=== PATIENT | male | born 1965 | race Caucasian/White ===

== ENCOUNTER → 2016-09-17 | Outpatient (CLI) | payer OTHER ==
[~2016-09-17] MED LIST: /BACL20TA; /DULO30CA; /DULO30CA OR; /FEXO18TA OR; /LANS30GR; /LANS30GR OR; /OXYC15TA; /TAMS4CA OR; ABIL1TAB5 PO; ABIL5TAB OR; ABIL5TAB5 PO; ADDE10CA PO; ADDE10TA PO; ADDE1TAB22 PO; ADDE5TAB5 PO; ADVAIR; ADVAIR INH; ALBU17IN2 IN; ALBUPOW9 INH; ARTHROTEC; ARTHROTEC OR; ASPI81TA85 PO; ATARAX OR; BACL10TA2 PO; CETI10TA OR; CLAR5CHW; CLAR5CHW OR; COLA100C2; COLA100C2 OR; CYCL10TA PO; DEPA250T32 PO; DEPA500T OR; DIAZ10TA2 PO; DOXY100T; DOXY100T OR; EFFE150C OR; ERYTHROMYCI1; ETOD20CA PO; FLECTOR PATCH; FLEX10TA2 PO; FLEXERIL; FLEXERIL PO; HYDR25TA8; HYDR25TA8 OR; IBUP80TA PO; LATU40TA PO; LIDO5DIS; LIDO5DIS EX; LYRI150C; LYRI200C; LYRI200C OR; LYRI225C; LYRI300C; MAGN500T2; METH5TAB2 OR; METH750T PO; METO5TAB2 OR; MIRT15TA50 PO; MULTIVIT OR; MULTIVIT PO; OPAN10TA16; OXYC10TA12 OR; OXYCODONE IR PO; PERC7.5T12 PO; PHEN 25 OR; PRAV10TA4 OR; PROTOPIC; PROV200T5 OR; PROV90AE; PROVIGIL; Patanol OU; RITA10TA; ROBA500T OR; SERO50TA PO; SERO50TA3 PO; SING10TA31; SING10TA31 OR; SKEL800T5 OR; SUMAPOW3 PO; TEMA15CA2 OR; TEMA30CA; TEMA30CA OR; TESTPOW5 IM; THERGRAN; TIZA4CAP3 PO; TIZA4TAB OR; TOPI100T; TRAM50TA2; TRAM50TA2 OR; TRAZ100T; TRAZ100T OR; TYLE500T53 OR; ULTR200T; ULTR300T; VENL75TA2 OR; VITA100027; VITA100027 OR; VITA100037 PO; VITA100072 PO; VOLT1GEL; VOLT1GEL EX; VOLT1GEL TOP; WELL100T PO; ZANA4CAP PO; ZOMI5TAB; ZOMI5TAB OR; mirtazapine PO; testosterone INJ; wellbutrin PO
--- NOTE | 2016-09-21 00:04 | ECWPNPC ---
PATIENT NAME: ROGERIO MEDINA : 1965 GENDER: MALE VISIT DATE: 09/17/2016 DISCHARGE DATE: 09/17/16 1012 VISIT LOCKED DATE TIME: PHYSICIAN: JENNIFER CAMPBELL RESOURCE: JENNIFER CAMPBELL REASON FOR APPOINTMENT 1. W/C BACK HISTORY OF PRESENT ILLNESS HISTORY OF PRESENT ILLNESS: PAIN THE PATIENT DESCRIBES THE PAIN... 50 YEAR OLD PATIENT WITH HISTORY OF CHRONIC BACK PAIN. PATIENT DESCRIBES THE PAIN ACHING, BURNING, SHARP, STABBING, TENDER, SORE, AND HAVING IT ALL THE TIME WITH A PAIN SCORE OF 8/10. PATIENT WAS INJURED IN A WORK RELATED INJURY ON 04/09/89 WHEN HE FELL OFF A ROOF WORKING FOR [employer] AND INJURED HIS THORACIC AND LUMBAR AREA, PATIENT WHEN TO THE ER THAT DAY. PATIENT WAS INJURED IN A WORK RELATED INJURY ON 09/20/1989 WHEN HE SLIPPED ON [employer] AND FELL DOWN, PATIENT WHEN TO THE ER THAT DAY AND PATIENT REPORTS THIS WAS THE LAST DAY THAT HE WORKED. PATIENT STATES THAT HE IS BIPOLAR. PATIENT STATES THAT HIS PAIN LEVELS HAVE GONE UP SINCE HIS LAST FOLLOW UP VISIT. PATIENT REPORTS THAT THE NUMBNESS THAT STARTS IN HIS LOW BACK AREA AND RADIATES DOWN TO HIS WHOLE RIGHT LEG TO THE FOOT, HAS BECOME A BURNING PAIN. PATIENT REPORTS THAT GABAPENTIN AND METHADONE DOES HELP WITH KEEPING HIS PAIN LEVELS DOWN, THAT HE WOULD BE IN UNCONTROLLABLE PAIN WITHOUT THE MEDICATIONS. PATIENT INDICATES, THE GABAPENTIN KEEPS THE BURNING PAIN FROM RADIATING ALL THE WAY DOWN TO HIS RIGHT FOOT AND STOPS IN THE RIGHT KNEE AREA. PATIENT REPORTS THAT HE NOTICES THAT HE HAS MORE PAIN IN THE MORNING THAN IN THE AFTERNOON. PATIENT DENIES UNEXPLAINABLE WEIGHT LOSS, FEVER, CHILLS, NEW CHANGES ON HIS URINARY OR BOWEL CONTROL. FALL RISK SCREENING: SCREENING :NO FALLS IN THE PAST YEAR CURRENT MEDICATIONS TAKING PREVACID 30 MG CAPSULE DELAYED RELEASE 1 CAPSULE BEFORE A MEAL ORALLY DAILY (DR. THOMAS) TAKING LIDODERM 5 % PATCH 3 PATCH TO INTACT SKIN REMOVE AFTER 12 HOURS EXTERNALLY 2 THORAX1 BACK APPLY TO PAINFUL AREA OF BACK ON 12 HRS, OFF 12 HRS TAKING IBUPROFEN 800 MG TABLET 1 TABLET ORALLY THREE TIMES A DAY TAKING GABAPENTIN 300 MG CAPSULE 1 CAPSULE ORALLY WORKERS COMPENSATION THREE TIMES A DAY FOR PAIN TAKING CYANOCOBALAMIN 1000 MCG TABLET 1 TABLET ORALLY EVERY OTHER DAY FOR B12 DEFICIENCY TAKING EPIPEN 2-PIERCE 0.3 MG/0.3ML DEVICE DIRECTED INJECTION ONCE FOR ALLERGIC REACTION, NOTES: NONE RECENTLY TAKING METRONIDAZOLE 0.75 % CREAM 1 APPLICATION A THIN LAYER TO AFFECTED AREA EXTERNALLY TWICE A DAY FOR ROSACEA TAKING CLINDAMYCIN PHOSPHATE 1 % SOLUTION 1 DROP TO RASH ON CHEST, BACK AND LEGS EXTERNALLY BID PRN, NOTES: NONE RECENT TAKING CLOTRIMAZOLE-BETAMETHASONE 1-0.05 % CREAM 1 APPLICATION TO BACK/CHEST/LEGS EXTERNALLY TWICE A DAY PRN FOLLICULITIS, NOTES: NONE RECENT TAKING MULTIVITAMINS MVI TABLET 1 TAB(S) ORALLY DAILY FOR GENERAL HEALTH TAKING VITAMIN D 1000 UNIT CAPSULE 1 CAPSULE ORALLY ONCE A DAY TAKING ASPIR-81 81 MG TABLET DELAYED RELEASE 1 TABLET ORALLY ONCE A DAY TAKING ARTIFICIAL TEARS 0.4 % SOLUTION 1 DROP INTO EACH EYE OPHTHALMIC UP TO 6 TIMES DAILY PRN DRY EYES TAKING AZELASTINE HCL 0.05 % SOLUTION 1 DROP INTO AFFECTED EYE OPHTHALMIC TWICE A DAY PRN ALLERGIES, NOTES: 1 WK TAKING HYDROXYZINE HCL 25MG TABLET 1 TABLET BY MOUTH QID PRN TAKING EVZIO 0.4 MG/0.4ML SOLUTION AUTO-INJECTOR DIRECTED INJECTION FOR EMERGENCY USE ONLY, NOTES: NONE RECENT TAKING ABILIFY 20 MG TABLET 1 TABLET ORALLY ONCE A DAY TAKING COLACE 100 MG CAPSULE 2 CAPSULES ORALLY FOUR TIMES A DAY TAKING PRAZOSIN HCL 1 MG CAPSULE 2 CAPSULE ORALLY QHS MDD=2 TAKING VOLTAREN 1 % GEL ONE APPLICATION EXTERNALLY EVERY 6 HOURS NEEDED TO LOW BACK, NOTES: INTERMITTENTLY TAKING SUMATRIPTAN SUCCINATE 100 MG TABLET 1 TABLET NEEDED ONE TIME ORALLY ONCE A DAY, NOTES: 2 MOS AGO TAKING TESTOSTERONE CYPIONATE 200 MG/ML OIL 1.75 ML INTRAMUSCULAR INJECTED MONTHLY (MDD: 1.75 ML/MONTH), NOTES: 03-17-16 TAKING PRAVASTATIN SODIUM 10 MG TABLET 1 TABLET ORALLY ONCE A DAY TAKING METHADONE HCL 10 MG TABLET 1 TABLET ORALLY 1 EVERY 6 HRS NEEDED DAILY FOR PAIN MDD4 TAKING ZANAFLEX 4 MG TABLET 1 TABLET NEEDED ORALLY 2 AT BEDTIME TAKING ADDERALL 15 MG TABLET 1 TAB(S) ORALLY TWICE DAILY MDD=2 TAKING BUPROPION HCL (XL) 450 MG TABLET EXTENDED RELEASE 24 HOUR TAKE ONE TABLET BY MOUTH EVERY MORNING ORALLY ONCE A DAY TAKING ZYRTEC 10 MG TABLET 1 TABLET ORALLY ONCE A DAY TAKING MIRTAZAPINE 45 MG TABLET 1 TABLET BEFORE BEDTIME IN THE EVENING ORALLY ONCE A DAY TAKING DEPAKOTE ER 250 MG TABLET EXTENDED RELEASE 24 HOUR 1 TAB(S) ORALLY DAILY TAKING DIAZEPAM 10 MG TABLET 1 TABLET NEEDED ORALLY TWICE DAILY PRN MDD=2 NOT-TAKING ERYTHROMYCIN 2 % PAD 1 PAD TO FACE NEEDED EXTERNALLY TWICE A DAY FOR ROSACEA NOT-TAKING BUPROPION HCL (XL) 300 MG TABLET EXTENDED RELEASE 24 HOUR TAKE ONE TABLET BY MOUTH EVERY MORNING ORALLY ONCE A DAY NOT-TAKING ALBUTEROL SULFATE HFA 108 (90 BASE) MCG/ACT AEROSOL SOLUTION 2 PUFFS INHALATION ONCE DAILY NEEDED, NOTES: NONE RECENTLY MEDICATION LIST REVIEWED AND RECONCILED WITH THE PATIENT PAST MEDICAL HISTORY CHRONIC BACK PAIN H/O T8 FRACTURE AND T6-7 DISC HERNIATION ASTHMA ALLERGIC RHINITIS DEPRESSION/BIPOLAR DISORDER ERECTILE DYSFUNCTION ROSACEA/FOLLICULIITS H/O KIDNEY STONES GASTROPARESIS INSOMNIA LOW TESOSTERONE HERNIATED DISC L3-L5, ALLERGIES ENVIRONMENTAL: ITCHY EYES, WHEEZING, SNEEZING: ALLERGY SURGICAL HISTORY TESTICLE REMOVED 02/2016 FAMILY HISTORY NO FAMILY HISTORY DOCUMENTED. SOCIAL HISTORY GENERAL: TOBACCO USE ARE YOU A:NONSMOKER LEARNING BARRIERS / SPECIAL NEEDS ORIENTED TO PLAN OF CARE: PATIENT, PAIN MANAGEMENT PATIENT, ORIENTED TO PLAN OF CARE: PATIENT, PAIN MANAGEMENT PATIENT. NEW PATIENT PAIN DIARY TODAY'S VISITNOTES FROM 0-10, WHAT LEVEL IS YOUR PAIN TODAY?0 PAIN CLINIC PFS, CLERGY, PUBLIC HEALTH REFERRALS PFS REFERRAL NEEDED?NO CLERGY REFERRAL NEEDED?NO PUBLIC HEALTH REFERRAL NEEDED?NO WAS THE PROVIDER NOTIFIED OF ANY PERTINENT INFO?NO PFS REFERRAL NEEDED?NO CLERGY REFERRAL NEEDED?NO PUBLIC HEALTH REFERRAL NEEDED?NO WAS THE PROVIDER NOTIFIED OF ANY PERTINENT INFO?NO HOSPITALIZATION/MAJOR DIAGNOSTIC PROCEDURE ACCIDENTAL OVERDOSE (SLEEPING PILLS) WAVERLY 11/2010 BIPOLAR DISORDER ([facility]) 2011 REVIEW OF SYSTEMS CONSTITUTIONAL: ANY CHANGE IN YOUR MEDICAL CONDITION? NO . CHILLS NO . FEVER NO . INFECTION: DO YOU HAVE NEW INFECTIONS? NO . DO YOU HAVE HISTORY OF MRSA? NO . MUSCULOSKELETAL: ANY NEW PATTERNS OF PAIN OR NUMBNESS? NO . GASTROENTEROLOGY: ANY NEW CHANGE IN BOWEL CONTROL? NO . GENITOURINARY: ANY NEW CHANGE IN BLADDER CONTROL? NO . IS THERE A CHANCE YOU COULD BE ? NO . HEMATOLOGY/LYMPH: DO YOU TAKE ANY BLOOD THINNERS? (FOR EXAMPLE- COUMADIN, PLAVIX, AGGRENOX, PLATEL, PRADAXA, OR XARELTO) NO . WHEN WAS YOUR LAST DOSE? DATE: TIME: . NEUROLOGY: HAVE YOU FALLEN IN THE PAST 6 MONTHS? NO . ANY NEW EXTREMITY NUMBNESS OR WEAKNESS? NO . CARDIOLOGY: DO YOU HAVE A PACEMAKER OR DEFIBRILLATOR? NO . RESPIRATORY: HAVE YOU BEEN SICK IN THE PAST WEEK? NO . FEVER NO . FLU LIKE SYMPTOMS? NO . COUGH NO . INTEGUMENTARY: DO YOU HAVE ANY RASHES OR OPEN SORES? NO . ALLERGIC/IMMUNO: ARE YOU ALLERGIC TO SHELLFISH OR IV DYE? NO . ANY NEW ALLERGIES? NO . PSYCHIATRIC: DO YOU HAVE THOUGHTS OF HURTING YOURSELF OR SOMEONE ELSE? NO . ARE YOU ABUSED, NEGLECTED, OR IN AN UNSAFE ENVIRONMENT? NO . ENDOCRINOLOGY: ARE YOU DIABETIC? NO . OTHER: DO YOU NEED ANY PRESCRIPTIONS? YES NEE TIZANADINE . IF YES, PLEASE LIST: ____ . ANY NEW PROBLEMS WITH YOUR MEDICATIONS? NO . WHEN DID YOU LAST EAT? ____ . WHEN DID YOU LAST DRINK? ____ . WHAT DID YOU LAST DRINK? ____ . NAME OF PERSON DRIVING YOU HOME? ____ . DO YOU HAVE ANY OTHER QUESTIONS OR CONCERNS NO . REVIEWED BY: PROVIDER: JENNIFER CAMPBELL MD . VITAL SIGNS WT 175 LBS, HT 68 IN, BMI 26.61 INDEX, BP 133/75 MM HG, HR 94 /MIN, RR 16 /MIN, TEMP 97.6 F, OXYGEN SAT % 98, SAFE IN ENV? (Y/N) Y, NA INITIALS TL 0851, REVIEWED BY: KG. EXAMINATION : PATIENT IS ALERT O X 3 AND COOPERATIVE. PATIENT AMBULATES FLEXED OVER AT 5 DEGREES WITH AN ANTALGIC GAIT. PATIENT IS ABLE TO EXTEND BACK AT 5 DEGREES AND FLEX AT 80 DEGREES. LEFT LEG IS WEAKER ESPECIALLY AT FLEXION AND EXTENSION, AND BOTH LEGS ARE RELATIVELY WEAK. PAIN IN THE LUMBAR AND THORACIC AREA. MRI OF THE LUMBAR SPINE DONE ON 12/23/2015 SHOWS A DIFFUSE DISC BULGES AT L3-L4, L4-L5, AND L5-S1 LEVELS WITH MINIMAL THECAL SAC COMPRESSION AT L3-L4 AND L4-L5, THERE IS A GRADE 1 SPONDYLOLISTHESIS OF L5 ON S1, AND THERE IS A COMPRESSION OF THE L5 NERVES IN THE NEURAL FORAMINA. EKG DONE ON 02/25/2016 HAS A QT INTERVAL OF 346 NAYELY SECONDS. 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 RADICULOPATHY, LUMBOSACRAL REGION - M51.17 TREATMENT SACROILIITIS, NOT ELSEWHERE CLASSIFIED REFILL LIDODERM PATCH, 5 %, 3 PATCH TO INTACT SKIN REMOVE AFTER 12 HOURS, EXTERNALLY 2 THORAX1 BACK, APPLY TO PAINFUL AREA OF BACK ON 12 HRS, OFF 12 HRS, 30 DAYS, 90, REFILLS 2 REFILL IBUPROFEN TABLET, 800 MG, 1 TABLET, ORALLY WITH FOOD, THREE TIMES A DAY, 30 DAY(S), 90 TABLET, REFILLS 1 REFILL GABAPENTIN CAPSULE, 300 MG, 1 CAPSULE, ORALLY WORKERS COMPENSATION, FOUR TIMES DAILY MDD4, 30 DAY(S), 120, REFILLS 2 REFILL PREVACID CAPSULE DELAYED RELEASE, 30 MG, 1 CAPSULE BEFORE A MEAL, ORALLY, DAILY, 30 DAY(S), 30, REFILLS 2 REFILL METHADONE HCL TABLET, 10 MG, 1 TABLET, ORALLY, 1 EVERY 6 HRS NEEDED DAILY FOR PAIN MDD4, 30 DAY(S), 120, REFILLS 0 REFILL ZANAFLEX TABLET, 4 MG, 1 TABLET NEEDED, ORALLY, BEFORE BEDTIME MAY REPEAT IN 4 HRS MDD2, 30 DAY(S), 60, REFILLS 2 REFILL COLACE CAPSULE, 100 MG, 2 CAPSULES, ORALLY, FOUR TIMES A DAY MDD8, 30 DAY(S), 240, REFILLS 2 REFILL VOLTAREN GEL, 1 %, ONE APPLICATION, EXTERNALLY, EVERY 6 HOURS NEEDED TO LOW BACK, 30 DAY(S), 3 TUBE, REFILLS 2, NOTES: INTERMITTENTLY NOTES: WE DISCUSSED SEVERAL ISSUES WITH MR. MEDINA'S PAIN MANAGEMENT CASE. PATIENT IS TAKING GABAPENTIN FOR NEUROPATHIC PAIN AND IS WORKING WELL IN DECREASE SOME OF THE PAIN. PATIENT WILL START ON 4 TABLETS OF GABAPENTIN A DAY TO SEE IF THERE ANY FURTHER PAIN RELIEF FROM NEUROPATHIC PAIN. PATIENT WILL RECEIVE A SIJ UNDER MTG, SCHEDULED NEXT WEEK, I ADVISED PATIENT TO SEE HOW THE PAIN RELIEF GOES WITH THE COMBINATION OF MEDICATION AND INJECTION. PATIENT WILL RECEIVE A REFILL OF LIDODERM PATCH, IBUPROFEN, GABAPENTIN, PREVACID, METHADONE, ZANAFLEX, COLACE, AND VOLTAREN. THE CURRENT MEDICATIONS TAKEN INCREASES THE PATIENT'S MOBILITY AND FUNCTIONALITY. UTOX DONE ON 07/01/2016 SHOWS CONSISTENT RESULTS. OPIOID RISK TOOL COMPLETED TODAY. INSTRUCTIONS WERE GIVEN, QUESTIONS WERE ANSWERED, PATIENT REPORTS UNDERSTANDING AND AGREES WITH THE PLAN. I, QUYNH HOLGUIN, DOCUMENTED THE ABOVE INFORMATION ACTING A SCRIBE FOR DR. CAMPBELL. I HAVE REVIEWED THE ABOVE DOCUMENT, WRITTEN BY QUYNH HOLGUIN SCRIBYumiko AND I VERIFY THAT IT IS ACCURATE. PROCEDURES PN WORKMANS' COMP OPINION IN YOUR OPINION, WAS THE INCIDENT THAT THE PATIENT DESCRIBED THE COMPETENT MEDICAL CAUSE OF THIS INJURY/ILLNESS? YES ARE THE PATIENT'S COMPLAINTS CONSISTENT WITH HIS/HER HISTORY OF THE INJURY/ILLNESS? YES IS THE PATIENT'S HISTORY OF THE INJURY/ILLNESS CONSISTENT WITH YOUR OBJECTIVE FINDING? YES WHAT IS THE PERCENTAGE OF TEMPORARY IMPAIRMENT? MARKED = 75% IS THE PATIENT WORKING? NO DOCTOR ON SITE: JENNIFER BACON MD PROCEDURE CODES FA211 ESTABILISHED PATIENT [facility] CHARGE G8730 PAIN ASSESS POS TOOL F/U PLAN DOC G8427 DOC MEDS VERIFIED W/PT OR RE FOLLOW UP 6 WEEKS ELECTRONICALLY SIGNED BY JENNIFER CAMPBELL MD ON 09/20/2016 AT 10:50 PM EST DISCLAIMER : THIS IS A VISIT SUMMARY EXTRACTED FROM THE [employer] CHART. IT IS NOT A COPY OF THE [employer] PROGRESS NOTE. VIJI
== END ==
LOC: M PAIN 08:40
PROVIDERS: ATTEND Anesthesiology
DX: M46.1 Sacroiliitis, not elsewhere classified (principal); M51.16 Intervertebral disc disorders with radiculopathy, lumbar region; M51.17 Intervertebral disc disorders with radiculopathy, lumbosacral region; M54.5 Low back pain; M89.29 Other disorders of bone development and growth, multiple sites; Z79.891 Long term (current) use of opiate analgesic; Z79.899 Other long term (current) drug therapy; Z79.82 Long term (current) use of aspirin; Z91.09 Other allergy status, other than to drugs and biological substances

== ENCOUNTER → 2016-09-23 | Outpatient (CLI) | payer OTHER ==
[~2016-09-23] MED LIST changes: +BUPIVACAINE HCL 0.25% 30 ML VIAL As Ordered ONE; +ISOVUE-M 300 61% 15ML VIAL (Q9967) As Ordered ONE; +LIDOCAINE 1% SDV INJ 30 ML VIAL As Ordered ONE; +TRIAMCINOLONE ACETONIDE SUSP 40 MG/ML VIAL (J3301) As Ordered ONE
--- NOTE | 2016-09-23 18:25 | REP ---
SI joint series: Limited. Five views: History: Injection procedure for pain. 18 seconds of fluoroscopy time is reported. Findings: A sequence of five fluoroscopically obtained intraprocedural spot radiographs of the SI joints document various needle positions and contrast injections associated with bilateral SI joint injection procedure. Signed by Souleymane Gloria MD 09/23/2016 06:42 P
--- NOTE | 2016-10-05 00:06 | ECWPNPC ---
PATIENT NAME: ROGERIO MEDINA : 1965 GENDER: MALE VISIT DATE: 09/23/2016 DISCHARGE DATE: 09/23/16 1029 VISIT LOCKED DATE TIME: PHYSICIAN: JENNIFER CAMPBELL RESOURCE: JENNIFER CAMPBELL REASON FOR APPOINTMENT 1. W/C SIJ HISTORY OF PRESENT ILLNESS HISTORY OF PRESENT ILLNESS: PAIN THE PATIENT DESCRIBES THE PAIN... FALL RISK SCREENING: SCREENING :NO FALLS IN THE PAST YEAR CURRENT MEDICATIONS TAKING CYANOCOBALAMIN 1000 MCG TABLET 1 TABLET ORALLY EVERY OTHER DAY FOR B12 DEFICIENCY, NOTES: 09/22/16 TAKING EPIPEN 2-PIERCE 0.3 MG/0.3ML DEVICE DIRECTED INJECTION ONCE FOR ALLERGIC REACTION, NOTES: NONE RECENTLY TAKING METRONIDAZOLE 0.75 % CREAM 1 APPLICATION A THIN LAYER TO AFFECTED AREA EXTERNALLY TWICE A DAY FOR ROSACEA, NOTES: NONE LATELY TAKING CLINDAMYCIN PHOSPHATE 1 % SOLUTION 1 DROP TO RASH ON CHEST, BACK AND LEGS EXTERNALLY BID PRN, NOTES: NONE RECENT TAKING CLOTRIMAZOLE-BETAMETHASONE 1-0.05 % CREAM 1 APPLICATION TO BACK/CHEST/LEGS EXTERNALLY TWICE A DAY PRN FOLLICULITIS, NOTES: NONE RECENT TAKING MULTIVITAMINS MVI TABLET 1 TAB(S) ORALLY DAILY FOR GENERAL HEALTH, NOTES: 09/23/16 0600 TAKING VITAMIN D 1000 UNIT CAPSULE 1 CAPSULE ORALLY ONCE A DAY, NOTES: 09/22/16 TAKING ASPIR-81 81 MG TABLET DELAYED RELEASE 1 TABLET ORALLY ONCE A DAY, NOTES: 09/22/16 2200 TAKING ARTIFICIAL TEARS 0.4 % SOLUTION 1 DROP INTO EACH EYE OPHTHALMIC UP TO 6 TIMES DAILY PRN DRY EYES, NOTES: 09/22/16 TAKING AZELASTINE HCL 0.05 % SOLUTION 1 DROP INTO AFFECTED EYE OPHTHALMIC TWICE A DAY PRN ALLERGIES, NOTES: NONE LATELY TAKING HYDROXYZINE HCL 25MG TABLET 1 TABLET BY MOUTH QID PRN TAKING EVZIO 0.4 MG/0.4ML SOLUTION AUTO-INJECTOR DIRECTED INJECTION FOR EMERGENCY USE ONLY, NOTES: NONE RECENT TAKING ABILIFY 20 MG TABLET 1 TABLET ORALLY ONCE A DAY, NOTES: 09/23/16 0600 TAKING PRAZOSIN HCL 1 MG CAPSULE 2 CAPSULE ORALLY QHS MDD=2, NOTES: 09/22/16 220 TAKING SUMATRIPTAN SUCCINATE 100 MG TABLET 1 TABLET NEEDED ONE TIME ORALLY ONCE A DAY, NOTES: NONE LATELY TAKING TESTOSTERONE CYPIONATE 200 MG/ML OIL 1.75 ML INTRAMUSCULAR INJECTED MONTHLY (MDD: 1.75 ML/MONTH), NOTES: 08/18/16 TAKING PRAVASTATIN SODIUM 10 MG TABLET 1 TABLET ORALLY ONCE A DAY, NOTES: 09/22/162199 TAKING ADDERALL 15 MG TABLET 1 TAB(S) ORALLY TWICE DAILY MDD=2, NOTES: 09/23/16599 TAKING BUPROPION HCL (XL) 450 MG TABLET EXTENDED RELEASE 24 HOUR TAKE ONE TABLET BY MOUTH EVERY MORNING ORALLY ONCE A DAY, NOTES: 09/23/16599 TAKING ZYRTEC 10 MG TABLET 1 TABLET ORALLY ONCE A DAY, NOTES: 09/23/16599 TAKING MIRTAZAPINE 45 MG TABLET 1 TABLET BEFORE BEDTIME IN THE EVENING ORALLY ONCE A DAY, NOTES: 09/22 TAKING DEPAKOTE ER 250 MG TABLET EXTENDED RELEASE 24 HOUR 1 TAB(S) ORALLY DAILY, NOTES: 09/22/162199 TAKING DIAZEPAM 10 MG TABLET 1 TABLET NEEDED ORALLY TWICE DAILY PRN MDD=2, NOTES: 09/23/16729 TAKING LIDODERM 5 % PATCH 3 PATCH TO INTACT SKIN REMOVE AFTER 12 HOURS EXTERNALLY 2 THORAX1 BACK APPLY TO PAINFUL AREA OF BACK ON 12 HRS, OFF 12 HRS, NOTES: 09/22/16 TAKING IBUPROFEN 800 MG TABLET 1 TABLET ORALLY WITH FOOD THREE TIMES A DAY, NOTES: 09/23/16599 TAKING GABAPENTIN 300 MG CAPSULE 1 CAPSULE ORALLY WORKERS COMPENSATION FOUR TIMES DAILY MDD4, NOTES: 09/23/16599 TAKING PREVACID 30 MG CAPSULE DELAYED RELEASE 1 CAPSULE BEFORE A MEAL ORALLY DAILY, NOTES: 09/23/16599 TAKING METHADONE HCL 10 MG TABLET 1 TABLET ORALLY 1 EVERY 6 HRS NEEDED DAILY FOR PAIN MDD4, NOTES: 09/23/16599 TAKING COLACE 100 MG CAPSULE 2 CAPSULES ORALLY FOUR TIMES A DAY MDD8, NOTES: 09/23/16599 TAKING VOLTAREN 1 % GEL ONE APPLICATION EXTERNALLY EVERY 6 HOURS NEEDED TO LOW BACK, NOTES: INTE09/21/16 TAKING ZANAFLEX 4 MG TABLET 1 TABLET NEEDED ORALLY BEFORE BEDTIME MAY REPEAT IN 4 HRS MDD2, NOTES: 09/22/162199 NOT-TAKING ERYTHROMYCIN 2 % PAD 1 PAD TO FACE NEEDED EXTERNALLY TWICE A DAY FOR ROSACEA NOT-TAKING ALBUTEROL SULFATE HFA 108 (90 BASE) MCG/ACT AEROSOL SOLUTION 2 PUFFS INHALATION ONCE DAILY NEEDED, NOTES: NONE RECENTLY DISCONTINUED BUPROPION HCL (XL) 300 MG TABLET EXTENDED RELEASE 24 HOUR TAKE ONE TABLET BY MOUTH EVERY MORNING ORALLY ONCE A DAY MEDICATION LIST REVIEWED AND RECONCILED WITH THE PATIENT PAST MEDICAL HISTORY CHRONIC BACK PAIN H/O T8 FRACTURE AND T6-7 DISC HERNIATION ASTHMA ALLERGIC RHINITIS DEPRESSION/BIPOLAR DISORDER ERECTILE DYSFUNCTION ROSACEA/FOLLICULIITS H/O KIDNEY STONES GASTROPARESIS INSOMNIA LOW TESOSTERONE HERNIATED DISC L3-L5, ALLERGIES ENVIRONMENTAL: ITCHY EYES, WHEEZING, SNEEZING: ALLERGY SOCIAL HISTORY GENERAL: TOBACCO USE ARE YOU A:NONSMOKER LEARNING BARRIERS / SPECIAL NEEDS ORIENTED TO PLAN OF CARE: PATIENT, PAIN MANAGEMENT PATIENT, ORIENTED TO PLAN OF CARE: PATIENT, PAIN MANAGEMENT PATIENT. NEW PATIENT PAIN DIARY TODAY'S VISITNOTES FROM 0-10, WHAT LEVEL IS YOUR PAIN TODAY?0 PAIN CLINIC PFS, CLERGY, PUBLIC HEALTH REFERRALS PFS REFERRAL NEEDED?NO CLERGY REFERRAL NEEDED?NO PUBLIC HEALTH REFERRAL NEEDED?NO WAS THE PROVIDER NOTIFIED OF ANY PERTINENT INFO?NO PFS REFERRAL NEEDED?NO CLERGY REFERRAL NEEDED?NO PUBLIC HEALTH REFERRAL NEEDED?NO WAS THE PROVIDER NOTIFIED OF ANY PERTINENT INFO?NO REVIEW OF SYSTEMS CONSTITUTIONAL: ANY CHANGE IN YOUR MEDICAL CONDITION? NO . CHILLS NO . FEVER NO . INFECTION: DO YOU HAVE NEW INFECTIONS? NO . DO YOU HAVE HISTORY OF MRSA? NO . MUSCULOSKELETAL: ANY NEW PATTERNS OF PAIN OR NUMBNESS? NO . GASTROENTEROLOGY: ANY NEW CHANGE IN BOWEL CONTROL? NO . GENITOURINARY: ANY NEW CHANGE IN BLADDER CONTROL? NO . IS THERE A CHANCE YOU COULD BE ? NO . HEMATOLOGY/LYMPH: DO YOU TAKE ANY BLOOD THINNERS? (FOR EXAMPLE- COUMADIN, PLAVIX, AGGRENOX, PLATEL, PRADAXA, OR XARELTO) NO . WHEN WAS YOUR LAST DOSE? DATE: TIME: . NEUROLOGY: HAVE YOU FALLEN IN THE PAST 6 MONTHS? NO . ANY NEW EXTREMITY NUMBNESS OR WEAKNESS? NO . CARDIOLOGY: DO YOU HAVE A PACEMAKER OR DEFIBRILLATOR? NO . RESPIRATORY: HAVE YOU BEEN SICK IN THE PAST WEEK? NO . FEVER NO . FLU LIKE SYMPTOMS? NO . COUGH NO . INTEGUMENTARY: DO YOU HAVE ANY RASHES OR OPEN SORES? NO . ALLERGIC/IMMUNO: ARE YOU ALLERGIC TO SHELLFISH OR IV DYE? NO . ANY NEW ALLERGIES? NO . PSYCHIATRIC: DO YOU HAVE THOUGHTS OF HURTING YOURSELF OR SOMEONE ELSE? NO . ARE YOU ABUSED, NEGLECTED, OR IN AN UNSAFE ENVIRONMENT? NO . ENDOCRINOLOGY: ARE YOU DIABETIC? NO . OTHER: DO YOU NEED ANY PRESCRIPTIONS? NO . IF YES, PLEASE LIST: ____ . ANY NEW PROBLEMS WITH YOUR MEDICATIONS? NO . WHEN DID YOU LAST EAT? ____09/22/16 2359 . WHEN DID YOU LAST DRINK? ____09/23/16 0600 . WHAT DID YOU LAST DRINK? ____BLACK COFFEE . NAME OF PERSON DRIVING YOU HOME? ____TERRI . DO YOU HAVE ANY OTHER QUESTIONS OR CONCERNS NO . REVIEWED BY: PROVIDER: . VITAL SIGNS WT 175 LBS, HT 68 IN, BMI 26.61 INDEX, BP 112/67 MM HG, HR 76 /MIN, RR 16 /MIN, TEMP 96.9 F, OXYGEN SAT % 96, NA INITIALS TL 0847, REVIEWED BY: MLF. ASSESSMENTS SACROILIITIS, NOT ELSEWHERE CLASSIFIED - M46.1 (PRIMARY) PROCEDURES PN SI PRE PROCEDURE DIAGNOSIS SACROILIITIS, SACROILIAC JOINT DYSFUNCTION POST PROCEDURE DIAGNOSIS SACROILIITIS, SACROILIAC JOINT DYSFUNCTION PROCEDURE BILATERAL SACROILIAC JOINT BLOCK SURGEON DR. JENNIFER CAMPBELL MEDICAL SECRETARY RECEPTIONIST NONE ANESTHESIA LOCAL PRE PROCEDURE NOTE PATIENT WITH HISTORY OF CHRONIC LOW BACK PAIN. I EVALUATED THE PATIENT AND REVIEWED THE CHART. I WENT OVER THE RISKS, ALTERNATIVES, AND BENEFITS ASSOCIATED WITH THIS PROCEDURE. THE PATIENT WOULD LIKE TO PROCEED AND GAVE CONSENT TO PERFORM THE PROCEDURE. THE PATIENT DENIES UNEXPLAINABLE WEIGHT LOSS, FEVER, CHILLS, OR NEW CHANGES IN URINARY OR BOWEL CONTROL DESCRIPTION OF PROCEDURE THE PATIENT WAS BROUGHT TO THE PROCEDURE ROOM AND PLACED IN THE PRONE POSITION. THE LUMBOSACRAL AREA WAS CLEANED WITH CHLORAPREP SOLUTION AND DRAPED ASEPTICALLY. THE PROCEDURE WAS DONE UNDER STERILE CONDITIONS. I CHECKED LATERALITY AND THE LEVEL WHERE THE PROCEDURE WAS GOING TO BE PERFORMED WITH THE PATIENT AND THE SUPPORTING STAFF AT THE MOMENT OF THE TIME OUT IN THE PROCEDURE ROOM. UNDER FLUOROSCOPIC GUIDANCE, TARGET POINT WAS SELECTED AT THE LOWER BORDER OF THE RIGHT AND LEFT SACROILIAC JOINT. TARGET POINT WAS SELECTED AFTER MEDIAL ROTATION AND TILT OF THE MAGNIFIER OF THE C-ARM. LIDOCAINE WAS USED TO NUMB THE SKIN AND SUBCUTANEOUS TISSUE BELOW IT. A SPINAL NEEDLE, 22-GAUGE, WAS ADVANCED UNDER FLUOROSCOPIC GUIDANCE AND FOLLOWING PATIENT FEEDBACK UNTIL THE TARGET AREA WAS TOUCHED. THE POSITION OF THE NEEDLE WAS VERIFIED WITH AP AND LATERAL VIEWS. AFTER PROPER POSITION OF THE NEEDLE WAS ACHIEVED, ISOVUE M DYE 30%, 0.25 ML, WAS INJECTED SHOWING SPREAD OF THE DYE. THEN, A SOLUTION OF 20 MG OF KENALOG WAS INJECTED IN RIGHT JOINT WITH 3 ML OF BUPIVACAINE 0.125%. THERE WAS NO EVIDENCE OF BLOOD, PARESTHESIA OR CEREBROSPINAL FLUID DURING THE PROCEDURE. THE PATIENT WAS SENT TO THE RECOVERY ROOM. THE PATIENT WAS MOVING THE EXTREMITIES AND DOING WELL. THERE WAS NO COMPLICATION DURING THE PROCEDURE. FLUOROSCOPY TIME WAS 18 SECONDS POST PROCEDURE NOTE THE PATIENT WILL BE SEEN IN A FOLLOW UP IN THE NEXT FEW WEEKS. INSTRUCTIONS WERE GIVEN, QUESTIONS WERE ANSWERED, AND THE PATIENT EXPRESSED UNDERSTANDING AND AGREED WITH THE PLAN. I, TIARA SPEAR, DOCUMENTED THE ABOVE INFORMATION ACTING A SCRIBE FOR DR. CAMPBELL. I, DR. CAMPBELL, HAVE REVIEWED THE ABOVE DOCUMENT, SCRIBED BY TIARA SPEAR, AND I VERIFY THAT IT IS ACCURATE DIAGNOSTIC IMAGING [facility] FLUORO GUIDANCE (PAIN)[id number] PROCEDURE CODES 54293 INJECT SACROILIAC JOINT 6045F RADXPS IN END [id number] PXD FOLLOW UP 3 WEEKS ELECTRONICALLY SIGNED BY JENNIFER CAMPBELL MD ON 10/04/2016 AT 08:08 PM EST DISCLAIMER : THIS IS A VISIT SUMMARY EXTRACTED FROM THE [employer] CHART. IT IS NOT A COPY OF THE [employer] PROGRESS NOTE. MTDD
== END ==
LOC: M PAIN 09:00
PROVIDERS: ATTEND Anesthesiology
DX: G89.29 Other chronic pain (principal); M46.1 Sacroiliitis, not elsewhere classified; J45.909 Unspecified asthma, uncomplicated; F31.9 Bipolar disorder, unspecified; L71.9 Rosacea, unspecified; F41.9 Anxiety disorder, unspecified; K31.84 Gastroparesis; G47.00 Insomnia, unspecified; F17.200 Nicotine dependence, unspecified, uncomplicated; Z79.82 Long term (current) use of aspirin; Z79.1 Long term (current) use of non-steroidal anti-inflammatories (NSAID); Z79.899 Other long term (current) drug therapy; Z87.81 Personal history of (healed) traumatic fracture; Z98.890 Other specified postprocedural states
CPT/HCPCS: G0260; J3301; Q9967

== ENCOUNTER → 2016-11-30 | Outpatient (CLI) | payer OTHER ==
[~2016-11-30] MED LIST changes: -BUPIVACAINE HCL 0.25% 30 ML VIAL As Ordered ONE; -ISOVUE-M 300 61% 15ML VIAL (Q9967) As Ordered ONE; -LIDOCAINE 1% SDV INJ 30 ML VIAL As Ordered ONE; -TRIAMCINOLONE ACETONIDE SUSP 40 MG/ML VIAL (J3301) As Ordered ONE
--- NOTE | 2016-12-13 23:40 | ECWPNPC ---
PATIENT NAME: ROGERIO MEDINA : 1965 GENDER: MALE VISIT DATE: 11/30/2016 DISCHARGE DATE: 11/30/16 1445 VISIT LOCKED DATE TIME: PHYSICIAN: JENNIFER CAMPBELL RESOURCE: JENNIFER CAMPBELL REASON FOR APPOINTMENT 1. POST SIJ, W/C BACK/THORACIC HISTORY OF PRESENT ILLNESS HISTORY OF PRESENT ILLNESS: PAIN THE PATIENT DESCRIBES THE PAIN... 51 YEAR OLD PATIENT WITH HISTORY OF CHRONIC BACK PAIN. PATIENT DESCRIBES THE PAIN ACHING, BURNING, SHARP, STABBING, TENDER, SORE, SHOOTING, IT COMES AND GOES, AND HAVING IT ALL THE TIME WITH A PAIN SCORE OF 4/10 IN THE LOW BACK AND 8/10 IN THE MID BACK ON TODAY'S VISIT. 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 PATIENT WAS INJURED IN A WORK RELATED INJURY ON 09/20/1989 WHEN HE SLIPPED ON [employer]AIRS AND FELL DOWN, PATIENT WHEN TO THE ER THAT DAY AND PATIENT REPORTS THIS WAS THE LAST DAY THAT HE WORKED. PATIENT STATES THAT HE IS BIPOLAR. PATIENT RECEIVED A SACROILIAC JOINT INJECTION ON 09/23/2016 AND REPORTS OF GETTING GOOD PAIN RELIEF FOR ABOUT 2 MONTHS IN HIS LOWER BACK AND AT THIS TIME STILL PROVIDING PAIN RELIEF. PATIENT REPORTS THAT HIS PAIN IS MAINLY IN HIS THORACIC AREA NOW. PATIENT DENIES UNEXPLAINABLE WEIGHT LOSS, FEVER, CHILLS, NEW CHANGES ON HIS URINARY OR BOWEL CONTROL. FALL RISK SCREENING: SCREENING :NO FALLS IN THE PAST YEAR CURRENT MEDICATIONS TAKING CYANOCOBALAMIN 1000 MCG TABLET 1 TABLET ORALLY EVERY OTHER DAY FOR B12 DEFICIENCY TAKING EPIPEN 2-PIERCE 0.3 MG/0.3ML DEVICE DIRECTED INJECTION ONCE FOR ALLERGIC REACTION TAKING METRONIDAZOLE 0.75 % CREAM 1 APPLICATION A THIN LAYER TO AFFECTED AREA EXTERNALLY TWICE A DAY FOR ROSACEA TAKING CLINDAMYCIN PHOSPHATE 1 % SOLUTION 1 DROP TO RASH ON CHEST, BACK AND LEGS EXTERNALLY BID PRN TAKING CLOTRIMAZOLE-BETAMETHASONE 1-0.05 % CREAM 1 APPLICATION TO BACK/CHEST/LEGS EXTERNALLY TWICE A DAY PRN FOLLICULITIS TAKING MULTIVITAMINS MVI TABLET 1 TAB(S) ORALLY DAILY FOR GENERAL HEALTH TAKING VITAMIN D 1000 UNIT CAPSULE 1 CAPSULE ORALLY ONCE A DAY TAKING ASPIR-81 81 MG TABLET DELAYED RELEASE 1 TABLET ORALLY ONCE A DAY TAKING ARTIFICIAL TEARS 0.4 % SOLUTION 1 DROP INTO EACH EYE OPHTHALMIC UP TO 6 TIMES DAILY PRN DRY EYES TAKING AZELASTINE HCL 0.05 % SOLUTION 1 DROP INTO AFFECTED EYE OPHTHALMIC TWICE A DAY PRN ALLERGIES TAKING HYDROXYZINE HCL 25MG TABLET 1 TABLET BY MOUTH QID PRN TAKING EVZIO 0.4 MG/0.4ML SOLUTION AUTO-INJECTOR DIRECTED INJECTION FOR EMERGENCY USE ONLY TAKING TESTOSTERONE CYPIONATE 200 MG/ML OIL 1.75 ML INTRAMUSCULAR INJECTED MONTHLY (MDD: 1.75 ML/MONTH) TAKING PRAVASTATIN SODIUM 10 MG TABLET 1 TABLET ORALLY ONCE A DAY TAKING BUPROPION HCL ER (XL) 450 MG TABLET EXTENDED RELEASE 24 HOUR TAKE ONE TABLET BY MOUTH EVERY MORNING ORALLY ONCE A DAY TAKING ZYRTEC 10 MG TABLET 1 TABLET ORALLY ONCE A DAY TAKING MIRTAZAPINE 45 MG TABLET 1 TABLET BEFORE BEDTIME IN THE EVENING ORALLY ONCE A DAY TAKING DEPAKOTE ER 250 MG TABLET EXTENDED RELEASE 24 HOUR 1 TAB(S) ORALLY DAILY TAKING LIDODERM 5 % PATCH 3 PATCH TO INTACT SKIN REMOVE AFTER 12 HOURS EXTERNALLY 2 THORAX1 BACK APPLY TO PAINFUL AREA OF BACK ON 12 HRS, OFF 12 HRS TAKING IBUPROFEN 800 MG TABLET 1 TABLET ORALLY WITH FOOD THREE TIMES A DAY TAKING GABAPENTIN 300 MG CAPSULE 1 CAPSULE ORALLY WORKERS COMPENSATION FOUR TIMES DAILY MDD4 TAKING COLACE 100 MG CAPSULE 2 CAPSULES ORALLY FOUR TIMES A DAY MDD8 TAKING VOLTAREN 1 % GEL ONE APPLICATION EXTERNALLY EVERY 6 HOURS NEEDED TO LOW BACK TAKING ZANAFLEX 4 MG TABLET 1 TABLET NEEDED ORALLY BEFORE BEDTIME MAY REPEAT IN 4 HRS MDD2 TAKING PRAZOSIN HCL 1 MG CAPSULE 2 CAPSULE ORALLY QHS MDD=2 TAKING ABILIFY 20 MG TABLET 1 TABLET ORALLY ONCE A DAY TAKING SUMATRIPTAN SUCCINATE 100 MG TABLET 1 TABLET NEEDED, REPEAT ONCE AFTER 2 HOURS PRN ORALLY ONCE A DAY MDD=2 MAX 4 MIGRAINES/MONTH TAKING METHADONE HCL 10 MG TABLET 1 TABLET ORALLY 1 EVERY 6 HRS NEEDED DAILY FOR PAIN MDD4 TAKING PREVACID 30 MG CAPSULE DELAYED RELEASE 1 CAPSULE BEFORE A MEAL ORALLY DAILY TAKING ADDERALL 15 MG TABLET 1 TAB(S) ORALLY TWICE DAILY MDD=2 TAKING DIAZEPAM 10 MG TABLET 1 TABLET NEEDED ORALLY TWICE DAILY PRN MDD=2 NOT-TAKING ERYTHROMYCIN 2 % PAD 1 PAD TO FACE NEEDED EXTERNALLY TWICE A DAY FOR ROSACEA NOT-TAKING ALBUTEROL SULFATE HFA 108 (90 BASE) MCG/ACT AEROSOL SOLUTION 2 PUFFS INHALATION ONCE DAILY NEEDED, NOTES: NONE RECENTLY MEDICATION LIST REVIEWED AND RECONCILED WITH THE PATIENT PAST MEDICAL HISTORY CHRONIC BACK PAIN H/O T8 FRACTURE AND T6-7 DISC HERNIATION ASTHMA ALLERGIC RHINITIS DEPRESSION/BIPOLAR DISORDER ERECTILE DYSFUNCTION ROSACEA/FOLLICULIITS H/O KIDNEY STONES GASTROPARESIS INSOMNIA LOW TESOSTERONE HERNIATED DISC L3-L5, ALLERGIES ENVIRONMENTAL: ITCHY EYES, WHEEZING, SNEEZING: ALLERGY SURGICAL HISTORY TESTICLE REMOVED 02/2016 FAMILY HISTORY NO FAMILY HISTORY DOCUMENTED. SOCIAL HISTORY GENERAL: PAIN CLINIC PFS, CLERGY, PUBLIC HEALTH REFERRALS CLERGY REFERRAL NEEDED?NO WAS THE PROVIDER NOTIFIED OF ANY PERTINENT INFO?NO PFS REFERRAL NEEDED?NO PUBLIC HEALTH REFERRAL NEEDED?NO PATIENT: ____. HOSPITALIZATION/MAJOR DIAGNOSTIC PROCEDURE ACCIDENT[facility]DOSE ([facility] P[facility] 2011 REVIEW OF SYSTEMS CONSTITUTIONAL: ANY CHANGE IN YOUR MEDICAL CONDITION? NO . CHILLS NO . FEVER NO . INFECTION: DO YOU HAVE NEW INFECTIONS? NO . DO YOU HAVE HISTORY OF MRSA? NO . MUSCULOSKELETAL: ANY NEW PATTERNS OF PAIN OR NUMBNESS? NO . GASTROENTEROLOGY: ANY NEW CHANGE IN BOWEL CONTROL? NO . GENITOURINARY: ANY NEW CHANGE IN BLADDER CONTROL? NO . IS THERE A CHANCE YOU COULD BE ? NO . HEMATOLOGY/LYMPH: DO YOU TAKE ANY BLOOD THINNERS? (FOR EXAMPLE- COUMADIN, PLAVIX, AGGRENOX, PLATEL, PRADAXA, OR XARELTO) NO . WHEN WAS YOUR LAST DOSE? DATE: TIME: . NEUROLOGY: HAVE YOU FALLEN IN THE PAST 6 MONTHS? NO . ANY NEW EXTREMITY NUMBNESS OR WEAKNESS? NO . CARDIOLOGY: DO YOU HAVE A PACEMAKER OR DEFIBRILLATOR? NO . RESPIRATORY: HAVE YOU BEEN SICK IN THE PAST WEEK? NO . FEVER NO . FLU LIKE SYMPTOMS? NO . COUGH NO . INTEGUMENTARY: DO YOU HAVE ANY RASHES OR OPEN SORES? NO . ALLERGIC/IMMUNO: ARE YOU ALLERGIC TO SHELLFISH OR IV DYE? NO . ANY NEW ALLERGIES? NO . PSYCHIATRIC: DO YOU HAVE THOUGHTS OF HURTING YOURSELF OR SOMEONE ELSE? NO . ARE YOU ABUSED, NEGLECTED, OR IN AN UNSAFE ENVIRONMENT? NO . ENDOCRINOLOGY: ARE YOU DIABETIC? NO . OTHER: DO YOU NEED ANY PRESCRIPTIONS? YES, TIZANIDINE, GABAPENTIN, METHADONE, IBUPROFEN . IF YES, PLEASE LIST: ____ . ANY NEW PROBLEMS WITH YOUR MEDICATIONS? NO . WHEN DID YOU LAST EAT? ____ . WHEN DID YOU LAST DRINK? ____ . WHAT DID YOU LAST DRINK? ____ . NAME OF PERSON DRIVING YOU HOME? ____ . DO YOU HAVE ANY OTHER QUESTIONS OR CONCERNS NO . REVIEWED BY: PROVIDER: JENNIFER CAMPBELL MD . VITAL SIGNS WT 178 LBS, HT 68 IN, BMI 27.06 INDEX, BP 134/76 MM HG, HR 83 /MIN, RR 16 /MIN, TEMP 98.9 F, OXYGEN SAT % 96%, SAFE IN ENV? (Y/N) Y, NA INITIALS [id number], REVIEWED BY: TORO. EXAMINATION : PATIENT IS ALERT O X 3 AND COOPERATIVE. PATIENT AMBULATES WITH AN ANTALGIC GAIT AND A LIMP ON THE RIGHT LEG. PATIENT HAS TENDERNESS IN THE THORACIC FACET JOINTS. MRI OF THE THORACIC SPINE DONE ON 10/11/2006 SHOWS A STABLE COMPRESSION DEFORMITY OF T8 AND DISC BULGE AT T6-T7. MRI OF THE LUMBAR SPINE DONE ON 12/23/2015 SHOWS A DIFFUSE DISC BULGES AT L3-L4, L4-L5, AND L5-S1 LEVELS WITH MINIMAL THECAL SAC COMPRESSION AT L3-L4 AND L4-L5, THERE IS A GRADE 1 SPONDYLOLISTHESIS OF L5 ON S1, AND THERE IS A COMPRESSION OF THE L5 NERVES IN THE NEURAL FORAMINA. EKG DONE ON 02/25/2016 HAS A QT INTERVAL OF 346 NAYELY SECONDS. 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 RADICULOPATHY, LUMBOSACRAL REGION - M51.17 SPONDYLOSIS WITHOUT MYELOPATHY OR RADICULOPATHY, THORACIC REGION - M47.814 TREATMENT SACROILIITIS, NOT ELSEWHERE CLASSIFIED REFILL IBUPROFEN TABLET, 800 MG, 1 TABLET, ORALLY WITH FOOD, THREE TIMES A DAY, 30 DAY(S), 90 TABLET, REFILLS 1 REFILL GABAPENTIN CAPSULE, 300 MG, 1 CAPSULE, ORALLY WORKERS COMPENSATION, FOUR TIMES DAILY MDD4, 30 DAY(S), 120, REFILLS 2 REFILL ZANAFLEX TABLET, 4 MG, 1 TABLET NEEDED, ORALLY, BEFORE BEDTIME MAY REPEAT IN 4 HRS MDD2, 30 DAY(S), 60, REFILLS 2 REFILL METHADONE HCL TABLET, 10 MG, 1 TABLET, ORALLY, 1 EVERY 6 HRS NEEDED DAILY FOR PAIN MDD4, 30 DAY(S), 120, REFILLS 0 NOTES: FACET JOINT INJECTION MATERIAL WAS PRINTED,FACET JOINT INJECTION: YOUR EXPERIENCE MATERIAL WAS PRINTED. CLINICAL NOTES: WE DISCUSSED SEVERAL ISSUES WITH MR. MEDINA'S PAIN MANAGEMENT CASE. AT THIS TIME THE PATIENT WILL CONTINUE ON THE SAME MEDICATION REGIMEN BEFORE. PATIENT WILL RECEIVE A REFILL OF IBUPROFEN, GABAPENTIN, ZANAFLEX, AND METHADONE. AFTER REVIEWING THE MRI AND EXAMINING THE PATIENT HE IS A GOOD CANDIDATE FOR A BILATERAL T6-T7 AND T7-T8 FACET BLOCK. WE DISCUSSED THE RISK, BENEFITS, AND ALTERNATIVES AND THE PATIENT WOULD LIKE TO PROCEED. PATIENT WILL BE BOOKED PENDING APPROVAL. I DISCUSSED WITH THE PATIENT ABOUT METHADONE, IN THAT I WILL REFILL METHADONE OVER THE PHONE. UTOX DONE ON 07/07/2016 SHOWS CONSISTENT RESULTS WITH WHAT WAS PRESCRIBE. INSTRUCTIONS WERE GIVEN, QUESTIONS WERE ANSWERED, PATIENT REPORTS UNDERSTANDING AND AGREES WITH THE PLAN. I, QUYNH HOLGUIN, DOCUMENTED THE ABOVE INFORMATION ACTING A SCRIBE FOR DR. CAMPBELL. I HAVE REVIEWED THE ABOVE DOCUMENT, WRITTEN BY QUYNH HOLGUIN SCRIBYumiko AND I VERIFY THAT IT IS ACCURATE. PROCEDURES PN WORKMANS' COMP OPINION IN YOUR OPINION, WAS THE INCIDENT THAT THE PATIENT DESCRIBED THE COMPETENT MEDICAL CAUSE OF THIS INJURY/ILLNESS? YES ARE THE PATIENT'S COMPLAINTS CONSISTENT WITH HIS/HER HISTORY OF THE INJURY/ILLNESS? YES IS THE PATIENT'S HISTORY OF THE INJURY/ILLNESS CONSISTENT WITH YOUR OBJECTIVE FINDING? YES WHAT IS THE PERCENTAGE OF TEMPORARY IMPAIRMENT? MARKED = 75% IS THE PATIENT WORKING? NO DOCTOR ON SITE: JENNIFER BACON MD PRE[facility]IC[facility] PAIN CLINIC TEACHING: PROCEDURE TEACHING PRINTED INFORMATION ON FACET BLOCK GIVEN TO AND EXPLAINED TO PATIENT. HE STATES HE HAS HAD THEM BEFORE AND DOESN'T HAVE ANY QUESTIONS ON IT. PRE-PROCEDURE INSTRUCTIONS GIVEN TO AND REVIEWED WITH PATIENT AND HE VERBALIZED UNDERSTANDING.. PROCEDURE CODES FA211 ESTABILISHED PATIENT [facility] FACILITY CHARGE G8730 PAIN ASSESS POS TOOL F/U PLAN DOC G8427 DOC MEDS VERIFIED W/PT OR RE DISPOSITION & COMMUNICATION FOLLOW UP TFBT PENDING APPROVAL ELECTRONICALLY SIGNED BY JENNIFER CAMPBELL MD ON 12/13/2016 AT 05:19 PM EDT DISCLAIMER : THIS IS A VISIT SUMMARY EXTRACTED FROM THE [employer] CHART. IT IS NOT A COPY OF THE [employer] PROGRESS NOTE. VIJI
== END ==
LOC: M PAIN 13:20
PROVIDERS: ATTEND Anesthesiology
DX: Z09 Encounter for follow-up examination after completed treatment for conditions other than malignant neoplasm (principal); G89.29 Other chronic pain; M46.1 Sacroiliitis, not elsewhere classified; M51.16 Intervertebral disc disorders with radiculopathy, lumbar region; M51.17 Intervertebral disc disorders with radiculopathy, lumbosacral region; M47.814 Spondylosis without myelopathy or radiculopathy, thoracic region; J30.89 Other allergic rhinitis; F31.9 Bipolar disorder, unspecified; G47.00 Insomnia, unspecified; E78.2 Mixed hyperlipidemia; F43.10 Post-traumatic stress disorder, unspecified; F41.1 Generalized anxiety disorder; G43.709 Chronic migraine without aura, not intractable, without status migrainosus; E55.9 Vitamin D deficiency, unspecified; D51.9 Vitamin B12 deficiency anemia, unspecified; Z79.82 Long term (current) use of aspirin; Z79.1 Long term (current) use of non-steroidal anti-inflammatories (NSAID); F11.20 Opioid dependence, uncomplicated; Z79.899 Other long term (current) drug therapy

== ENCOUNTER → 2017-01-11 | Outpatient (CLI) | payer OTHER ==
--- NOTE | 2017-01-21 01:28 | ECWPNPC ---
PATIENT NAME: ROGERIO MEDINA : 1965 GENDER: MALE VISIT DATE: 01/11/2017 DISCHARGE DATE: 01/11/17 1401 VISIT LOCKED DATE TIME: PHYSICIAN: JENNIFER CAMPBELL RESOURCE: JENNIFER CAMPBELL REASON FOR APPOINTMENT 1. W/C BACK AND THORACIC PAIN HISTORY OF PRESENT ILLNESS HISTORY OF PRESENT ILLNESS: PAIN THE PATIENT DESCRIBES THE PAIN... 51 YEAR OLD PATIENT WITH HISTORY OF CHRONIC BACK PAIN. PATIENT DESCRIBES THE PAIN ACHING, BURNING, SHARP, STABBING, TENDER, SORE, SHOOTING, IT COMES AND GOES, AND HAVING IT ALL THE TIME WITH A PAIN SCORE OF 4/10 IN THE LOW BACK AND 8/10 IN THE MID BACK ON TODAY'S VISIT. 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 PATIENT WAS INJURED IN A WORK RELATED INJURY ON 09/20/1989 WHEN HE SLIPPED ON [employer] AND FELL DOWN, PATIENT WHEN TO THE ER THAT DAY. MR. MEDINA REPORTS HAVING A THORACIC FACET BLOCK BOOKED FOR 01/21/17. CURRENTLY THE PATIENT IS USING METHADONE, GABAPENTIN, IBUPROFEN, ZANAFLEX, LIDODERM, AND VOLTAREN GEL AND STATES THAT HE NEEDS THESE MEDICATIONS TO STAY MOBILE AND FUNCTIONAL. , PATIENT DENIES UNEXPLAINABLE WEIGHT LOSS, FEVER, CHILLS, NEW CHANGES ON HIS URINARY OR BOWEL CONTROL. FALL RISK SCREENING: SCREENING :NO FALLS IN THE PAST YEAR CURRENT MEDICATIONS TAKING IBUPROFEN 800 MG TABLET 1 TABLET ORALLY WITH FOOD THREE TIMES A DAY TAKING GABAPENTIN 300 MG CAPSULE 1 CAPSULE ORALLY WORKERS COMPENSATION FOUR TIMES DAILY MDD4 TAKING ZANAFLEX 4 MG TABLET 1 TABLET NEEDED ORALLY BEFORE BEDTIME MAY REPEAT IN 4 HRS MDD2 TAKING CYANOCOBALAMIN 1000 MCG TABLET 1 TABLET ORALLY EVERY OTHER DAY FOR B12 DEFICIENCY TAKING EPIPEN 2-PIERCE 0.3 MG/0.3ML DEVICE DIRECTED INJECTION ONCE FOR ALLERGIC REACTION TAKING METRONIDAZOLE 0.75 % CREAM 1 APPLICATION A THIN LAYER TO AFFECTED AREA EXTERNALLY TWICE A DAY FOR ROSACEA TAKING CLINDAMYCIN PHOSPHATE 1 % SOLUTION 1 DROP TO RASH ON CHEST, BACK AND LEGS EXTERNALLY BID PRN TAKING CLOTRIMAZOLE-BETAMETHASONE 1-0.05 % CREAM 1 APPLICATION TO BACK/CHEST/LEGS EXTERNALLY TWICE A DAY PRN FOLLICULITIS TAKING MULTIVITAMINS MVI TABLET 1 TAB(S) ORALLY DAILY FOR GENERAL HEALTH TAKING VITAMIN D 1000 UNIT CAPSULE 1 CAPSULE ORALLY ONCE A DAY TAKING ASPIR-81 81 MG TABLET DELAYED RELEASE 1 TABLET ORALLY ONCE A DAY TAKING ARTIFICIAL TEARS 0.4 % SOLUTION 1 DROP INTO EACH EYE OPHTHALMIC UP TO 6 TIMES DAILY PRN DRY EYES TAKING AZELASTINE HCL 0.05 % SOLUTION 1 DROP INTO AFFECTED EYE OPHTHALMIC TWICE A DAY PRN ALLERGIES TAKING HYDROXYZINE HCL 25MG TABLET 1 TABLET BY MOUTH QID PRN TAKING EVZIO 0.4 MG/0.4ML SOLUTION AUTO-INJECTOR DIRECTED INJECTION FOR EMERGENCY USE ONLY TAKING TESTOSTERONE CYPIONATE 200 MG/ML OIL 1.75 ML INTRAMUSCULAR INJECTED MONTHLY (MDD: 1.75 ML/MONTH) TAKING PRAVASTATIN SODIUM 10 MG TABLET 1 TABLET ORALLY ONCE A DAY TAKING BUPROPION HCL ER (XL) 450 MG TABLET EXTENDED RELEASE 24 HOUR TAKE ONE TABLET BY MOUTH EVERY MORNING ORALLY ONCE A DAY TAKING ZYRTEC 10 MG TABLET 1 TABLET ORALLY ONCE A DAY TAKING LIDODERM 5 % PATCH 3 PATCH TO INTACT SKIN REMOVE AFTER 12 HOURS EXTERNALLY 2 THORAX1 BACK APPLY TO PAINFUL AREA OF BACK ON 12 HRS, OFF 12 HRS TAKING COLACE 100 MG CAPSULE 2 CAPSULES ORALLY FOUR TIMES A DAY MDD8 TAKING VOLTAREN 1 % GEL ONE APPLICATION EXTERNALLY EVERY 6 HOURS NEEDED TO LOW BACK TAKING PRAZOSIN HCL 1 MG CAPSULE 2 CAPSULE ORALLY QHS MDD=2 TAKING ABILIFY 20 MG TABLET 1 TABLET ORALLY ONCE A DAY TAKING SUMATRIPTAN SUCCINATE 100 MG TABLET 1 TABLET NEEDED, REPEAT ONCE AFTER 2 HOURS PRN ORALLY ONCE A DAY MDD=2 MAX 4 MIGRAINES/MONTH TAKING PREVACID 30 MG CAPSULE DELAYED RELEASE 1 CAPSULE BEFORE A MEAL ORALLY DAILY TAKING ADDERALL 15 MG TABLET 1 TAB(S) ORALLY TWICE DAILY MDD=2 TAKING DIAZEPAM 10 MG TABLET 1 TABLET NEEDED ORALLY TWICE DAILY PRN MDD=2 TAKING METHADONE HCL 10 MG TABLET 1 TABLET ORALLY 1 EVERY 6 HRS NEEDED DAILY FOR PAIN MDD4 TAKING SUSTAIN 1 DROP 2-3 TIMES A DAY NEEDED FOR DRY EYES NOT-TAKING MIRTAZAPINE 45 MG TABLET 1 TABLET BEFORE BEDTIME IN THE EVENING ORALLY ONCE A DAY NOT-TAKING DEPAKOTE ER 250 MG TABLET EXTENDED RELEASE 24 HOUR 1 TAB(S) ORALLY DAILY NOT-TAKING ERYTHROMYCIN 2 % PAD 1 PAD TO FACE NEEDED EXTERNALLY TWICE A DAY FOR ROSACEA NOT-TAKING ALBUTEROL SULFATE HFA 108 (90 BASE) MCG/ACT AEROSOL SOLUTION 2 PUFFS INHALATION ONCE DAILY NEEDED, NOTES: NONE RECENTLY MEDICATION LIST REVIEWED AND RECONCILED WITH THE PATIENT PAST MEDICAL HISTORY CHRONIC BACK PAIN H/O T8 FRACTURE AND T6-7 DISC HERNIATION ASTHMA ALLERGIC RHINITIS DEPRESSION/BIPOLAR DISORDER ERECTILE DYSFUNCTION ROSACEA/FOLLICULIITS H/O KIDNEY STONES GASTROPARESIS INSOMNIA LOW TESOSTERONE HERNIATED DISC L3-L5, ALLERGIES ENVIRONMENTAL: ITCHY EYES, WHEEZING, SNEEZING: ALLERGY SURGICAL HISTORY TESTICLE REMOVED 02/2016 FAMILY HISTORY NO FAMILY HISTORY DOCUMENTED. SOCIAL HISTORY GENERAL: PAIN CLINIC PFS, CLERGY, PUBLIC HEALTH REFERRALS CLERGY REFERRAL NEEDED?NO WAS THE PROVIDER NOTIFIED OF ANY PERTINENT INFO?NO PFS REFERRAL NEEDED?NO PUBLIC HEALTH REFERRAL NEEDED?NO PATIENT: ____. HOSPITALIZATION/MAJOR DIAGNOSTIC PROCEDURE ACCIDENTAL OVERDOSE ([facility]LEEPING PILLS) [facility] 2011 REVIEW OF SYSTEMS CONSTITUTIONAL: ANY CHANGE IN YOUR MEDICAL CONDITION? NO . CHILLS NO . FEVER NO . INFECTION: DO YOU HAVE NEW INFECTIONS? NO . DO YOU HAVE HISTORY OF MRSA? NO . MUSCULOSKELETAL: ANY NEW PATTERNS OF PAIN OR NUMBNESS? NO . GASTROENTEROLOGY: ANY NEW CHANGE IN BOWEL CONTROL? NO . GENITOURINARY: ANY NEW CHANGE IN BLADDER CONTROL? NO . IS THERE A CHANCE YOU COULD BE ? NO . HEMATOLOGY/LYMPH: DO YOU TAKE ANY BLOOD THINNERS? (FOR EXAMPLE- COUMADIN, PLAVIX, AGGRENOX, PLATEL, PRADAXA, OR XARELTO) NO . WHEN WAS YOUR LAST DOSE? DATE: TIME: . NEUROLOGY: HAVE YOU FALLEN IN THE PAST 6 MONTHS? NO . ANY NEW EXTREMITY NUMBNESS OR WEAKNESS? NO . CARDIOLOGY: DO YOU HAVE A PACEMAKER OR DEFIBRILLATOR? NO . RESPIRATORY: HAVE YOU BEEN SICK IN THE PAST WEEK? NO . FEVER NO . FLU LIKE SYMPTOMS? NO . COUGH NO . INTEGUMENTARY: DO YOU HAVE ANY RASHES OR OPEN SORES? NO . ALLERGIC/IMMUNO: ARE YOU ALLERGIC TO SHELLFISH OR IV DYE? NO . ANY NEW ALLERGIES? NO . PSYCHIATRIC: DO YOU HAVE THOUGHTS OF HURTING YOURSELF OR SOMEONE ELSE? NO . ARE YOU ABUSED, NEGLECTED, OR IN AN UNSAFE ENVIRONMENT? NO . ENDOCRINOLOGY: ARE YOU DIABETIC? NO . OTHER: DO YOU NEED ANY PRESCRIPTIONS? YES, DOC-Q-LACE, METHADONE, LANSOPRAZOLE . IF YES, PLEASE LIST: ____ . ANY NEW PROBLEMS WITH YOUR MEDICATIONS? NO . WHEN DID YOU LAST EAT? ____ . WHEN DID YOU LAST DRINK? ____ . WHAT DID YOU LAST DRINK? ____ . NAME OF PERSON DRIVING YOU HOME? ____ . DO YOU HAVE ANY OTHER QUESTIONS OR CONCERNS NO . REVIEWED BY: PROVIDER: JENNIFER CAMPBELL MD . VITAL SIGNS WT 180.0 LBS, HT 68 IN, BMI 27.37 INDEX, BP 124/71 MM HG, HR 80 /MIN, RR 16 /MIN, TEMP 98.5 F, OXYGEN SAT % 98%, NA INITIALS TL 1331, REVIEWED BY: CS. EXAMINATION : PATIENT IS ALERT O X 3 AND COOPERATIVE. PATIENT AMBULATES WITH AN ANTALGIC GAIT AND A LIMP ON THE RIGHT LEG. PATIENT HAS TENDERNESS IN THE THORACIC FACET JOINTS. MRI OF THE THORACIC SPINE DONE ON 10/11/2006 SHOWS A STABLE COMPRESSION DEFORMITY OF T8 AND DISC BULGE AT T6-T7. MRI OF THE LUMBAR SPINE DONE ON 12/23/2015 SHOWS A DIFFUSE DISC BULGES AT L3-L4, L4-L5, AND L5-S1 LEVELS WITH MINIMAL THECAL SAC COMPRESSION AT L3-L4 AND L4-L5, THERE IS A GRADE 1 SPONDYLOLISTHESIS OF L5 ON S1, AND THERE IS A COMPRESSION OF THE L5 NERVES IN THE NEURAL FORAMINA. ASSESSMENTS SPONDYLOSIS WITHOUT MYELOPATHY OR RADICULOPATHY, THORACIC REGION - M47.814 (PRIMARY) SACROILIITIS, NOT ELSEWHERE CLASSIFIED - M46.1 MIXED HYPERLIPIDEMIA - E78.2 SPONDYLOSIS WITHOUT MYELOPATHY OR RADICULOPATHY, THORACOLUMBAR REGION - M47.815 TREATMENT SPONDYLOSIS WITHOUT MYELOPATHY OR RADICULOPATHY, THORACIC REGION NOTES: WE DICUSSED SEVERAL ISSUES WITH MR. MEDINA' PAIN MANAGEMENT CASE. PATIENT WILL CONTINUE WITH THE SAME MEDICATION REGIME BEFORE. PATIENT IS USING THE METHADONE FOR THE SOMATIC PAIN, GABAPENTIN FOR THE NEUROPATHIC PAIN, ZANAFLEX FOR THE MUSCLE SPASMS, LIDODERM AND VOLTAREN GEL FOR THE SOMATIC PAIN, AND COLACE FOR THE CHRONIC CONSTIPATION. PATIENT DENIES ABUSE OF ANY MEDICATION, DENIES USE OF ILLEGAL SUBSTANCES, AND STATS THAT HE IS ONLY USING THE MEDICATION FOR PAIN MANAGEMENT. URINE TOXICOLOGY REPORT DONE ON 07/01/16 SHOWS CONSISTENT RESULTS WITH THE PATIENT'S MEDICATION LIST. PATIENT IS BOOKED FOR A THORACIC FACET BLOCK AND WILL RETURN THE CLINIC 3 WEEKS AFTER THE INJECTION. INSTRUCTIONS WERE GIVEN, QUESTIONS WERE ANSWERED, PATIENT REPORTS UNDERSTANDING AND AGREES WITH THE PLAN. I, TIARA SPEAR, DOCUMENTED THE ABOVE INFORMATION ACTING A SCRIBE FOR DR. CAMPBELL. I HAVE REVIEWED THE ABOVE DOCUMENT, WRITTEN BY TIARA RODRIGUEZ AND I VERIFY THAT IT IS ACCURATE. SACROILIITIS, NOT ELSEWHERE CLASSIFIED REFILL IBUPROFEN TABLET, 800 MG, 1 TABLET, ORALLY WITH FOOD, THREE TIMES A DAY, 30 DAY(S), 90 TABLET, REFILLS 1 REFILL COLACE CAPSULE, 100 MG, 2 CAPSULES, ORALLY, FOUR TIMES A DAY MDD8, 30 DAY(S), 240, REFILLS 2 REFILL METHADONE HCL TABLET, 10 MG, 1 TABLET, ORALLY, 1 EVERY 6 HRS NEEDED DAILY FOR PAIN MDD4, 30 DAY(S), 120, REFILLS 0 REFILL PREVACID CAPSULE DELAYED RELEASE, 30 MG, 1 CAPSULE BEFORE A MEAL, ORALLY, DAILY, 30 DAY(S), 30, REFILLS 2 PROCEDURES PN WORKMANS' COMP OPINION IN YOUR OPINION, WAS THE INCIDENT THAT THE PATIENT DESCRIBED THE COMPETENT MEDICAL CAUSE OF THIS INJURY/ILLNESS? YES ARE THE PATIENT'S COMPLAINTS CONSISTENT WITH HIS/HER HISTORY OF THE INJURY/ILLNESS? YES IS THE PATIENT'S HISTORY OF THE INJURY/ILLNESS CONSISTENT WITH YOUR OBJECTIVE FINDING? YES WHAT IS THE PERCENTAGE OF TEMPORARY IMPAIRMENT? MARKED = 75% IS THE PATIENT WORKING? NO DOCTOR ON SITE: JENNIFER BACON MD PROCEDURE CODES FA211 ESTABILISHED PATIENT [facility] FACILITY CHARGE G8427 DOC MEDS VERIFIED W/PT OR RE G8730 PAIN ASSESS POS TOOL F/U PLAN DOC DISPOSITION & COMMUNICATION FOLLOW UP TFBT AFTER APPROVAL ELECTRONICALLY SIGNED BY JENNIFER CAMPBELL MD ON 01/18/2017 AT 07:07 PM EDT DISCLAIMER : THIS IS A VISIT SUMMARY EXTRACTED FROM THE [employer] CHART. IT IS NOT A COPY OF THE [employer] PROGRESS NOTE. VIJI
== END ==
LOC: M PAIN 13:20
PROVIDERS: ATTEND Anesthesiology
DX: G89.29 Other chronic pain (principal); M47.814 Spondylosis without myelopathy or radiculopathy, thoracic region; M46.1 Sacroiliitis, not elsewhere classified; E78.2 Mixed hyperlipidemia; M47.815 Spondylosis without myelopathy or radiculopathy, thoracolumbar region; J45.909 Unspecified asthma, uncomplicated; F31.9 Bipolar disorder, unspecified; G47.00 Insomnia, unspecified; Z79.1 Long term (current) use of non-steroidal anti-inflammatories (NSAID); Z79.82 Long term (current) use of aspirin; F11.20 Opioid dependence, uncomplicated; Z79.899 Other long term (current) drug therapy

== ENCOUNTER → 2017-01-19 | Outpatient (CLI) | payer OTHER ==
[~2017-01-19] MED LIST changes: +BUPIVACAINE HCL 0.25% 30 ML VIAL As Ordered ONE; +ISOVUE-M 300 61% 15ML VIAL (Q9967) As Ordered ONE; +LIDOCAINE 1% SDV INJ 30 ML VIAL As Ordered ONE; +TRIAMCINOLONE ACETONIDE SUSP 40 MG/ML VIAL (J3301) As Ordered ONE
--- NOTE | 2017-01-19 11:46 | REP ---
PARTIAL THORACIC SPINE SERIES: Single view. HISTORY: Thoracic facet block for pain. 18 seconds of fluoroscopy time is reported. FINDINGS: A single fluoroscopically obtained last image hold intraprocedural spot radiograph of the mid thoracic spine documents needle position and contrast injection associated with thoracic spine facet block procedure. Signed by Souleymane Gloria MD 01/19/2017 05:07 P
--- NOTE | 2017-01-31 23:48 | ECWPNPC ---
PATIENT NAME: ROGERIO MEDINA : 1965 GENDER: MALE VISIT DATE: 01/19/2017 DISCHARGE DATE: 01/19/17 1051 VISIT LOCKED DATE TIME: PHYSICIAN: JENNIFER CAMPBELL RESOURCE: JENNIFER CAMPBELL REASON FOR APPOINTMENT 1. W/C TFBT LINDSAY T6-T8 APPORVED HISTORY OF PRESENT ILLNESS HISTORY OF PRESENT ILLNESS: PAIN THE PATIENT DESCRIBES THE PAIN... FALL RISK SCREENING: SCREENING :NO FALLS IN THE PAST YEAR CURRENT MEDICATIONS TAKING IBUPROFEN 800 MG TABLET 1 TABLET ORALLY WITH FOOD THREE TIMES A DAY, NOTES: 01-19-17599 TAKING COLACE 100 MG CAPSULE 2 CAPSULES ORALLY FOUR TIMES A DAY MDD8, NOTES: 01-19-17599 TAKING METHADONE HCL 10 MG TABLET 1 TABLET ORALLY 1 EVERY 6 HRS NEEDED DAILY FOR PAIN MDD4, NOTES: 01-19-17599 TAKING PREVACID 30 MG CAPSULE DELAYED RELEASE 1 CAPSULE BEFORE A MEAL ORALLY DAILY, NOTES: 01-19-17599 TAKING HYDROXYZINE HCL 25MG TABLET 1 TABLET BY MOUTH QID PRN, NOTES: 01-11-17 09 TAKING AZELASTINE HCL 0.05 % SOLUTION 1 DROP INTO AFFECTED EYE OPHTHALMIC TWICE A DAY PRN ALLERGIES, NOTES: 01-18-17 1500 TAKING GABAPENTIN 300 MG CAPSULE 1 CAPSULE ORALLY WORKERS COMPENSATION FOUR TIMES DAILY MDD4, NOTES: 01-19-17599 TAKING ZANAFLEX 4 MG TABLET 1 TABLET NEEDED ORALLY BEFORE BEDTIME MAY REPEAT IN 4 HRS MDD2, NOTES: 01-18-17 2200 TAKING CYANOCOBALAMIN 1000 MCG TABLET 1 TABLET ORALLY EVERY OTHER DAY FOR B12 DEFICIENCY, NOTES: 01-18-17 08 TAKING EPIPEN 2-PIERCE 0.3 MG/0.3ML DEVICE DIRECTED INJECTION ONCE FOR ALLERGIC REACTION TAKING METRONIDAZOLE 0.75 % CREAM 1 APPLICATION A THIN LAYER TO AFFECTED AREA EXTERNALLY TWICE A DAY FOR ROSACEA, NOTES: 01-06-17 TAKING CLINDAMYCIN PHOSPHATE 1 % SOLUTION 1 DROP TO RASH ON CHEST, BACK AND LEGS EXTERNALLY BID PRN, NOTES: 01-06-17 TAKING CLOTRIMAZOLE-BETAMETHASONE 1-0.05 % CREAM 1 APPLICATION TO BACK/CHEST/LEGS EXTERNALLY TWICE A DAY PRN FOLLICULITIS, NOTES: 01-06-17 TAKING MULTIVITAMINS MVI TABLET 1 TAB(S) ORALLY DAILY FOR GENERAL HEALTH, NOTES: 01-19-17599 TAKING VITAMIN D 1000 UNIT CAPSULE 1 CAPSULE ORALLY ONCE A DAY, NOTES: 01-19-17599 TAKING ASPIR-81 81 MG TABLET DELAYED RELEASE 1 TABLET ORALLY ONCE A DAY, NOTES: 01-18-172199 TAKING ARTIFICIAL TEARS 0.4 % SOLUTION 1 DROP INTO EACH EYE OPHTHALMIC UP TO 6 TIMES DAILY PRN DRY EYES, NOTES: 01-18-171499 TAKING EVZIO 0.4 MG/0.4ML SOLUTION AUTO-INJECTOR DIRECTED INJECTION FOR EMERGENCY USE ONLY, NOTES: NEVER TAKING TESTOSTERONE CYPIONATE 200 MG/ML OIL 1.75 ML INTRAMUSCULAR INJECTED MONTHLY (MDD: 1.75 ML/MONTH), NOTES: TAKING PRAVASTATIN SODIUM 10 MG TABLET 1 TABLET ORALLY ONCE A DAY, NOTES: 01-18-172199 TAKING BUPROPION HCL ER (XL) 450 MG TABLET EXTENDED RELEASE 24 HOUR TAKE ONE TABLET BY MOUTH EVERY MORNING ORALLY ONCE A DAY, NOTES: 01-19-17599 TAKING ZYRTEC 10 MG TABLET 1 TABLET ORALLY ONCE A DAY, NOTES: 01-19-17599 TAKING LIDODERM 5 % PATCH 3 PATCH TO INTACT SKIN REMOVE AFTER 12 HOURS EXTERNALLY 2 THORAX1 BACK APPLY TO PAINFUL AREA OF BACK ON 12 HRS, OFF 12 HRS, NOTES: 01-18-17599 TAKING VOLTAREN 1 % GEL ONE APPLICATION EXTERNALLY EVERY 6 HOURS NEEDED TO LOW BACK, NOTES: 01-19-17599 TAKING PRAZOSIN HCL 1 MG CAPSULE 2 CAPSULE ORALLY QHS MDD=2, NOTES: 01-18-172199 TAKING ABILIFY 20 MG TABLET 1 TABLET ORALLY ONCE A DAY, NOTES: 01-18-172199 TAKING SUMATRIPTAN SUCCINATE 100 MG TABLET 1 TABLET NEEDED, REPEAT ONCE AFTER 2 HOURS PRN ORALLY ONCE A DAY MDD=2 MAX 4 MIGRAINES/MONTH, NOTES: 01-06-172199 TAKING ADDERALL 15 MG TABLET 1 TAB(S) ORALLY TWICE DAILY MDD=2, NOTES: 01-19-17599 TAKING DIAZEPAM 10 MG TABLET 1 TABLET NEEDED ORALLY TWICE DAILY PRN MDD=2, NOTES: 01-19-17599 TAKING SUSTAIN 1 DROP 2-3 TIMES A DAY NEEDED FOR DRY EYES, NOTES: 01-18-172199 NOT-TAKING MIRTAZAPINE 45 MG TABLET 1 TABLET BEFORE BEDTIME IN THE EVENING ORALLY ONCE A DAY NOT-TAKING DEPAKOTE ER 250 MG TABLET EXTENDED RELEASE 24 HOUR 1 TAB(S) ORALLY DAILY NOT-TAKING ERYTHROMYCIN 2 % PAD 1 PAD TO FACE NEEDED EXTERNALLY TWICE A DAY FOR ROSACEA NOT-TAKING ALBUTEROL SULFATE HFA 108 (90 BASE) MCG/ACT AEROSOL SOLUTION 2 PUFFS INHALATION ONCE DAILY NEEDED, NOTES: NONE RECENTLY MEDICATION LIST REVIEWED AND RECONCILED WITH THE PATIENT PAST MEDICAL HISTORY CHRONIC BACK PAIN H/O T8 FRACTURE AND T6-7 DISC HERNIATION ASTHMA ALLERGIC RHINITIS DEPRESSION/BIPOLAR DISORDER ERECTILE DYSFUNCTION ROSACEA/FOLLICULIITS H/O KIDNEY STONES GASTROPARESIS INSOMNIA LOW TESOSTERONE HERNIATED DISC L3-L5, ALLERGIES ENVIRONMENTAL: ITCHY EYES, WHEEZING, SNEEZING: ALLERGY SURGICAL HISTORY TESTICLE REMOVED 02/2016 HOSPITALIZATION/MAJOR DIAGNOSTIC PROCEDURE ACCIDENTAL OVERDOSE (SLEEPING PILLS) [place] 11/2010 BIPOLAR DISORDER ([facility]) 2011 REVIEW OF SYSTEMS CONSTITUTIONAL: ANY CHANGE IN YOUR MEDICAL CONDITION? NO . CHILLS NO . FEVER NO . INFECTION: DO YOU HAVE NEW INFECTIONS? NO . DO YOU HAVE HISTORY OF MRSA? NO . MUSCULOSKELETAL: ANY NEW PATTERNS OF PAIN OR NUMBNESS? NO . GASTROENTEROLOGY: ANY NEW CHANGE IN BOWEL CONTROL? NO . GENITOURINARY: ANY NEW CHANGE IN BLADDER CONTROL? NO . IS THERE A CHANCE YOU COULD BE ? NO . HEMATOLOGY/LYMPH: DO YOU TAKE ANY BLOOD THINNERS? (FOR EXAMPLE- COUMADIN, PLAVIX, AGGRENOX, PLATEL, PRADAXA, OR XARELTO) NO . WHEN WAS YOUR LAST DOSE? DATE: TIME: . NEUROLOGY: HAVE YOU FALLEN IN THE PAST 6 MONTHS? NO . ANY NEW EXTREMITY NUMBNESS OR WEAKNESS? NO . CARDIOLOGY: DO YOU HAVE A PACEMAKER OR DEFIBRILLATOR? NO . RESPIRATORY: HAVE YOU BEEN SICK IN THE PAST WEEK? NO . FEVER NO . FLU LIKE SYMPTOMS? NO . COUGH NO . INTEGUMENTARY: DO YOU HAVE ANY RASHES OR OPEN SORES? NO . ALLERGIC/IMMUNO: ARE YOU ALLERGIC TO SHELLFISH OR IV DYE? NO . ANY NEW ALLERGIES? NO . PSYCHIATRIC: DO YOU HAVE THOUGHTS OF HURTING YOURSELF OR SOMEONE ELSE? NO . ARE YOU ABUSED, NEGLECTED, OR IN AN UNSAFE ENVIRONMENT? NO . ENDOCRINOLOGY: ARE YOU DIABETIC? NO . OTHER: DO YOU NEED ANY PRESCRIPTIONS? NO . IF YES, PLEASE LIST: ____ . ANY NEW PROBLEMS WITH YOUR MEDICATIONS? NO . WHEN DID YOU LAST EAT? ____2300 LAST NIGHT . WHEN DID YOU LAST DRINK? ____0600 . WHAT DID YOU LAST DRINK? ____COFFEE BLACK . NAME OF PERSON DRIVING YOU HOME? ____TERRI MEDINA . DO YOU HAVE ANY OTHER QUESTIONS OR CONCERNS NO . REVIEWED BY: PROVIDER: . VITAL SIGNS WT 180 LBS, HT 68 IN, BMI 27.37 INDEX, BP 110/58 MM HG, HR 75 /MIN, RR 16 /MIN, TEMP 98.9 F, OXYGEN SAT % 95%, SAFE IN ENV? (Y/N) YES, NA INITIALS SC 08:53, REVIEWED BY: KG. 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 JENNIFER CAMPBELL JEWEL CORNER BRUSHING MACHINE OPERATOR NONE ANESTHESIA LOCAL PRE PROCEDURE NOTE THE PATIENT WITH HISTORY OF CHRONIC THORACIC PAIN. I EVALUATED THE PATIENT AND REVIEWED THE CHART. I WENT OVER THE RISKS, ALTERNATIVES, AND BENEFITS ASSOCIATED WITH THIS PROCEDURE. THE PATIENT WOULD LIKE TO PROCEED AND GAVE CONSENT TO PERFORM THE PROCEDURE. THE PATIENT DENIES UNEXPLAINABLE WEIGHT LOSS, FEVER, CHILLS, OR NEW CHANGES IN URINARY OR BOWEL CONTROL DESCRIPTION OF PROCEDURE THE PATIENT WAS BROUGHT TO THE PROCEDURE ROOM AND PLACED IN THE PRONE POSITION. THE THORACIC AREA WAS CLEANED WITH CHLORAPREP SOLUTION AND DRAPED ASEPTICALLY. THE PROCEDURE WAS DONE UNDER STERILE CONDITIONS. I CHECKED LATERALITY AND THE LEVEL WHERE THE PROCEDURE WAS GOING TO BE PERFORMED WITH THE PATIENT AND THE SUPPORTING STAFF AT THE MOMENT OF THE TIME OUT IN THE PROCEDURE ROOM. UNDER FLUOROSCOPIC GUIDANCE, THE TARGET POINT WAS SELECTED AT THE RIGHT AND LEFT T7-T8 AND RIGHT AND LEFT T8-T9 THORACIC FACET. TARGET POINT WAS SELECTED AFTER LATERAL ROTATION AND TILT OF THE MAGNIFIER OF THE C-ARM. LIDOCAINE 0.5% WAS USED TO NUMB THE SKIN AND THE SUBCUTANEOUS TISSUE BELOW IT. SPINAL NEEDLES, 22-GAUGE, WERE ADVANCED UNDER FLUOROSCOPIC GUIDANCE AND FOLLOWING PATIENT FEEDBACK UNTIL THE TARGETS WERE TOUCHED. THE POSITION OF THE NEEDLES WAS VERIFIED WITH MULTIPLE X-RAY VIEWS. AFTER PROPER POSITION OF THE NEEDLES WAS ACHIEVED, ISOVUE-M DYE 30% 0.1 ML WAS INJECTED SHOWING ADEQUATE SPREAD OF THE DYE. THEN A SOLUTION OF 0.9 ML OF BUPIVACAINE 0.125% OF KENALOG 10 MG WAS INJECTED AT EACH SITE. THERE WAS NO EVIDENCE OF BLOOD, PARESTHESIA OR CEREBROSPINAL FLUID DURING THE PROCEDURE. THE PATIENT WAS SENT TO THE RECOVERY ROOM. THE PATIENT WAS MOVING THE EXTREMITIES AND DOING WELL. THERE WAS NO COMPLICATION DURING THE PROCEDURE. FLUOROSCOPY TIME WAS 18 SECONDS POST PROCEDURE NOTE THE PATIENT WILL BE SEEN IN A FOLLOW UP IN THE NEXT FEW WEEKS. INSTRUCTIONS WERE GIVEN, QUESTIONS WERE ANSWERED, AND THE PATIENT EXPRESSED UNDERSTANDING AND AGREED WITH THE PLAN. I, TIARA SPEAR, DOCUMENTED THE ABOVE INFORMATION ACTING A SCRIBE FOR DR. CAMPBELL. I HAVE REVIEWED THE ABOVE DOCUMENT, WRITTEN BY TIARA LOERAIBYumiko AND I VERIFY THAT IT IS ACCURATE PN WORKMANS' COMP OPINION IN YOUR OPINION, WAS THE INCIDENT THAT THE PATIENT DESCRIBED THE COMPETENT MEDICAL CAUSE OF THIS INJURY/ILLNESS? YES ARE THE PATIENT'S COMPLAINTS CONSISTENT WITH HIS/HER HISTORY OF THE INJURY/ILLNESS? YES IS THE PATIENT'S HISTORY OF THE INJURY/ILLNESS CONSISTENT WITH YOUR OBJECTIVE FINDING? YES WHAT IS THE PERCENTAGE OF TEMPORARY IMPAIRMENT? MARKED = 75% IS THE PATIENT WORKING? NO DOCTOR ON SITE: JENNIFER BACON MD DIAGNOSTIC IMAGING [facility] FACET BLOCK (PAIN)[id number] PROCEDURE CODES 07900 INJ PARAVERT F JNT C/T 1 LEV 52831 INJ PARAVERT F JNT C/T 2 LEV 6045F RADXPS IN END [id number] PXD DISPOSITION & COMMUNICATION FOLLOW UP 3 WEEKS ELECTRONICALLY SIGNED BY JENNIFER CAMPBELL MD ON 01/31/2017 AT 05:43 PM EDT DISCLAIMER : THIS IS A VISIT SUMMARY EXTRACTED FROM THE [employer] CHART. IT IS NOT A COPY OF THE [employer] PROGRESS NOTE. MTDD
== END ==
LOC: M PAIN 08:40
PROVIDERS: ATTEND Anesthesiology
DX: M47.814 Spondylosis without myelopathy or radiculopathy, thoracic region (principal); G89.29 Other chronic pain; J45.909 Unspecified asthma, uncomplicated; F31.9 Bipolar disorder, unspecified; G47.00 Insomnia, unspecified; E78.2 Mixed hyperlipidemia; F43.10 Post-traumatic stress disorder, unspecified; F60.9 Personality disorder, unspecified; F41.1 Generalized anxiety disorder; G43.709 Chronic migraine without aura, not intractable, without status migrainosus; E55.9 Vitamin D deficiency, unspecified; E53.8 Deficiency of other specified B group vitamins; Z79.1 Long term (current) use of non-steroidal anti-inflammatories (NSAID); F11.20 Opioid dependence, uncomplicated; Z79.82 Long term (current) use of aspirin; Z79.899 Other long term (current) drug therapy
CPT/HCPCS: 64490; 64491; J3301; Q9967

== ENCOUNTER → 2017-02-10 | Outpatient (REF) | payer OTHER ==
[~2017-02-10] MED LIST changes: +ABIL10TA9 PO; +ABIL1TAB11 PO; -ABIL1TAB5 PO; -ABIL5TAB5 PO; -ADDE10CA PO; +ADDE10CA3 PO; +ADDE1TAB14 PO; -ADDE5TAB5 PO; -BUPIVACAINE HCL 0.25% 30 ML VIAL As Ordered ONE; -ISOVUE-M 300 61% 15ML VIAL (Q9967) As Ordered ONE; -LIDOCAINE 1% SDV INJ 30 ML VIAL As Ordered ONE; -TRIAMCINOLONE ACETONIDE SUSP 40 MG/ML VIAL (J3301) As Ordered ONE; -VITA100037 PO; +VITA100067 PO
[2017-02-10 18:41] LABS: VITAMIN B12 LEVEL 1096 PG/ML (247-911)
[2017-02-10 18:43] LABS: ALBUMIN 3.8 GM/DL (3.2-5.2); ALBUMIN/GLOBULIN RATIO 1.36 (1.00-1.93); ALKALINE PHOSPHATASE 42 U/L (45-117); ALT/SGPT 30 U/L (12-78); ANION GAP 4 MEQ/L (8-16); AST/SGOT 22 U/L (15-37); BILIRUBIN,TOTAL 0.2 MG/DL (0.2-1.0); BLOOD UREA NITROGEN 27 MG/DL (7-18); CALCIUM LEVEL 8.7 MG/DL (8.5-10.1); CARBON DIOXIDE LEVEL 32 MEQ/L (21-32); CHLORIDE LEVEL 107 MEQ/L (98-107); CHOLESTEROL LEVEL 154 MG/DL (<200); CREATININE FOR GFR 1.16 MG/DL (0.70-1.30); GLOMERULAR FILTRATION RATE > 60.0 (>60); GLUCOSE, FASTING 80 MG/DL (70-105); POTASSIUM SERUM 4.4 MEQ/L (3.5-5.1); SODIUM LEVEL 143 MEQ/L (136-145); TOTAL PROTEIN 6.6 GM/DL (6.4-8.2); TRIGLYCERIDES LEVEL 64 MG/DL (<150)
[2017-02-10 19:46] LABS: MEAN CORPUSCULAR HEMOGLOBIN 32.2 pg (27.0-33.0); MEAN CORPUSCULAR HGB CONC 33.5 g/dl (32.0-36.5); RED CELL DISTRIBUTION WIDTH 12.2 % (11.5-14.5); WHITE BLOOD COUNT 5.3 K/mm3 (4.0-10.0)
== END ==
LOC: M SFHCLERA 10:28
PROVIDERS: ATTEND Physician Assistant
DX: F31.9 Bipolar disorder, unspecified (principal); E29.1 Testicular hypofunction; E55.9 Vitamin D deficiency, unspecified; E53.8 Deficiency of other specified B group vitamins

== ENCOUNTER → 2017-02-10 | Outpatient (CLI) | payer OTHER ==
[~2017-02-10] MED LIST changes: -ABIL10TA9 PO; -ABIL1TAB11 PO; +ABIL1TAB5 PO; +ABIL5TAB5 PO; +ADDE10CA PO; -ADDE10CA3 PO; -ADDE1TAB14 PO; +ADDE5TAB5 PO; +VITA100037 PO; -VITA100067 PO
--- NOTE | 2017-02-11 02:48 | REP ---
Clinical: Pain. Osteoarthritis. Comparison: 12/19/2009 Technique: AP, lateral, bilateral oblique and sunrise views. Findings: The osseous structures and joint spaces are intact and age appropriate. No overt, significant osteoarthritic degenerative changes are appreciated. There is no evidence for acute fracture or dislocation. No joint effusion is appreciated. Surrounding soft tissues are unremarkable. No subcutaneous emphysema or radiodense foreign body. Impression: Age appropriate bilateral knee radiograph series. Signed by Oswald Pérez MD 02/11/2017 02:40 A
--- NOTE | 2017-02-11 02:50 | REP ---
Clinical: Osteoarthritis. Pain. Technique: AP weightbearing view of the right and left knee. Comparison: 02/10/2017. Findings: Minimal bilateral medial joint space narrowing is suggested when compared to supine AP views of the knees. Impression: Minimal medial joint space narrowing noted bilaterally. Signed by Oswald Pérez MD 02/11/2017 02:42 A
== END ==
LOC: M LRY 10:32
PROVIDERS: ATTEND Physician Assistant
DX: M17.0 Bilateral primary osteoarthritis of knee (principal)

== ENCOUNTER → 2017-03-11 | Outpatient (CLI) | payer OTHER ==
[~2017-03-11] MED LIST changes: +ABIL10TA9 PO; +ABIL1TAB11 PO; -ABIL1TAB5 PO; -ABIL5TAB5 PO; -ADDE10CA PO; +ADDE10CA3 PO; +ADDE1TAB14 PO; -ADDE5TAB5 PO; -VITA100037 PO; +VITA100067 PO
--- NOTE | 2017-03-24 00:25 | ECWPNPC ---
PATIENT NAME: ROGERIO MEDINA : 1965 GENDER: MALE VISIT DATE: 03/11/2017 DISCHARGE DATE: 03/11/17 1558 VISIT LOCKED DATE TIME: PHYSICIAN: JENNIFER CAMPBELL RESOURCE: JENNIFER CAMPBELL REASON FOR APPOINTMENT 1. W/C LOW BACK/THORACIC PAIN HISTORY OF PRESENT ILLNESS HISTORY OF PRESENT ILLNESS: PAIN THE PATIENT DESCRIBES THE PAIN... 51 YEAR OLD PATIENT WITH HISTORY OF CHRONIC BACK PAIN. PATIENT DESCRIBES THE PAIN ACHING, BURNING, SHARP, STABBING, TENDER, SORE, SHOOTING, IT COMES AND GOES, AND HAVING IT ALL THE TIME WITH A PAIN SCORE OF 8/10 IN THE LOW BACK AND 1/10 IN THE MID BACK ON TODAY'S VISIT. 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 PATIENT WAS INJURED IN A WORK RELATED INJURY ON 09/20/1989 WHEN HE SLIPPED ON [employer] AND FELL DOWN, PATIENT WHEN TO THE ER THAT DAY. PATIENT RECEIVED A THORACIC FACET BLOCK ON 01/19/17 AND STATES THAT HE IS DOING VERY WELL FROM THE INJECTION. PATIENT STATES HE HAS HAD OVER 50% RELIEF FROM THE PAIN AND INCREASED MOBILITY AND INJECTION FOR OVER 4 WEEKS. CURRENTLY THE PATIENT IS USING METHADONE, GABAPENTIN, IBUPROFEN, ZANAFLEX, LIDODERM, AND VOLTAREN GEL AND STATES THAT HE NEEDS THESE MEDICATIONS TO STAY MOBILE AND FUNCTIONAL. , PATIENT DENIES UNEXPLAINABLE WEIGHT LOSS, FEVER, CHILLS, NEW CHANGES ON HIS URINARY OR BOWEL CONTROL. FALL RISK SCREENING: SCREENING :NO FALLS IN THE PAST YEAR CURRENT MEDICATIONS TAKING IBUPROFEN 800 MG TABLET 1 TABLET ORALLY WITH FOOD THREE TIMES A DAY TAKING COLACE 100 MG CAPSULE 2 CAPSULES ORALLY FOUR TIMES A DAY MDD8 TAKING PREVACID 30 MG CAPSULE DELAYED RELEASE 1 CAPSULE BEFORE A MEAL ORALLY DAILY TAKING HYDROXYZINE HCL 25MG TABLET 1 TABLET BY MOUTH QID PRN TAKING AZELASTINE HCL 0.05 % SOLUTION 1 DROP INTO AFFECTED EYE OPHTHALMIC TWICE A DAY PRN ALLERGIES TAKING ZANAFLEX 4 MG TABLET 1 TABLET NEEDED ORALLY BEFORE BEDTIME MAY REPEAT IN 4 HRS MDD2 TAKING CYANOCOBALAMIN 1000 MCG TABLET 1 TABLET ORALLY EVERY OTHER DAY FOR B12 DEFICIENCY TAKING METRONIDAZOLE 0.75 % CREAM 1 APPLICATION A THIN LAYER TO AFFECTED AREA EXTERNALLY TWICE A DAY FOR ROSACEA TAKING CLINDAMYCIN PHOSPHATE 1 % SOLUTION 1 DROP TO RASH ON CHEST, BACK AND LEGS EXTERNALLY BID PRN TAKING CLOTRIMAZOLE-BETAMETHASONE 1-0.05 % CREAM 1 APPLICATION TO BACK/CHEST/LEGS EXTERNALLY TWICE A DAY PRN FOLLICULITIS TAKING MULTIVITAMINS MVI TABLET 1 TAB(S) ORALLY DAILY FOR GENERAL HEALTH TAKING VITAMIN D 1000 UNIT CAPSULE 1 CAPSULE ORALLY ONCE A DAY TAKING ASPIR-81 81 MG TABLET DELAYED RELEASE 1 TABLET ORALLY ONCE A DAY TAKING EVZIO 0.4 MG/0.4ML SOLUTION AUTO-INJECTOR DIRECTED INJECTION FOR EMERGENCY USE ONLY TAKING PRAVASTATIN SODIUM 10 MG TABLET 1 TABLET ORALLY ONCE A DAY TAKING BUPROPION HCL ER (XL) 450 MG TABLET EXTENDED RELEASE 24 HOUR TAKE ONE TABLET BY MOUTH EVERY MORNING ORALLY ONCE A DAY TAKING ZYRTEC 10 MG TABLET 1 TABLET ORALLY ONCE A DAY TAKING LIDODERM 5 % PATCH 3 PATCH TO INTACT SKIN REMOVE AFTER 12 HOURS EXTERNALLY 2 THORAX1 BACK APPLY TO PAINFUL AREA OF BACK ON 12 HRS, OFF 12 HRS TAKING VOLTAREN 1 % GEL ONE APPLICATION EXTERNALLY EVERY 6 HOURS NEEDED TO LOW BACK TAKING PRAZOSIN HCL 1 MG CAPSULE 2 CAPSULE ORALLY QHS MDD=2 TAKING ABILIFY 20 MG TABLET 1 TABLET ORALLY ONCE A DAY TAKING SUMATRIPTAN SUCCINATE 100 MG TABLET 1 TABLET NEEDED, REPEAT ONCE AFTER 2 HOURS PRN ORALLY ONCE A DAY MDD=2 MAX 4 MIGRAINES/MONTH TAKING ADDERALL 15 MG TABLET 1 TAB(S) ORALLY TWICE DAILY MDD=2 TAKING DIAZEPAM 10 MG TABLET 1 TABLET NEEDED ORALLY TWICE DAILY PRN MDD=2 TAKING ADDERALL XR 15 MG CAPSULE EXTENDED RELEASE 24 HOUR (SCHEDULE II DRUG) TAKE ONE CAPSULE BY MOUTH EVERY MORNING FOR ADHD MAXIMUM DAILY DOSE 1 CAPSULE ORAL TAKING SYSTANE ULTRA 0.4-0.3 % SOLUTION INSTILL 1 DROP IN EACH EYE FOUR TIMES A DAY OR NEEDED OPHTHALMIC TAKING EPIPEN 2-PIERCE 0.3 MG/0.3ML DEVICE DIRECTED INJECTION ONCE FOR ALLERGIC REACTION TAKING TESTOSTERONE CYPIONATE 200 MG/ML SOLUTION 1.75 ML INTRAMUSCULAR INJECTED MONTHLY (MDD: 1.75 ML/MONTH) TAKING METHADONE HCL 10 MG TABLET 1 TABLET ORALLY 1 EVERY 6 HRS NEEDED DAILY FOR PAIN MDD4 TAKING GABAPENTIN 300 MG CAPSULE 1 CAPSULE ORALLY WORKERS COMPENSATION FOUR TIMES DAILY MDD4 TAKING ADDERALL 15 MG TABLET 1 TABLET AT LUNCHTIME ORALLY ONCE A DAY NOT-TAKING ARTIFICIAL TEARS 0.4 % SOLUTION 1 DROP INTO EACH EYE OPHTHALMIC UP TO 6 TIMES DAILY PRN DRY EYES, NOTES: 01-18-171499 NOT-TAKING MIRTAZAPINE 45 MG TABLET 1 TABLET BEFORE BEDTIME IN THE EVENING ORALLY ONCE A DAY NOT-TAKING DEPAKOTE ER 250 MG TABLET EXTENDED RELEASE 24 HOUR 1 TAB(S) ORALLY DAILY NOT-TAKING ERYTHROMYCIN 2 % PAD 1 PAD TO FACE NEEDED EXTERNALLY TWICE A DAY FOR ROSACEA NOT-TAKING ALBUTEROL SULFATE HFA 108 (90 BASE) MCG/ACT AEROSOL SOLUTION 2 PUFFS INHALATION ONCE DAILY NEEDED, NOTES: NONE RECENTLY MEDICATION LIST REVIEWED AND RECONCILED WITH THE PATIENT PAST MEDICAL HISTORY CHRONIC BACK PAIN H/O T8 FRACTURE AND T6-7 DISC HERNIATION ASTHMA ALLERGIC RHINITIS DEPRESSION/BIPOLAR DISORDER ERECTILE DYSFUNCTION ROSACEA/FOLLICULIITS H/O KIDNEY STONES GASTROPARESIS INSOMNIA LOW TESOSTERONE HERNIATED DISC L3-L5, ALLERGIES ENVIRONMENTAL: ITCHY EYES, WHEEZING, SNEEZING: ALLERGY SURGICAL HISTORY TESTICLE REMOVED 02/2016 SOCIAL HISTORY GENERAL: TOBACCO USE ARE YOU A:NONSMOKER LUNG CANCER SCREENING SMOKING STATUS:NON SMOKER BMI CARE GOAL FOLLOW-UP ABOVE NORMAL BMI FOLLOW-UPDIETARY MANAGEMENT EDUCATION, GUIDANCE, AND COUNSELING, DIETARY NEEDS EDUCATION MU-ISM [id number] NONE LEARNING BARRIERS / SPECIAL NEEDS BARRIERS TO LEARNING?NO HEARING IMPAIRED?NO VISION IMPAIRED?YES :CORRECTIVE LENSES COGNITIVELY IMPAIRED?NO READINESS TO LEARN?YES LEARNING PREFERENCES?NO LEARNING CAPABILITIES PRESENT?YES EMOTIONAL BARRIERS?NO SPECIAL DEVICES?NO ELECTRICIAN CONTROL EQUIPMENT NEEDED?NO PAIN CLINIC PFS, CLERGY, PUBLIC HEALTH REFERRALS PFS REFERRAL NEEDED?NO CLERGY REFERRAL NEEDED?NO PUBLIC HEALTH REFERRAL NEEDED?NO WAS THE PROVIDER NOTIFIED OF ANY PERTINENT INFO?NO HAS THE PATIENT BEEN EDUCATED REGARDING HIS/HER PLAN OF CARE?YES PLEASE DOCUMENT ANY ADDTIONAL DETAILS.PLEASE FREE TEXT IN THE NOTES SECTION. HAS THE PATIENT BEEN EDUCATED REGARDING PAIN, THE RISK FOR PAIN, THE IMPORTANCE OF EFFECTIVE PAIN MANAGEMENT, AND THE PAIN ASSESSMENT PROCESS?YES PATIENT: ____. ADVANCE DIRECTIVES HEALTH CARE PROXY?YES NAME OF HCP NICK MEDINA CONTACT # FOR HCP [phone] DO YOU HAVE A COPY WITH YOU?NO DO YOU HAVE A DNR?NO WOULD YOU LIKE MORE INFORMATION?NO LIVING WILL?NO WOULD YOU LIKE MORE INFORMATION?NO POWER OF COAL EQUIPMENT OPERATOR?NO HOSPITALIZATION/MAJOR DIAGNOSTIC PROCEDURE ACCIDENTAL OVERDOSE (SLEEPING PILLS) HASEEB 11/2010 BIPOLAR DISORDER ([facility]) 2012 REVIEW OF SYSTEMS REVIEWED BY: PROVIDER: JENNIFER CAMPBELL MD . CONSTITUTIONAL: ANY CHANGE IN YOUR MEDICAL CONDITION? NO . CHILLS NO . FEVER NO . INFECTION: DO YOU HAVE NEW INFECTIONS? NO . DO YOU HAVE HISTORY OF MRSA? NO . MUSCULOSKELETAL: ANY NEW PATTERNS OF PAIN OR NUMBNESS? YES, INTERMITTENT SHARP PAIN IN LOW BACK ESPECIALLY WHEN BENDING FORWARD FOR PAST MONTH. STATES LEGS &QUOT;GIVE OUT&QUOT; AND HAS ALMOST FALLEN. . GASTROENTEROLOGY: ANY NEW CHANGE IN BOWEL CONTROL? NO . GENITOURINARY: ANY NEW CHANGE IN BLADDER CONTROL? NO . IS THERE A CHANCE YOU COULD BE ? NO . HEMATOLOGY/LYMPH: DO YOU TAKE ANY BLOOD THINNERS? (FOR EXAMPLE- COUMADIN, PLAVIX, AGGRENOX, PLATEL, PRADAXA, OR XARELTO) NO . WHEN WAS YOUR LAST DOSE? DATE: TIME: . NEUROLOGY: HAVE YOU FALLEN IN THE PAST 6 MONTHS? NO . ANY NEW EXTREMITY NUMBNESS OR WEAKNESS? NO . CARDIOLOGY: DO YOU HAVE A PACEMAKER OR DEFIBRILLATOR? NO . RESPIRATORY: HAVE YOU BEEN SICK IN THE PAST WEEK? NO . FEVER NO . FLU LIKE SYMPTOMS? NO . COUGH NO . INTEGUMENTARY: DO YOU HAVE ANY RASHES OR OPEN SORES? NO . ALLERGIC/IMMUNO: ARE YOU ALLERGIC TO SHELLFISH OR IV DYE? NO . ANY NEW ALLERGIES? NO . PSYCHIATRIC: DO YOU HAVE THOUGHTS OF HURTING YOURSELF OR SOMEONE ELSE? NO . ARE YOU ABUSED, NEGLECTED, OR IN AN UNSAFE ENVIRONMENT? NO . ENDOCRINOLOGY: ARE YOU DIABETIC? NO . OTHER: DO YOU NEED ANY PRESCRIPTIONS? YES . IF YES, PLEASE LIST: METHADONE . ANY NEW PROBLEMS WITH YOUR MEDICATIONS? NO . WHEN DID YOU LAST EAT? ____ . WHEN DID YOU LAST DRINK? ____ . WHAT DID YOU LAST DRINK? ____ . NAME OF PERSON DRIVING YOU HOME? ____ . DO YOU HAVE ANY OTHER QUESTIONS OR CONCERNS NO . VITAL SIGNS WT 170 LBS, HT 68 IN, BMI 25.85 INDEX, BP 125/68 MM HG, HR 81 /MIN, RR 16 /MIN, TEMP 98.6 F, OXYGEN SAT % 96%, NA INITIALS SC 14:47, REVIEWED BY: LS. EXAMINATION : PATIENT IS ALERT O X 3 AND COOPERATIVE. PATIENT AMBULATES WITH AN ANTALGIC GAIT AND A LIMP ON THE RIGHT LEG. PATIENT HAS TENDERNESS IN THE THORACIC FACET JOINTS. MRI OF THE THORACIC SPINE DONE ON 10/11/2006 SHOWS A STABLE COMPRESSION DEFORMITY OF T8 AND DISC BULGE AT T6-T7. MRI OF THE LUMBAR SPINE DONE ON 12/23/2015 SHOWS A DIFFUSE DISC BULGES AT L3-L4, L4-L5, AND L5-S1 LEVELS WITH MINIMAL THECAL SAC COMPRESSION AT L3-L4 AND L4-L5, THERE IS A GRADE 1 SPONDYLOLISTHESIS OF L5 ON S1, AND THERE IS A COMPRESSION OF THE L5 NERVES IN THE NEURAL FORAMINA. PATIENT POSITIVE FOR PAIN WITH STRAIGHT LEG RAISES AT 40 DEGREES FOR THE RIGHT LEG AND 45 DEGREES FOR THE LEFT. 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, LUMBAR REGION - M51.16 INTERVERTEBRAL DISC DISORDERS WITH RADICULOPATHY, LUMBOSACRAL REGION - M51.17 TREATMENT SACROILIITIS, NOT ELSEWHERE CLASSIFIED REFILL IBUPROFEN TABLET, 800 MG, 1 TABLET, ORALLY WITH FOOD, THREE TIMES A DAY, 30 DAY(S), 90 TABLET, REFILLS 1 REFILL COLACE CAPSULE, 100 MG, 2 CAPSULES, ORALLY, FOUR TIMES A DAY MDD8, 30 DAY(S), 240, REFILLS 2 REFILL ZANAFLEX TABLET, 4 MG, 1 TABLET NEEDED, ORALLY, BEFORE BEDTIME MAY REPEAT IN 4 HRS MDD2, 30 DAY(S), 60, REFILLS 2 REFILL LIDODERM PATCH, 5 %, 3 PATCH TO INTACT SKIN REMOVE AFTER 12 HOURS, EXTERNALLY 2 THORAX1 BACK, APPLY TO PAINFUL AREA OF BACK ON 12 HRS, OFF 12 HRS, 30 DAYS, 90, REFILLS 2 REFILL VOLTAREN GEL, 1 %, ONE APPLICATION, EXTERNALLY, EVERY 6 HOURS NEEDED TO LOW BACK, 30 DAY(S), 3 TUBE, REFILLS 2 REFILL METHADONE HCL TABLET, 10 MG, 1 TABLET, ORALLY, 1 EVERY 6 HRS NEEDED DAILY FOR PAIN MDD4, 30 DAY(S), 120, REFILLS 0 REFILL GABAPENTIN CAPSULE, 300 MG, 1 CAPSULE, ORALLY WORKERS COMPENSATION, FOUR TIMES DAILY MDD4, 30 DAY(S), 120, REFILLS 2 REFILL PREVACID CAPSULE DELAYED RELEASE, 30 MG, 1 CAPSULE BEFORE A MEAL, ORALLY, DAILY, 30 DAY(S), 30, REFILLS 2 NOTES: WE DICUSSED SEVERAL ISSUES WITH MR. MEDINA' PAIN MANAGEMENT CASE. PATIENT WILL CONTINUE WITH THE SAME MEDICATION REGIME BEFORE. PATIENT IS USING THE METHADONE FOR THE SOMATIC PAIN, GABAPENTIN FOR THE NEUROPATHIC PAIN, ZANAFLEX FOR THE MUSCLE SPASMS, LIDODERM AND VOLTAREN GEL FOR THE SOMATIC PAIN, AND COLACE FOR THE CHRONIC CONSTIPATION. PATIENT DENIES ABUSE OF ANY MEDICATION, DENIES USE OF ILLEGAL SUBSTANCES, AND STATS THAT HE IS ONLY USING THE MEDICATION FOR PAIN MANAGEMENT. URINE TOXICOLOGY REPORT DONE ON 07/01/16 SHOWS CONSISTENT RESULTS WITH THE PATIENT'S MEDICATION LIST. AT THIS TIME THE PATIENT IS DOING VERY WELL FROM THE THORACIC FACET BLOCK AND DOES NOT NEED ANY INTERVENTIONS FOR THAT AREA. PATIENT IS HAVING SEVERE PAIN IN THE LOWER BACK AND RADICULAR PAIN I WOULD LIKE TO MOVE FORWARD WITH A LUMBAR EPIDURAL. WE DISCUSSED THE RISKS, BENENFITS, AND ALTNERATIVES OF THE INJECTION AND THE PATIENT WOULD LIKE TO PROCEED AT THIS TIME. INSTRUCTIONS WERE GIVEN, QUESTIONS WERE ANSWERED, PATIENT REPORTS UNDERSTANDING AND AGREES WITH THE PLAN. I, TIARA SPEAR, DOCUMENTED THE ABOVE INFORMATION ACTING A SCRIBE FOR DR. CAMPBELL. I HAVE REVIEWED THE ABOVE DOCUMENT, WRITTEN BY TIARA RODRIGUEZ AND I VERIFY THAT IT IS ACCURATE. PROCEDURES PN WORKMANS' COMP OPINION IN YOUR OPINION, WAS THE INCIDENT THAT THE PATIENT DESCRIBED THE COMPETENT MEDICAL CAUSE OF THIS INJURY/ILLNESS? YES ARE THE PATIENT'S COMPLAINTS CONSISTENT WITH HIS/HER HISTORY OF THE INJURY/ILLNESS? YES IS THE PATIENT'S HISTORY OF THE INJURY/ILLNESS CONSISTENT WITH YOUR OBJECTIVE FINDING? YES WHAT IS THE PERCENTAGE OF TEMPORARY IMPAIRMENT? MARKED = 75% IS THE PATIENT WORKING? NO DOCTOR ON SITE: JENNIFER BACON MD PROCEDURE CODES FA211 ESTABILISHED PATIENT [facility] FACILITY CHARGE G8427 DOC MEDS VERIFIED W/PT OR RE G8730 PAIN ASSESS POS TOOL F/U PLAN DOC DISPOSITION & COMMUNICATION FOLLOW UP 3 WEEKS ELECTRONICALLY SIGNED BY JENNIFER CAMPBELL MD ON 03/23/2017 AT 08:53 PM EDT DISCLAIMER : THIS IS A VISIT SUMMARY EXTRACTED FROM THE [employer] CHART. IT IS NOT A COPY OF THE [employer] PROGRESS NOTE. VIJI
== END ==
LOC: M PAIN 14:20
PROVIDERS: ATTEND Anesthesiology
DX: G89.29 Other chronic pain (principal); M46.1 Sacroiliitis, not elsewhere classified; M47.814 Spondylosis without myelopathy or radiculopathy, thoracic region; M47.816 Spondylosis without myelopathy or radiculopathy, lumbar region; M47.817 Spondylosis without myelopathy or radiculopathy, lumbosacral region; M51.16 Intervertebral disc disorders with radiculopathy, lumbar region; M51.17 Intervertebral disc disorders with radiculopathy, lumbosacral region; J45.909 Unspecified asthma, uncomplicated; F31.9 Bipolar disorder, unspecified; G47.00 Insomnia, unspecified; Z79.1 Long term (current) use of non-steroidal anti-inflammatories (NSAID); Z79.82 Long term (current) use of aspirin; F11.20 Opioid dependence, uncomplicated; Z79.899 Other long term (current) drug therapy

== ENCOUNTER → 2017-04-15 | Outpatient (CLI) | payer OTHER ==
--- NOTE | 2017-04-30 00:34 | ECWPNPC ---
PATIENT NAME: ROGERIO MEDINA : 1965 GENDER: MALE VISIT DATE: 04/15/2017 DISCHARGE DATE: 04/15/17 1108 VISIT LOCKED DATE TIME: PHYSICIAN: SEBLE THOMAS RESOURCE: SEBLE THOMAS REASON FOR APPOINTMENT 1. NEW BODY PARRT, KNEES, BILAT HISTORY OF PRESENT ILLNESS NEW PATIENT CONSULT: WHEN DID YOUR PAIN FIRST START? . BRIEFLY DESCRIBE HOW YOUR PAIN STARTED? . HOW DOES YOUR PAIN CHANGE WITH TIME? . DOES YOUR PAIN AWAKEN YOU FROM SLEEP? . HOW MANY HOURS OF SLEEP DO YOU NORMALLY GET? . ANY DIAGNOSTIC TESTING? . FACILITY WHERE TESTS WERE DONE? ____. PAIN TREATMENT TREATMENT YES CANCER HAVE YOU EVER HAD ANY TYPE OF CANCER?NO NO. PAIN SCREENING: PATIENT HAS A COMPLAINT OF ACUTE OR CHRONIC PAIN :YES FALL RISK SCREENING: SCREENING :NO FALLS IN THE PAST YEAR GARCIA INVENTORY: QUESTIONNAIRE ASSESSEDTBD SCORE VALUE CALCULATED TBD TODAY'S VISIT: NOTES: HC EVAL FOR BOTH KNEES. REFERRED BY Scott Mccoy ONSET X MANY YEARS. WAS SEEN BY DR ALCARAZ AND HAD INJECTION IN THE PAST AND THIS WAS HELPFUL. WAS ALSO ON AN &QUOT;ARTHRITIS MED&QUOT; WHICH WAS ALSO HELPFUL. HAD IMAGING DONE ON 02/13. XRAYS WERE DONE. PAIN IS ALONG MEDIAL ASPECT AND AROUND KNEE CAP. NO SWELLING. HAS PAIN WITH STANDING, CLIMBING STAIRS, OR PUTTING PRESSURE. PAIN IS WORST AT THEN END OF THE DAY. HAS BEEN ON IBUPROFEN FOR OVER 1 1/2 YEARS WITH MIN TO MODERATE IMPROVEMENT. PAIN IS SHARP, ACHING AND SHOOTS DOWN INSIDE OF [place] ALONG BONE.. CURRENT MEDICATIONS TAKING HYDROXYZINE HCL 25MG TABLET 1 TABLET BY MOUTH QID PRN TAKING CYANOCOBALAMIN 1000 MCG TABLET 1 TABLET ORALLY EVERY OTHER DAY FOR B12 DEFICIENCY TAKING METRONIDAZOLE 0.75 % CREAM 1 APPLICATION A THIN LAYER TO AFFECTED AREA EXTERNALLY TWICE A DAY FOR ROSACEA TAKING CLINDAMYCIN PHOSPHATE 1 % SOLUTION 1 DROP TO RASH ON CHEST, BACK AND LEGS EXTERNALLY BID PRN TAKING CLOTRIMAZOLE-BETAMETHASONE 1-0.05 % CREAM 1 APPLICATION TO BACK/CHEST/LEGS EXTERNALLY TWICE A DAY PRN FOLLICULITIS TAKING VITAMIN D 400 UNIT TABLET 1 CAPSULE ORALLY ONCE A DAY TAKING ASPIR-81 81 MG TABLET DELAYED RELEASE 1 TABLET ORALLY ONCE A DAY TAKING EVZIO 0.4 MG/0.4ML SOLUTION AUTO-INJECTOR DIRECTED INJECTION FOR EMERGENCY USE ONLY TAKING PRAVASTATIN SODIUM 10 MG TABLET 1 TABLET ORALLY ONCE A DAY TAKING BUPROPION HCL ER (XL) 450 MG TABLET EXTENDED RELEASE 24 HOUR TAKE ONE TABLET BY MOUTH EVERY MORNING ORALLY ONCE A DAY TAKING PRAZOSIN HCL 1 MG CAPSULE 2 CAPSULE ORALLY QHS MDD=2 TAKING ABILIFY 20 MG TABLET 1 TABLET ORALLY ONCE A DAY TAKING SUMATRIPTAN SUCCINATE 100 MG TABLET 1 TABLET NEEDED, REPEAT ONCE AFTER 2 HOURS PRN ORALLY ONCE A DAY MDD=2 MAX 4 MIGRAINES/MONTH TAKING ADDERALL 20 MG TABLET 1 TAB(S) ORALLY DAILY TAKING DIAZEPAM 10 MG TABLET 1 TABLET NEEDED ORALLY TWICE DAILY PRN MDD=2 TAKING ADDERALL XR 15 MG CAPSULE EXTENDED RELEASE 24 HOUR (SCHEDULE II DRUG) TAKE ONE CAPSULE BY MOUTH EVERY MORNING FOR ADHD MAXIMUM DAILY DOSE 1 CAPSULE ORAL TAKING SYSTANE ULTRA 0.4-0.3 % SOLUTION INSTILL 1 DROP IN EACH EYE FOUR TIMES A DAY OR NEEDED OPHTHALMIC TAKING EPIPEN 2-PIERCE 0.3 MG/0.3ML DEVICE DIRECTED INJECTION ONCE FOR ALLERGIC REACTION TAKING IBUPROFEN 800 MG TABLET 1 TABLET ORALLY WITH FOOD THREE TIMES A DAY TAKING COLACE 100 MG CAPSULE 2 CAPSULES ORALLY FOUR TIMES A DAY MDD8 TAKING ZANAFLEX 4 MG TABLET 1 TABLET NEEDED ORALLY BEFORE BEDTIME MAY REPEAT IN 4 HRS MDD2 TAKING LIDODERM 5 % PATCH 3 PATCH TO INTACT SKIN REMOVE AFTER 12 HOURS EXTERNALLY 2 THORAX1 BACK APPLY TO PAINFUL AREA OF BACK ON 12 HRS, OFF 12 HRS TAKING VOLTAREN 1 % GEL ONE APPLICATION EXTERNALLY EVERY 6 HOURS NEEDED TO LOW BACK TAKING METHADONE HCL 10 MG TABLET 1 TABLET ORALLY 1 EVERY 6 HRS NEEDED DAILY FOR PAIN MDD4 TAKING GABAPENTIN 300 MG CAPSULE 1 CAPSULE ORALLY WORKERS COMPENSATION FOUR TIMES DAILY MDD4 TAKING PREVACID 30 MG CAPSULE DELAYED RELEASE 1 CAPSULE BEFORE A MEAL ORALLY DAILY TAKING ZYRTEC 10 MG TABLET 1 TABLET ORALLY ONCE A DAY TAKING TESTOSTERONE CYPIONATE 200 MG/ML SOLUTION 1.75 ML INTRAMUSCULAR INJECTED MONTHLY (MDD: 1.75 ML/MONTH) TAKING SODIUM FLUORIDE 1.1 MG TABLET 1 TABLET AT BEDTIME ORALLY ONCE A DAY NOT-TAKING AZELASTINE HCL 0.05 % SOLUTION 1 DROP INTO AFFECTED EYE OPHTHALMIC TWICE A DAY PRN ALLERGIES NOT-TAKING MULTIVITAMINS MVI TABLET 1 TAB(S) ORALLY DAILY FOR GENERAL HEALTH NOT-TAKING ADDERALL 15 MG TABLET 1 TABLET AT LUNCHTIME ORALLY ONCE A DAY NOT-TAKING ARTIFICIAL TEARS 0.4 % SOLUTION 1 DROP INTO EACH EYE OPHTHALMIC UP TO 6 TIMES DAILY PRN DRY EYES, NOTES: [id number] NOT-TAKING MIRTAZAPINE 45 MG TABLET 1 TABLET BEFORE BEDTIME IN THE EVENING ORALLY ONCE A DAY NOT-TAKING DEPAKOTE ER 250 MG TABLET EXTENDED RELEASE 24 HOUR 1 TAB(S) ORALLY DAILY NOT-TAKING ERYTHROMYCIN 2 % PAD 1 PAD TO FACE NEEDED EXTERNALLY TWICE A DAY FOR ROSACEA NOT-TAKING ALBUTEROL SULFATE HFA 108 (90 BASE) MCG/ACT AEROSOL SOLUTION 2 PUFFS INHALATION ONCE DAILY NEEDED, NOTES: NONE RECENTLY MEDICATION LIST REVIEWED AND RECONCILED WITH THE PATIENT PAST MEDICAL HISTORY CHRONIC BACK PAIN H/O T8 FRACTURE AND T6-7 DISC HERNIATION ASTHMA ALLERGIC RHINITIS DEPRESSION/BIPOLAR DISORDER ROSACEA/FOLLICULIITS H/O KIDNEY STONES GASTROPARESIS INSOMNIA LOW TESOSTERONE HERNIATED DISC L3-L5, HIGH CHOLESTEROL REFLUX ALLERGIES ENVIRONMENTAL: ITCHY EYES, WHEEZING, SNEEZING: ALLERGY SURGICAL HISTORY TESTICLE REMOVED 02/2016 LEFT AND RIGHT BUNION REMOVAL UNSURE DATE FAMILY HISTORY FATHER: , DIAGNOSED WITH DIABETES, HEART DISEASE MOTHER: ALIVE, DIAGNOSED WITH PSYCHIATRIC CONDITIONS 1 BROTHER(S) . SOCIAL HISTORY GENERAL: TOBACCO USE ARE YOU A:FORMER SMOKER HOW LONG HAS IT BEEN SINCE YOU LAST SMOKED?> 10 YEARS RECREATIONAL DRUG USE DRUG USE?NO YAZIDI [id number] NONE LANGUAGE LANGUAGES SPOKEN:FIJIAN LEARNING BARRIERS / SPECIAL NEEDS BARRIERS TO LEARNING?NO HEARING IMPAIRED?NO VISION IMPAIRED?YES :CORRECTIVE LENSES COGNITIVELY IMPAIRED?NO READINESS TO LEARN?YES LEARNING PREFERENCES?NO LEARNING CAPABILITIES PRESENT?YES EMOTIONAL BARRIERS?NO SPECIAL DEVICES?NO OTOLARYNGOLOGIST NEEDED?NO PAIN CLINIC PFS, CLERGY, PUBLIC HEALTH REFERRALS PFS REFERRAL NEEDED?NO CLERGY REFERRAL NEEDED?NO PUBLIC HEALTH REFERRAL NEEDED?NO WAS THE PROVIDER NOTIFIED OF ANY PERTINENT INFO?NO HAS THE PATIENT BEEN EDUCATED REGARDING HIS/HER PLAN OF CARE?YES HAS THE PATIENT BEEN EDUCATED REGARDING PAIN, THE RISK FOR PAIN, THE IMPORTANCE OF EFFECTIVE PAIN MANAGEMENT, AND THE PAIN ASSESSMENT PROCESS?YES PATIENT: ____. HOSPITALIZATION/MAJOR DIAGNOSTIC PROCEDURE ACCIDENTAL OVERDOSE (SLEEPING PILLS) HASEEB 11/2010 BIPOLAR DISORDER ([facility]) 2011 REVIEW OF SYSTEMS REVIEWED BY: PROVIDER: SEBLE BUCKNER . CONSTITUTIONAL: ANY CHANGE IN YOUR MEDICAL CONDITION? NO . CHILLS NO . FEVER NO . INFECTION: DO YOU HAVE NEW INFECTIONS? NO . DO YOU HAVE HISTORY OF MRSA? NO . MUSCULOSKELETAL: ANY NEW PATTERNS OF PAIN OR NUMBNESS? NO . SYTEMIC LUPUS NO . BACK PAIN COVERED UNDER WC - WAITING ON INJECTION TREATMET FOR LOW BACK . GASTROENTEROLOGY: ANY NEW CHANGE IN BOWEL CONTROL? NO . BARRETTS ESOPHAGUS NO . CIRRHOSIS NO . HEPATITIS NO . LIVER FAILURE NO . ACID REFLUX YES . UNEXPLAINED WEIGHT LOSS NO . GENITOURINARY: ANY NEW CHANGE IN BLADDER CONTROL? NO . IS THERE A CHANCE YOU COULD BE ? NO . HEMATOLOGY/LYMPH: DO YOU TAKE ANY BLOOD THINNERS? (FOR EXAMPLE- COUMADIN, PLAVIX, AGGRENOX, PLATEL, PRADAXA, OR XARELTO) NO . WHEN WAS YOUR LAST DOSE? DATE: TIME: . LOW PLATELET COUNT NO . SICKLE CELL DISEASE NO . VON WILLIEBRANDS NO . FACTOR V LEIDEN NO . THALLASEMIA NO . ANEMIA NO . EASY BRUISING NO . NEUROLOGY: HAVE YOU FALLEN IN THE PAST 6 MONTHS? NO . ANY NEW EXTREMITY NUMBNESS OR WEAKNESS? NO . HEAD INJURY NO . DEMENTIA NO . CEREBRAL PALSY NO . MULTIPLE SCLEROSIS NO . DIZZINESS NO . HEADACHE NO . STROKES NO . VERTIGO NO . CARDIOLOGY: DO YOU HAVE A PACEMAKER OR DEFIBRILLATOR? NO . ANGINA NO . HEART ATTACK NO . HEART SURGERY NO . CONGESTIVE HEART FAILURE/FLUID OVERLOAD NO . CHEST PAIN NO . HIGH BLOOD PRESSURE NO . IRREGULAR HEART BEAT NO . RESPIRATORY: HAVE YOU BEEN SICK IN THE PAST WEEK? NO . FEVER NO . FLU LIKE SYMPTOMS? NO . CPAP NO . BYPAP NO . ASTHMA YES . EMPHYSEMA NO . CHRONIC LUNG DISEASES NO . SHORTNESS OF BREATH ON EXERTION NO . DO YOU USE ANY TYPE OF TOBACCO (SMOKE, SMOKELESS, CHEW)? NO . COUGH NO . SNORING YES . INTEGUMENTARY: DO YOU HAVE ANY RASHES OR OPEN SORES? NO . ALLERGIC/IMMUNO: ARE YOU ALLERGIC TO SHELLFISH OR IV DYE? NO . ANY NEW ALLERGIES? NO . PSYCHIATRIC: DO YOU HAVE THOUGHTS OF HURTING YOURSELF OR SOMEONE ELSE? NO . ARE YOU ABUSED, NEGLECTED, OR IN AN UNSAFE ENVIRONMENT? NO . ENDOCRINOLOGY: ARE YOU DIABETIC? NO . THYROID DISORDER NO . OTHER: DO YOU NEED ANY PRESCRIPTIONS? NO . IF YES, PLEASE LIST: ____ . ANY NEW PROBLEMS WITH YOUR MEDICATIONS? NO . WHEN DID YOU LAST EAT? ____ . WHEN DID YOU LAST DRINK? ____ . WHAT DID YOU LAST DRINK? ____ . NAME OF PERSON DRIVING YOU HOME? ____ . DO YOU HAVE ANY OTHER QUESTIONS OR CONCERNS NO . PSYCHOLOGY: DEPRESSION FOLLOWS AT [facility] . SLEEP DISTURBANCES SLEEP IS "NOT BAD" BUT ON COUCH A LOT . VITAL SIGNS WT 174 LBS, HT 68 IN, BMI 26.45 INDEX, BP 134/71 MM HG, HR 79 /MIN, RR 16 /MIN, TEMP 99.1 F, OXYGEN SAT % 98%, NA INITIALS SC 09:48, REVIEWED BY: ABRAHAM. EXAMINATION GENERAL EXAMINATION: PSYCHALERT , ORIENTED X 3 , APPROPRIATE MOOD AND AFFECT , QUIET. LUNGS:CLEAR TO AUSCULTATION BILATERALLY. SOME DECREASE IN THOACIC EXCURSION. . HEART:HEART RATE REGULAR. MUSCULOSKELETAL:TENDER OVER BILATERAL QUADRICEPS TENDON, LEFT > RIGHT. TENDER ALONG LATER AND MEDIAL ASPECT OF THE KNEE. SOME EDEMA NOTED OVER LEFT LATERAL KNEE. NO POPLITEAL NODULES NOTED. POST ANTERIOR DRAWER SIGN L>R. SLOW TO RISE TO STANDING POSITION LEFT LEG LIMP NTED.. NEUROLOGIC EXAM:CN'S II-XII GROSSLY INTACT, ALERT AND ORIENTED X 3, NO SENSORY DEFICEIT OVER KNEES.. ASSESSMENTS PAIN IN LEFT KNEE - M25.562 (PRIMARY) PAIN IN RIGHT KNEE - M25.561 TREATMENT PAIN IN LEFT KNEE [facility] MRI KNEE WITHOUT [id number],SUSAN M 04/15/2017 10:48:19 AM > INCREASING PAIN, SWELLING, DIFFICULTY WALKING NOTES: START PHYSICAL THERAPY FOR KNEES. CLINICAL NOTES: RADHA HAS BEEN ON A PROLONGED COURSE OF NSAIDS WHICH HAVE NOT IMPROVED HIS KNEE PAIN OR THE SWELLING. HE HAS NOT YET STARTED PHYSICAL THERAPY AND I AM ORDERING THIS TODAY. HE HAS BEEN ONLY MANY OTHER MEDS SUCH OPIATES, MUSCLE RELAXERS AND THESE HAVE BROUGHT NO RELIEF TO THE KNEE PAIN. FOR THIS REASON I AM RESPECTFULLY REQUESTING MRI OF THE KNEES IN ADVANCE OF INTERVENTIONAL TREATMENT - INJECTIONS. PROCEDURE CODES FA211 ESTABILISHED PATIENT [facility] CHARGE DISPOSITION & COMMUNICATION FOLLOW UP 1 MONTH(05/14/17 - MAKE 2 APPTS) (REASON: CHECK AUTH FOR MRI OF KNEES) ELECTRONICALLY SIGNED BY MARIE [place] ON 04/29/2017 AT 01:00 PM EDT DISCLAIMER : THIS IS A VISIT SUMMARY EXTRACTED FROM THE [employer] CHART. IT IS NOT A COPY OF THE [employer] PROGRESS NOTE. VIJI
== END ==
LOC: M PAIN 09:30
PROVIDERS: ATTEND Nurse Practitioner Family
DX: G89.29 Other chronic pain (principal); M25.562 Pain in left knee; M25.561 Pain in right knee; E78.2 Mixed hyperlipidemia; F43.10 Post-traumatic stress disorder, unspecified; F31.9 Bipolar disorder, unspecified; F41.1 Generalized anxiety disorder; G43.709 Chronic migraine without aura, not intractable, without status migrainosus; E55.9 Vitamin D deficiency, unspecified; E53.8 Deficiency of other specified B group vitamins; J30.89 Other allergic rhinitis; Z79.82 Long term (current) use of aspirin; Z79.1 Long term (current) use of non-steroidal anti-inflammatories (NSAID); F11.20 Opioid dependence, uncomplicated; Z79.899 Other long term (current) drug therapy; Z87.891 Personal history of nicotine dependence

== ENCOUNTER → 2017-05-14 | Outpatient (CLI) | payer OTHER ==
--- NOTE | 2017-06-12 01:21 | ECWPNPC ---
PATIENT NAME: ROGERIO MEDINA : 1965 GENDER: MALE VISIT DATE: 05/14/2017 DISCHARGE DATE: 05/14/17 1032 VISIT LOCKED DATE TIME: PHYSICIAN: SEBLE THOMAS RESOURCE: SEBLE THOMAS REASON FOR APPOINTMENT 1. KNEES/[facility] HISTORY OF PRESENT ILLNESS FALL RISK SCREENING: SCREENING :NO FALLS IN THE PAST YEAR PAIN SCREENING: PATIENT HAS A COMPLAINT OF ACUTE OR CHRONIC PAIN :YES TODAY'S VISIT: NOTES: FOLLOW UP [facility] - KNEES - RATES PAIN LEVEL I KNEES 12/07. DESCRIBES PAIN CONSTANT, ACHING THROBBING AND SORE. NO CHANGES SINCE LAST VISIT. HAS NOT BEEN ABLE TO START PHYSICAL THERAPY. HAS INCREASED WALKING BUT KNOTES THE KNEES "CATCH" AND HE FEELS LIKE THEY WILL GIVE OUT.. CURRENT MEDICATIONS TAKING HYDROXYZINE HCL 25MG TABLET 1 TABLET BY MOUTH QID PRN TAKING CYANOCOBALAMIN 1000 MCG TABLET 1 TABLET ORALLY EVERY OTHER DAY FOR B12 DEFICIENCY TAKING METRONIDAZOLE 0.75 % CREAM 1 APPLICATION A THIN LAYER TO AFFECTED AREA EXTERNALLY TWICE A DAY FOR ROSACEA TAKING CLINDAMYCIN PHOSPHATE 1 % SOLUTION 1 DROP TO RASH ON CHEST, BACK AND LEGS EXTERNALLY BID PRN TAKING CLOTRIMAZOLE-BETAMETHASONE 1-0.05 % CREAM 1 APPLICATION TO BACK/CHEST/LEGS EXTERNALLY TWICE A DAY PRN FOLLICULITIS TAKING VITAMIN D 400 UNIT TABLET 1 CAPSULE ORALLY ONCE A DAY TAKING ASPIR-81 81 MG TABLET DELAYED RELEASE 1 TABLET ORALLY ONCE A DAY TAKING EVZIO 0.4 MG/0.4ML SOLUTION AUTO-INJECTOR DIRECTED INJECTION FOR EMERGENCY USE ONLY TAKING PRAVASTATIN SODIUM 10 MG TABLET 1 TABLET ORALLY ONCE A DAY TAKING BUPROPION HCL ER (XL) 450 MG TABLET EXTENDED RELEASE 24 HOUR TAKE ONE TABLET BY MOUTH EVERY MORNING ORALLY ONCE A DAY TAKING PRAZOSIN HCL 1 MG CAPSULE 2 CAPSULE ORALLY QHS MDD=2 TAKING ABILIFY 20 MG TABLET 1 TABLET ORALLY ONCE A DAY TAKING SUMATRIPTAN SUCCINATE 100 MG TABLET 1 TABLET NEEDED, REPEAT ONCE AFTER 2 HOURS PRN ORALLY ONCE A DAY MDD=2 MAX 4 MIGRAINES/MONTH TAKING ADDERALL 20 MG TABLET 1 TAB(S) ORALLY DAILY TAKING DIAZEPAM 10 MG TABLET 1 TABLET NEEDED ORALLY TWICE DAILY PRN MDD=2 TAKING ADDERALL XR 15 MG CAPSULE EXTENDED RELEASE 24 HOUR (SCHEDULE II DRUG) TAKE ONE CAPSULE BY MOUTH EVERY MORNING FOR ADHD MAXIMUM DAILY DOSE 1 CAPSULE ORAL TAKING SYSTANE ULTRA 0.4-0.3 % SOLUTION INSTILL 1 DROP IN EACH EYE FOUR TIMES A DAY OR NEEDED OPHTHALMIC TAKING EPIPEN 2-PIERCE 0.3 MG/0.3ML DEVICE DIRECTED INJECTION ONCE FOR ALLERGIC REACTION TAKING COLACE 100 MG CAPSULE 2 CAPSULES ORALLY FOUR TIMES A DAY MDD8 TAKING LIDODERM 5 % PATCH 3 PATCH TO INTACT SKIN REMOVE AFTER 12 HOURS EXTERNALLY 2 THORAX1 BACK APPLY TO PAINFUL AREA OF BACK ON 12 HRS, OFF 12 HRS TAKING VOLTAREN 1 % GEL ONE APPLICATION EXTERNALLY EVERY 6 HOURS NEEDED TO LOW BACK TAKING ZYRTEC 10 MG TABLET 1 TABLET ORALLY ONCE A DAY TAKING SODIUM FLUORIDE 1.1 MG TABLET 1 TABLET AT BEDTIME ORALLY ONCE A DAY TAKING IBUPROFEN 800 MG TABLET 1 TABLET ORALLY WITH FOOD THREE TIMES A DAY TAKING METHADONE HCL 10 MG TABLET 1 TABLET ORALLY 1 EVERY 6 HRS NEEDED DAILY FOR PAIN MDD4 TAKING PREVACID 30 MG CAPSULE DELAYED RELEASE 1 CAPSULE BEFORE A MEAL ORALLY DAILY TAKING TESTOSTERONE CYPIONATE 200 MG/ML SOLUTION 1.75 ML INTRAMUSCULAR INJECTED MONTHLY (MDD: 1.75 ML/MONTH) TAKING GABAPENTIN 300 MG CAPSULE 1 CAPSULE ORALLY WORKERS COMPENSATION FOUR TIMES DAILY MDD4 TAKING ZANAFLEX 4 MG TABLET 1 TABLET NEEDED ORALLY BEFORE BEDTIME MAY REPEAT IN 4 HRS MDD2 NOT-TAKING AZELASTINE HCL 0.05 % SOLUTION 1 DROP INTO AFFECTED EYE OPHTHALMIC TWICE A DAY PRN ALLERGIES NOT-TAKING MULTIVITAMINS MVI TABLET 1 TAB(S) ORALLY DAILY FOR GENERAL HEALTH NOT-TAKING ADDERALL 15 MG TABLET 1 TABLET AT LUNCHTIME ORALLY ONCE A DAY NOT-TAKING ARTIFICIAL TEARS 0.4 % SOLUTION 1 DROP INTO EACH EYE OPHTHALMIC UP TO 6 TIMES DAILY PRN DRY EYES, NOTES: [id number] NOT-TAKING MIRTAZAPINE 45 MG TABLET 1 TABLET BEFORE BEDTIME IN THE EVENING ORALLY ONCE A DAY NOT-TAKING DEPAKOTE ER 250 MG TABLET EXTENDED RELEASE 24 HOUR 1 TAB(S) ORALLY DAILY NOT-TAKING ERYTHROMYCIN 2 % PAD 1 PAD TO FACE NEEDED EXTERNALLY TWICE A DAY FOR ROSACEA NOT-TAKING ALBUTEROL SULFATE HFA 108 (90 BASE) MCG/ACT AEROSOL SOLUTION 2 PUFFS INHALATION ONCE DAILY NEEDED, NOTES: NONE RECENTLY MEDICATION LIST REVIEWED AND RECONCILED WITH THE PATIENT PAST MEDICAL HISTORY CHRONIC BACK PAIN H/O T8 FRACTURE AND T6-7 DISC HERNIATION ASTHMA ALLERGIC RHINITIS DEPRESSION/BIPOLAR DISORDER ROSACEA/FOLLICULIITS H/O KIDNEY STONES GASTROPARESIS INSOMNIA LOW TESOSTERONE HERNIATED DISC L3-L5, HIGH CHOLESTEROL REFLUX ALLERGIES ENVIRONMENTAL: ITCHY EYES, WHEEZING, SNEEZING: ALLERGY SOCIAL HISTORY GENERAL: TOBACCO USE ARE YOU A:FORMER SMOKER HOW LONG HAS IT BEEN SINCE YOU LAST SMOKED?> 10 YEARS RECREATIONAL DRUG USE DRUG USE?NO CAFFEINE CAFFEINE USE?YES HOW OFTEN AND HOW MUCH? 2 CUPS PER DAY JEWISH [id number] NONE LANGUAGE LANGUAGES SPOKEN:[place] LEARNING BARRIERS / SPECIAL NEEDS BARRIERS TO LEARNING?NO HEARING IMPAIRED?NO VISION IMPAIRED?YES :CORRECTIVE LENSES COGNITIVELY IMPAIRED?NO READINESS TO LEARN?YES LEARNING PREFERENCES?NO LEARNING CAPABILITIES PRESENT?YES EMOTIONAL BARRIERS?NO SPECIAL DEVICES?NO WELFARE PROJECT MANAGER NEEDED?NO PAIN CLINIC PFS, CLERGY, PUBLIC HEALTH REFERRALS PFS REFERRAL NEEDED?NO CLERGY REFERRAL NEEDED?NO PUBLIC HEALTH REFERRAL NEEDED?NO WAS THE PROVIDER NOTIFIED OF ANY PERTINENT INFO?YES HAS THE PATIENT BEEN EDUCATED REGARDING HIS/HER PLAN OF CARE?YES HAS THE PATIENT BEEN EDUCATED REGARDING PAIN, THE RISK FOR PAIN, THE IMPORTANCE OF EFFECTIVE PAIN MANAGEMENT, AND THE PAIN ASSESSMENT PROCESS?YES REVIEWED BY: TORO. PATIENT: ____. REVIEW OF SYSTEMS REVIEWED BY: PROVIDER: SEBLE BUCKNER . CONSTITUTIONAL: ANY CHANGE IN YOUR MEDICAL CONDITION? NO . CHILLS NO . FEVER NO . INFECTION: DO YOU HAVE NEW INFECTIONS? NO . DO YOU HAVE HISTORY OF MRSA? NO . MUSCULOSKELETAL: ANY NEW PATTERNS OF PAIN OR NUMBNESS? NO . SYTEMIC LUPUS NO . GASTROENTEROLOGY: ANY NEW CHANGE IN BOWEL CONTROL? NO . BARRETTS ESOPHAGUS NO . CIRRHOSIS NO . HEPATITIS NO . LIVER FAILURE NO . ACID REFLUX UNDER GOOD CONTROL WITH CURRENT MEDS . UNEXPLAINED WEIGHT LOSS NO . GENITOURINARY: ANY NEW CHANGE IN BLADDER CONTROL? NO . IS THERE A CHANCE YOU COULD BE ? NO . HEMATOLOGY/LYMPH: DO YOU TAKE ANY BLOOD THINNERS? (FOR EXAMPLE- COUMADIN, PLAVIX, AGGRENOX, PLATEL, PRADAXA, OR XARELTO) NO . WHEN WAS YOUR LAST DOSE? DATE: TIME: . LOW PLATELET COUNT NO . SICKLE CELL DISEASE NO . VON WILLIEBRANDS NO . FACTOR V LEIDEN NO . THALLASEMIA NO . ANEMIA NO . EASY BRUISING NO . NEUROLOGY: HAVE YOU FALLEN IN THE PAST 6 MONTHS? NO . ANY NEW EXTREMITY NUMBNESS OR WEAKNESS? NO . HEAD INJURY NO . DEMENTIA NO . CEREBRAL PALSY NO . MULTIPLE SCLEROSIS NO . DIZZINESS NO . HEADACHE NO . STROKES NO . VERTIGO NO . CARDIOLOGY: DO YOU HAVE A PACEMAKER OR DEFIBRILLATOR? NO . ANGINA NO . HEART ATTACK NO . HEART SURGERY NO . CONGESTIVE HEART FAILURE/FLUID OVERLOAD NO . CHEST PAIN NO . HIGH BLOOD PRESSURE NO . IRREGULAR HEART BEAT NO . RESPIRATORY: HAVE YOU BEEN SICK IN THE PAST WEEK? NO . FEVER NO . FLU LIKE SYMPTOMS? NO . CPAP NO . BYPAP NO . ASTHMA NO . EMPHYSEMA NO . CHRONIC LUNG DISEASES NO . SHORTNESS OF BREATH ON EXERTION NO . COUGH NO . SNORING NO . INTEGUMENTARY: DO YOU HAVE ANY RASHES OR OPEN SORES? NO . ALLERGIC/IMMUNO: ARE YOU ALLERGIC TO SHELLFISH OR IV DYE? NO . ANY NEW ALLERGIES? NO . PSYCHIATRIC: DO YOU HAVE THOUGHTS OF HURTING YOURSELF OR SOMEONE ELSE? NO . ARE YOU ABUSED, NEGLECTED, OR IN AN UNSAFE ENVIRONMENT? NO . ENDOCRINOLOGY: ARE YOU DIABETIC? NO . THYROID DISORDER NO . OTHER: DO YOU NEED ANY PRESCRIPTIONS? NO . IF YES, PLEASE LIST: ____ . ANY NEW PROBLEMS WITH YOUR MEDICATIONS? NO . WHEN DID YOU LAST EAT? ____ . WHEN DID YOU LAST DRINK? ____ . WHAT DID YOU LAST DRINK? ____ . NAME OF PERSON DRIVING YOU HOME? ____ . DO YOU HAVE ANY OTHER QUESTIONS OR CONCERNS NO . VITAL SIGNS WT 168 LBS, HT 68 IN, BMI 25.54 INDEX, BP 112/67 MM HG, HR 75 /MIN, RR 16 /MIN, TEMP 99.1 F, OXYGEN SAT % 99, SAFE IN ENV? (Y/N) Y, REVIEWED BY: TORO. EXAMINATION GENERAL EXAMINATION: PSYCHALERT , ORIENTED X 3 , APPROPRIATE MOOD AND AFFECT , QUIET. LUNGS:CLEAR TO AUSCULTATION BILATERALLY. . HEART:HEART RATE REGULAR. MUSCULOSKELETAL:TENDER OVER BILATERAL QUADRICEPS TENDON, LEFT > RIGHT. TENDER ALONG LATERAL AND MEDIAL ASPECT OF THE KNEE, LEFT > RIGHT . POSTITIVE ANTERIOR DRAWER SIGN L>R. SLOW TO RISE TO STANDING POSITION . GAIT WITH LEFT LEG LIMP NOTED.. ASSESSMENTS PAIN IN LEFT KNEE - M25.562 (PRIMARY) PAIN IN RIGHT KNEE - M25.561 PRIMARY OSTEOARTHRITIS OF BOTH KNEES - M17.0 TREATMENT PAIN IN LEFT KNEE START INDOMETHACIN CAPSULE, 50 MG, 1 CAPSULE WITH FOOD OR MILK, ORALLY, TWICE A DAY, 30 DAY(S), 60, REFILLS 1 NOTES: DO INTERNET SEARCH FOR KNEE PHYSICAL THERAPY. STOP IBU PROFMEME. WILL DISCUSS OPTIONS FOR INJECTION TO KNEES, HOWEVER DISCUSSED WITH PT THAT MRI WILL BE ESSENTIAL FOR SAFE CONTINUED INTERVENTIONAL THERAPY TO THIS AREA. WE CAN NOT DO THIS WITHOUT A TRIAL OF PHYSICAL THERAPY. OTHERS REFILL GABAPENTIN CAPSULE, 300 MG, 1 CAPSULE, ORALLY WORKERS COMPENSATION, FOUR TIMES DAILY MDD4, 30 DAY(S), 120, REFILLS 2 REFILL ZANAFLEX TABLET, 4 MG, 1 TABLET NEEDED, ORALLY, BEFORE BEDTIME MAY REPEAT IN 4 HRS MDD2, 30 DAY(S), 60, REFILLS 2 PROCEDURE CODES FA211 ESTABILISHED PATIENT [facility] CHARGE DISPOSITION & COMMUNICATION FOLLOW UP 6 WEEKS (REASON: [facility]- KNEES) ELECTRONICALLY SIGNED BY MARIE [place] ON 06/11/2017 AT 05:58 PM EDT DISCLAIMER : THIS IS A VISIT SUMMARY EXTRACTED FROM THE [employer] CHART. IT IS NOT A COPY OF THE [employer] PROGRESS NOTE. VIJI
== END ==
LOC: M PAIN 10:15
PROVIDERS: ATTEND Nurse Practitioner Family
DX: G89.29 Other chronic pain (principal); M17.0 Bilateral primary osteoarthritis of knee; E78.2 Mixed hyperlipidemia; F43.10 Post-traumatic stress disorder, unspecified; F31.9 Bipolar disorder, unspecified; F41.1 Generalized anxiety disorder; G43.709 Chronic migraine without aura, not intractable, without status migrainosus; E55.9 Vitamin D deficiency, unspecified; E53.8 Deficiency of other specified B group vitamins; F11.20 Opioid dependence, uncomplicated; J30.89 Other allergic rhinitis; Z79.82 Long term (current) use of aspirin; Z79.1 Long term (current) use of non-steroidal anti-inflammatories (NSAID); Z79.899 Other long term (current) drug therapy; Z87.891 Personal history of nicotine dependence

== ENCOUNTER → 2017-05-14 | Outpatient (CLI) | payer OTHER ==
--- NOTE | 2017-05-14 13:05 | ECGEPIP ---
Stationary ECG Study [facility] Test Date: 2017-05-14 Pat Name: ROGERIO MEDINA Department: Room: - Gender: M [employer]: [facility] : 1965 Requested By: Peg MORENOP-C Order Number: [id number] Reading MD: Alonzo Han Measurements Intervals [place] Rate: 65 P: 61 ND: 210 QRS: 33 QRSD: 95 T: 38 QT: 365 QTc: 382 Interpretive Statements SINUS RHYTHM WITH FIRST DEGREE AV BLOCK POSSIBLE RIGHT VENTRICULAR CONDUCTION DELAY Electronically Signed On 05-14-2017 13:05:15 EDT by Alonzo Han
== END ==
LOC: M EKG 10:52
PROVIDERS: ATTEND Nurse Practitioner Family
DX: M51.16 Intervertebral disc disorders with radiculopathy, lumbar region (principal); M47.814 Spondylosis without myelopathy or radiculopathy, thoracic region; M47.816 Spondylosis without myelopathy or radiculopathy, lumbar region; Z79.891 Long term (current) use of opiate analgesic

== ENCOUNTER → 2017-05-14 | Outpatient (CLI) | payer OTHER ==
--- NOTE | 2017-06-10 01:22 | ECWPNPC ---
PATIENT NAME: ROGERIO MEDINA : 1965 GENDER: MALE VISIT DATE: 05/14/2017 DISCHARGE DATE: 05/14/17 1032 VISIT LOCKED DATE TIME: PHYSICIAN: SEBLE THOMAS RESOURCE: SEBLE THOMAS REASON FOR APPOINTMENT 1. BACK W/C HISTORY OF PRESENT ILLNESS HISTORY OF PRESENT ILLNESS: PAIN THE PATIENT DESCRIBES THE PAIN... FALL RISK SCREENING: SCREENING :NO FALLS IN THE PAST YEAR TODAY'S VISIT: NOTES: WC FOLLOWUP FOR THOACIC AND LOW BACK. RATES PAIN TODAY 9/10. DESCRIBES PAIN CONSTANT, ACHING, SHARP AND STABBING AND SHOOTING. NOTES AREA IS TENDER AND THROBBING. IS NOTING THE WORST PAIN PAIN IS IN LOW PAIN WITH RADIATION TO BOTH BUTTUCK AND HIP REGIONS WITH RADIATING PAIN INTO RIGHT LEG TO FOOT. THIS IS SHARP SHOOTING AND IS PRODUCING NUMBNESS. RIGHT LEG IS WEAKER. STATES LEGS HAVE BEEN GIVING OUT IN CONJUNCTION WITH MARKED INCREASE IN PAIN. HAS BEEN WAITING FOR AUTH FOR LESB. HAS NUMBNESS IN RIGHT FOOT GREAT TO AND OVER DORSUM OF FOOT TO INSTEP.. CURRENT MEDICATIONS TAKING HYDROXYZINE HCL 25MG TABLET 1 TABLET BY MOUTH QID PRN TAKING CYANOCOBALAMIN 1000 MCG TABLET 1 TABLET ORALLY EVERY OTHER DAY FOR B12 DEFICIENCY TAKING METRONIDAZOLE 0.75 % CREAM 1 APPLICATION A THIN LAYER TO AFFECTED AREA EXTERNALLY TWICE A DAY FOR ROSACEA TAKING CLINDAMYCIN PHOSPHATE 1 % SOLUTION 1 DROP TO RASH ON CHEST, BACK AND LEGS EXTERNALLY BID PRN TAKING CLOTRIMAZOLE-BETAMETHASONE 1-0.05 % CREAM 1 APPLICATION TO BACK/CHEST/LEGS EXTERNALLY TWICE A DAY PRN FOLLICULITIS TAKING VITAMIN D 400 UNIT TABLET 1 CAPSULE ORALLY ONCE A DAY TAKING ASPIR-81 81 MG TABLET DELAYED RELEASE 1 TABLET ORALLY ONCE A DAY TAKING EVZIO 0.4 MG/0.4ML SOLUTION AUTO-INJECTOR DIRECTED INJECTION FOR EMERGENCY USE ONLY TAKING PRAVASTATIN SODIUM 10 MG TABLET 1 TABLET ORALLY ONCE A DAY TAKING BUPROPION HCL ER (XL) 450 MG TABLET EXTENDED RELEASE 24 HOUR TAKE ONE TABLET BY MOUTH EVERY MORNING ORALLY ONCE A DAY TAKING PRAZOSIN HCL 1 MG CAPSULE 2 CAPSULE ORALLY QHS MDD=2 TAKING ABILIFY 20 MG TABLET 1 TABLET ORALLY ONCE A DAY TAKING SUMATRIPTAN SUCCINATE 100 MG TABLET 1 TABLET NEEDED, REPEAT ONCE AFTER 2 HOURS PRN ORALLY ONCE A DAY MDD=2 MAX 4 MIGRAINES/MONTH TAKING ADDERALL 20 MG TABLET 1 TAB(S) ORALLY DAILY TAKING DIAZEPAM 10 MG TABLET 1 TABLET NEEDED ORALLY TWICE DAILY PRN MDD=2 TAKING ADDERALL XR 15 MG CAPSULE EXTENDED RELEASE 24 HOUR (SCHEDULE II DRUG) TAKE ONE CAPSULE BY MOUTH EVERY MORNING FOR ADHD MAXIMUM DAILY DOSE 1 CAPSULE ORAL TAKING SYSTANE ULTRA 0.4-0.3 % SOLUTION INSTILL 1 DROP IN EACH EYE FOUR TIMES A DAY OR NEEDED OPHTHALMIC TAKING EPIPEN 2-PIERCE 0.3 MG/0.3ML DEVICE DIRECTED INJECTION ONCE FOR ALLERGIC REACTION TAKING COLACE 100 MG CAPSULE 2 CAPSULES ORALLY FOUR TIMES A DAY MDD8 TAKING ZANAFLEX 4 MG TABLET 1 TABLET NEEDED ORALLY BEFORE BEDTIME MAY REPEAT IN 4 HRS MDD2 TAKING LIDODERM 5 % PATCH 3 PATCH TO INTACT SKIN REMOVE AFTER 12 HOURS EXTERNALLY 2 THORAX1 BACK APPLY TO PAINFUL AREA OF BACK ON 12 HRS, OFF 12 HRS TAKING VOLTAREN 1 % GEL ONE APPLICATION EXTERNALLY EVERY 6 HOURS NEEDED TO LOW BACK TAKING GABAPENTIN 300 MG CAPSULE 1 CAPSULE ORALLY WORKERS COMPENSATION FOUR TIMES DAILY MDD4 TAKING ZYRTEC 10 MG TABLET 1 TABLET ORALLY ONCE A DAY TAKING SODIUM FLUORIDE 1.1 MG TABLET 1 TABLET AT BEDTIME ORALLY ONCE A DAY TAKING IBUPROFEN 800 MG TABLET 1 TABLET ORALLY WITH FOOD THREE TIMES A DAY TAKING METHADONE HCL 10 MG TABLET 1 TABLET ORALLY 1 EVERY 6 HRS NEEDED DAILY FOR PAIN MDD4 TAKING PREVACID 30 MG CAPSULE DELAYED RELEASE 1 CAPSULE BEFORE A MEAL ORALLY DAILY TAKING TESTOSTERONE CYPIONATE 200 MG/ML SOLUTION 1.75 ML INTRAMUSCULAR INJECTED MONTHLY (MDD: 1.75 ML/MONTH) NOT-TAKING AZELASTINE HCL 0.05 % SOLUTION 1 DROP INTO AFFECTED EYE OPHTHALMIC TWICE A DAY PRN ALLERGIES NOT-TAKING MULTIVITAMINS MVI TABLET 1 TAB(S) ORALLY DAILY FOR GENERAL HEALTH NOT-TAKING ADDERALL 15 MG TABLET 1 TABLET AT LUNCHTIME ORALLY ONCE A DAY NOT-TAKING ARTIFICIAL TEARS 0.4 % SOLUTION 1 DROP INTO EACH EYE OPHTHALMIC UP TO 6 TIMES DAILY PRN DRY EYES, NOTES: 01-18-171499 NOT-TAKING MIRTAZAPINE 45 MG TABLET 1 TABLET BEFORE BEDTIME IN THE EVENING ORALLY ONCE A DAY NOT-TAKING DEPAKOTE ER 250 MG TABLET EXTENDED RELEASE 24 HOUR 1 TAB(S) ORALLY DAILY NOT-TAKING ERYTHROMYCIN 2 % PAD 1 PAD TO FACE NEEDED EXTERNALLY TWICE A DAY FOR ROSACEA NOT-TAKING ALBUTEROL SULFATE HFA 108 (90 BASE) MCG/ACT AEROSOL SOLUTION 2 PUFFS INHALATION ONCE DAILY NEEDED, NOTES: NONE RECENTLY MEDICATION LIST REVIEWED AND RECONCILED WITH THE PATIENT PAST MEDICAL HISTORY CHRONIC BACK PAIN H/O T8 FRACTURE AND T6-7 DISC HERNIATION ASTHMA ALLERGIC RHINITIS DEPRESSION/BIPOLAR DISORDER ROSACEA/FOLLICULIITS H/O KIDNEY STONES GASTROPARESIS INSOMNIA LOW TESOSTERONE HERNIATED DISC L3-L5, HIGH CHOLESTEROL REFLUX ALLERGIES ENVIRONMENTAL: ITCHY EYES, WHEEZING, SNEEZING: ALLERGY SOCIAL HISTORY GENERAL: TOBACCO USE ARE YOU A:FORMER SMOKER HOW LONG HAS IT BEEN SINCE YOU LAST SMOKED?> 10 YEARS RECREATIONAL DRUG USE DRUG USE?NO CAFFEINE CAFFEINE USE?YES HOW OFTEN AND HOW MUCH? 2 CUPS PER DAY HOAHAOISM [id number] NONE LANGUAGE LANGUAGES SPOKEN:BULGARIAN LEARNING BARRIERS / SPECIAL NEEDS BARRIERS TO LEARNING?NO HEARING IMPAIRED?NO VISION IMPAIRED?YES COGNITIVELY IMPAIRED?NO :CORRECTIVE LENSES READINESS TO LEARN?YES LEARNING PREFERENCES?NO LEARNING CAPABILITIES PRESENT?YES EMOTIONAL BARRIERS?NO SPECIAL DEVICES?NO ARABIC LINGUIST NEEDED?NO PAIN CLINIC PFS, CLERGY, PUBLIC HEALTH REFERRALS PFS REFERRAL NEEDED?NO CLERGY REFERRAL NEEDED?NO PUBLIC HEALTH REFERRAL NEEDED?NO WAS THE PROVIDER NOTIFIED OF ANY PERTINENT INFO?YES HAS THE PATIENT BEEN EDUCATED REGARDING HIS/HER PLAN OF CARE?YES HAS THE PATIENT BEEN EDUCATED REGARDING PAIN, THE RISK FOR PAIN, THE IMPORTANCE OF EFFECTIVE PAIN MANAGEMENT, AND THE PAIN ASSESSMENT PROCESS?YES REVIEWED BY: TORO. PATIENT: ____. REVIEW OF SYSTEMS REVIEWED BY: PROVIDER: SEBLE BUCKNER . CONSTITUTIONAL: ANY CHANGE IN YOUR MEDICAL CONDITION? NO . CHILLS NO . FEVER NO . INFECTION: DO YOU HAVE NEW INFECTIONS? NO . DO YOU HAVE HISTORY OF MRSA? NO . MUSCULOSKELETAL: ANY NEW PATTERNS OF PAIN OR NUMBNESS? NO . GASTROENTEROLOGY: ANY NEW CHANGE IN BOWEL CONTROL? NO . GENITOURINARY: ANY NEW CHANGE IN BLADDER CONTROL? NO . IS THERE A CHANCE YOU COULD BE ? NO . HEMATOLOGY/LYMPH: DO YOU TAKE ANY BLOOD THINNERS? (FOR EXAMPLE- COUMADIN, PLAVIX, AGGRENOX, PLATEL, PRADAXA, OR XARELTO) NO . WHEN WAS YOUR LAST DOSE? DATE: TIME: . NEUROLOGY: HAVE YOU FALLEN IN THE PAST 6 MONTHS? NO . ANY NEW EXTREMITY NUMBNESS OR WEAKNESS? NO . CARDIOLOGY: DO YOU HAVE A PACEMAKER OR DEFIBRILLATOR? NO . RESPIRATORY: HAVE YOU BEEN SICK IN THE PAST WEEK? NO . FEVER NO . FLU LIKE SYMPTOMS? NO . COUGH NO . INTEGUMENTARY: DO YOU HAVE ANY RASHES OR OPEN SORES? NO . ALLERGIC/IMMUNO: ARE YOU ALLERGIC TO SHELLFISH OR IV DYE? NO . ANY NEW ALLERGIES? NO . PSYCHIATRIC: DO YOU HAVE THOUGHTS OF HURTING YOURSELF OR SOMEONE ELSE? NO . ARE YOU ABUSED, NEGLECTED, OR IN AN UNSAFE ENVIRONMENT? NO . ENDOCRINOLOGY: ARE YOU DIABETIC? NO . OTHER: DO YOU NEED ANY PRESCRIPTIONS? NO . IF YES, PLEASE LIST: CYMBALTA, METHADONE, OXTCODONE . ANY NEW PROBLEMS WITH YOUR MEDICATIONS? NO . WHEN DID YOU LAST EAT? ____ . WHEN DID YOU LAST DRINK? ____ . WHAT DID YOU LAST DRINK? ____ . NAME OF PERSON DRIVING YOU HOME? ____ . DO YOU HAVE ANY OTHER QUESTIONS OR CONCERNS NO . VITAL SIGNS WT 168 LBS, HT 68 IN, BMI 25.54 INDEX, BP 112/67 MM HG, HR 75 /MIN, RR 16 /MIN, TEMP 99.1 F, OXYGEN SAT % 99%, SAFE IN ENV? (Y/N) Y, NA INITIALS DC 09:06, REVIEWED BY: TORO. EXAMINATION GENERAL EXAMINATION: PSYCHALERT , ORIENTED X 3 , APPROPRIATE MOOD AND AFFECT , GOOD EYE CONTACT. LUNGS:CLEAR TO AUSCULTATION BILATERALLY, DECREASED AIR ENTRY AT BASES. HEART:HEART RATE REGULAR, NORMAL S1S2. MUSCULOSKELETAL:POINT TENDERNESS OVER LUMBAR SPINOUS PROCESSES AND AT THE RIGHT SIJ, RIGHT PIRIFORMIS REGION. UNABLE TO SIT SQUARELY ON THE CHAIR. BILATERAL QUADRICEPS WEAKNESS NOTED, RIGHT GREATER THAN LEFT. . STIFF WHEN RISING TO STANDING POSITION. GAIT WIDED BASED. MILD TENDERNESS OVER MID THORACIC SPINOUS PROCESSES AND , TRIGGER POINTS AND TIGHT FIBROUS BANDS IDENTIFIED ALOG LEFT SCAPULA. 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 THIS PROCEDURE HAS PROVIDED PAIN RELIEF AND HE WOULD LIKE TO REPEAT IT. HE HAS NOT REQUIRED THIS INTERVENTION IN OVER 10 MONTHSEKG FOR METHADONE MANAGEMENT - QTC MEASUREMENT. CLINICAL NOTES: ISTOP REGISTRY REVIEWED AND DEMNOSTRATES COMPLLIANCE. BRINGS IN MEDICATIONS WHICH IS APPROPRIATE FOR WHAT WAS DISPENSED. RECENT URINE TOXICOLOGY REVIEWED. NO UNAUTHORIZED MEDICATIONS. NO ILLICIT SUBSTANCES AND PRESCRIBED MEDICATIONS WERE PRESENT. PROCEDURES PN WORKMANS' COMP OPINION IN YOUR OPINION, WAS THE INCIDENT THAT THE PATIENT DESCRIBED THE COMPETENT MEDICAL CAUSE OF THIS INJURY/ILLNESS? YES ARE THE PATIENT'S COMPLAINTS CONSISTENT WITH HIS/HER HISTORY OF THE INJURY/ILLNESS? YES IS THE PATIENT'S HISTORY OF THE INJURY/ILLNESS CONSISTENT WITH YOUR OBJECTIVE FINDING? YES WHAT IS THE PERCENTAGE OF TEMPORARY IMPAIRMENT? MARKED = 75% IS THE PATIENT WORKING? NO DOCTOR ON SITE: JENNIFER BACON MD PROCEDURE CODES FA211 ESTABILISHED PATIENT [facility] FACILITY CHARGE DISPOSITION & COMMUNICATION FOLLOW UP 6 WEEKS FOR WC- BACK/THORACIC (REASON: WC CHECK AUTH INTRALAMINAR LUMBAR EPIDURAL) ELECTRONICALLY SIGNED BY MARIE [place] ON 06/09/2017 AT 09:01 AM EDT DISCLAIMER : THIS IS A VISIT SUMMARY EXTRACTED FROM THE [employer] CHART. IT IS NOT A COPY OF THE [employer] PROGRESS NOTE. VIJI
== END ==
LOC: M PAIN 09:00
PROVIDERS: ATTEND Nurse Practitioner Family
DX: M46.1 Sacroiliitis, not elsewhere classified (principal); M47.814 Spondylosis without myelopathy or radiculopathy, thoracic region; M47.816 Spondylosis without myelopathy or radiculopathy, lumbar region; M47.817 Spondylosis without myelopathy or radiculopathy, lumbosacral region; M51.16 Intervertebral disc disorders with radiculopathy, lumbar region; M51.17 Intervertebral disc disorders with radiculopathy, lumbosacral region; M54.5 Low back pain; G89.29 Other chronic pain; Z79.891 Long term (current) use of opiate analgesic; Z79.82 Long term (current) use of aspirin; Z87.891 Personal history of nicotine dependence

== ENCOUNTER → 2017-06-25 | Outpatient (CLI) | payer OTHER ==
--- NOTE | 2017-07-26 01:00 | ECWPNPC ---
PATIENT NAME: ROGERIO MEDINA : 1965 GENDER: MALE VISIT DATE: 06/25/2017 DISCHARGE DATE: 06/25/17 1036 VISIT LOCKED DATE TIME: PHYSICIAN: SEBLE THOMAS RESOURCE: SEBLE THOMAS REASON FOR APPOINTMENT 1. [facility]/KNEES HISTORY OF PRESENT ILLNESS HISTORY OF PRESENT ILLNESS: PAIN THE PATIENT DESCRIBES THE PAIN... FALL RISK SCREENING: SCREENING :NO FALLS IN THE PAST YEAR TODAY'S VISIT: NOTES: [facility] FOLLOW UP - KNEES- HAD TO STOP INDOMETHECIN DUE TO LOOSE STOOLS. HAS RESTARTED IBUPROFEN AND HAS FOUND THIS WELL INCREASED WALKING HAS DECREASED PAIN IN KNEES. RATES PAIN TODAY IN KNEES 10/09. . CURRENT MEDICATIONS TAKING HYDROXYZINE HCL 25MG TABLET 1 TABLET BY MOUTH QID PRN TAKING CYANOCOBALAMIN 1000 MCG TABLET 1 TABLET ORALLY EVERY OTHER DAY FOR B12 DEFICIENCY TAKING VITAMIN D 400 UNIT TABLET 1 CAPSULE ORALLY ONCE A DAY TAKING ASPIR-81 81 MG TABLET DELAYED RELEASE 1 TABLET ORALLY ONCE A DAY TAKING EVZIO 0.4 MG/0.4ML SOLUTION AUTO-INJECTOR DIRECTED INJECTION FOR EMERGENCY USE ONLY TAKING PRAVASTATIN SODIUM 10 MG TABLET 1 TABLET ORALLY ONCE A DAY TAKING PRAZOSIN HCL 1 MG CAPSULE 2 CAPSULE ORALLY QHS MDD=2 TAKING ABILIFY 10 MG TABLET 1 TABLET ORALLY ONCE A DAY TAKING SUMATRIPTAN SUCCINATE 100 MG TABLET 1 TABLET NEEDED, REPEAT ONCE AFTER 2 HOURS PRN ORALLY ONCE A DAY MDD=2 MAX 4 MIGRAINES/MONTH TAKING ADDERALL 20 MG TABLET 1 TAB(S) ORALLY DAILY TAKING DIAZEPAM 10 MG TABLET 1 TABLET NEEDED ORALLY TWICE DAILY PRN MDD=2 TAKING EPIPEN 2-PIERCE 0.3 MG/0.3ML DEVICE DIRECTED INJECTION ONCE FOR ALLERGIC REACTION TAKING LIDODERM 5 % PATCH 3 PATCH TO INTACT SKIN REMOVE AFTER 12 HOURS EXTERNALLY 2 THORAX1 BACK APPLY TO PAINFUL AREA OF BACK ON 12 HRS, OFF 12 HRS TAKING VOLTAREN 1 % GEL ONE APPLICATION EXTERNALLY EVERY 6 HOURS NEEDED TO LOW BACK TAKING ZYRTEC 10 MG TABLET 1 TABLET ORALLY ONCE A DAY TAKING SODIUM FLUORIDE 1.1 MG TABLET 1 TABLET AT BEDTIME ORALLY ONCE A DAY TAKING GABAPENTIN 300 MG CAPSULE 1 CAPSULE ORALLY WORKERS COMPENSATION FOUR TIMES DAILY MDD4 TAKING ZANAFLEX 4 MG TABLET 1 TABLET NEEDED ORALLY BEFORE BEDTIME MAY REPEAT IN 4 HRS MDD2 TAKING TESTOSTERONE CYPIONATE 200 MG/ML SOLUTION 1.75 ML INTRAMUSCULAR INJECTED MONTHLY (MDD: 1.75 ML/MONTH) CODE F TAKING CITALOPRAM HYDROBROMIDE 10 MG TABLET 1 TABLET ORALLY ONCE A DAY TAKING ARTIFICIAL TEARS 0.4 % SOLUTION 1 DROP INTO EACH EYE OPHTHALMIC UP TO 6 TIMES DAILY PRN DRY EYES, NOTES: [id number] TAKING DEPAKOTE ER 500 MG TABLET EXTENDED RELEASE 24 HOUR 1 TAB(S) ORALLY DAILY TAKING ALBUTEROL SULFATE HFA 108 (90 BASE) MCG/ACT AEROSOL SOLUTION 2 PUFFS INHALATION ONCE DAILY NEEDED, NOTES: NONE RECENTLY TAKING METHADONE HCL 10 MG TABLET 1 TABLET ORALLY 1 EVERY 6 HRS DAILY FOR PAIN MDD4 CHRONIC PAIN TAKING IBUPROFEN 800 MG TABLET 1 TABLET ORALLY WITH FOOD THREE TIMES A DAY TAKING PREVACID 30 MG CAPSULE DELAYED RELEASE 1 CAPSULE BEFORE A MEAL ORALLY DAILY TAKING COLACE 100 MG CAPSULE 2 CAPSULES ORALLY FOUR TIMES A DAY MDD8 TAKING METRONIDAZOLE 0.75 % CREAM 1 APPLICATION A THIN LAYER TO AFFECTED AREA EXTERNALLY TWICE A DAY FOR ROSACEA TAKING CLINDAMYCIN PHOSPHATE 1 % SOLUTION 1 DROP TO RASH ON CHEST, BACK AND LEGS EXTERNALLY BID PRN TAKING CLOTRIMAZOLE-BETAMETHASONE 1-0.05 % CREAM 1 APPLICATION TO BACK/CHEST/LEGS EXTERNALLY TWICE A DAY PRN FOLLICULITIS TAKING AZELASTINE HCL 0.05 % SOLUTION 1 DROP INTO AFFECTED EYE OPHTHALMIC TWICE A DAY PRN ALLERGIES MEDICATION LIST REVIEWED AND RECONCILED WITH THE PATIENT PAST MEDICAL HISTORY CHRONIC BACK PAIN H/O T8 FRACTURE AND T6-7 DISC HERNIATION ASTHMA ALLERGIC RHINITIS DEPRESSION/BIPOLAR DISORDER ROSACEA/FOLLICULIITS H/O KIDNEY STONES GASTROPARESIS INSOMNIA LOW TESOSTERONE HERNIATED DISC L3-L5, HIGH CHOLESTEROL REFLUX ALLERGIES ENVIRONMENTAL: ITCHY EYES, WHEEZING, SNEEZING: ALLERGY SOCIAL HISTORY GENERAL: TOBACCO USE ARE YOU A:FORMER SMOKER HOW LONG HAS IT BEEN SINCE YOU LAST SMOKED?> 10 YEARS RECREATIONAL DRUG USE DRUG USE?NO CAFFEINE CAFFEINE USE?YES HOW OFTEN AND HOW MUCH? 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 PATIENT: ____. REVIEW OF SYSTEMS REVIEWED BY: PROVIDER: SEBLE BUCKNER . CONSTITUTIONAL: ANY CHANGE IN YOUR MEDICAL CONDITION? NO . CHILLS NO . FEVER NO . INFECTION: DO YOU HAVE NEW INFECTIONS? NO . DO YOU HAVE HISTORY OF MRSA? NO . MUSCULOSKELETAL: ANY NEW PATTERNS OF PAIN OR NUMBNESS? NO . GASTROENTEROLOGY: ANY NEW CHANGE IN BOWEL CONTROL? NO . GENITOURINARY: ANY NEW CHANGE IN BLADDER CONTROL? NO . IS THERE A CHANCE YOU COULD BE ? NO . HEMATOLOGY/LYMPH: DO YOU TAKE ANY BLOOD THINNERS? (FOR EXAMPLE- COUMADIN, PLAVIX, AGGRENOX, PLATEL, PRADAXA, OR XARELTO) NO . WHEN WAS YOUR LAST DOSE? DATE: TIME: . NEUROLOGY: HAVE YOU FALLEN IN THE PAST 6 MONTHS? NO . ANY NEW EXTREMITY NUMBNESS OR WEAKNESS? NO . CARDIOLOGY: DO YOU HAVE A PACEMAKER OR DEFIBRILLATOR? NO . RESPIRATORY: HAVE YOU BEEN SICK IN THE PAST WEEK? NO . FEVER NO . FLU LIKE SYMPTOMS? NO . COUGH NO . INTEGUMENTARY: DO YOU HAVE ANY RASHES OR OPEN SORES? NO . ALLERGIC/IMMUNO: ARE YOU ALLERGIC TO SHELLFISH OR IV DYE? NO . ANY NEW ALLERGIES? NO . PSYCHIATRIC: DO YOU HAVE THOUGHTS OF HURTING YOURSELF OR SOMEONE ELSE? NO . ARE YOU ABUSED, NEGLECTED, OR IN AN UNSAFE ENVIRONMENT? NO . ENDOCRINOLOGY: ARE YOU DIABETIC? NO . OTHER: DO YOU NEED ANY PRESCRIPTIONS? NO . IF YES, PLEASE LIST: ____ . ANY NEW PROBLEMS WITH YOUR MEDICATIONS? NO . WHEN DID YOU LAST EAT? ____ . WHEN DID YOU LAST DRINK? ____ . WHAT DID YOU LAST DRINK? ____ . NAME OF PERSON DRIVING YOU HOME? ____ . DO YOU HAVE ANY OTHER QUESTIONS OR CONCERNS YES, SINCE DOING MORE WALKING AND MORE ACTIVE, KNEES ARE DOING BETTER. . VITAL SIGNS WT 162.0 LBS, HT 68 IN, BMI 24.63 INDEX, BP 108/65 MM HG, HR 65 /MIN, RR 16 /MIN, TEMP 97.9 F, OXYGEN SAT % 98%, NA INITIALS TL [id number], REVIEWED BY: CARINA. EXAMINATION GENERAL EXAMINATION: MUSCULOSKELETAL:RISES SLOWLY TO STANDING POSITION POSTURE STOOPED. GAIT WIDE BASED. JOINTS:TENDER OVER MEDIAL ASPECT BOTH KNEES WITH PALPATION. ASSESSMENTS PAIN IN LEFT KNEE - M25.562 (PRIMARY) PAIN IN RIGHT KNEE - M25.561 PRIMARY OSTEOARTHRITIS OF BOTH KNEES - M17.0 TREATMENT PAIN IN LEFT KNEE NOTES: KEEP WAKING. CONTINUE IBUPROFENDISPOSE OF INDOMETHICIN. PROCEDURE CODES FA211 ESTABILISHED PATIENT [facility] CHARGE DISPOSITION & COMMUNICATION FOLLOW UP CALL IF NEEDED FOR KNEE PAIN (REASON: [facility] - KNEES) ELECTRONICALLY SIGNED BY MARIE [place] ON 07/25/2017 AT 08:26 PM EST DISCLAIMER : THIS IS A VISIT SUMMARY EXTRACTED FROM THE [employer] CHART. IT IS NOT A COPY OF THE [employer] PROGRESS NOTE. VIJI
== END ==
LOC: M PAIN 08:45
PROVIDERS: ATTEND Nurse Practitioner Family
DX: M25.562 Pain in left knee (principal); M25.561 Pain in right knee; M17.0 Bilateral primary osteoarthritis of knee; Z79.82 Long term (current) use of aspirin; G89.29 Other chronic pain; M54.5 Low back pain; E29.1 Testicular hypofunction; E55.9 Vitamin D deficiency, unspecified; E53.8 Deficiency of other specified B group vitamins; F41.1 Generalized anxiety disorder; Z79.899 Other long term (current) drug therapy; Z87.891 Personal history of nicotine dependence; J30.9 Allergic rhinitis, unspecified

== ENCOUNTER → 2017-06-25 | Outpatient (CLI) | payer OTHER ==
--- NOTE | 2017-07-26 01:00 | ECWPNPC ---
PATIENT NAME: ROGERIO MEDINA : 1965 GENDER: MALE VISIT DATE: 06/25/2017 DISCHARGE DATE: 06/25/17 1033 VISIT LOCKED DATE TIME: PHYSICIAN: SEBLE THOMAS RESOURCE: SEBLE THOMAS REASON FOR APPOINTMENT 1. W/C BACK HISTORY OF PRESENT ILLNESS HISTORY OF PRESENT ILLNESS: PAIN THE PATIENT DESCRIBES THE PAIN... FALL RISK SCREENING: SCREENING :NO FALLS IN THE PAST YEAR TODAY'S VISIT: NOTES: WC FOLLOWUP FOR MID THORACIC PAIN/LOW BACK PAIN. RATES PAIN TODAY 8/10. DESCRIBES PAIN CONSTANT, ACHING, SHARP AND STABBING, SORE AND SHOOTING. PAIN IS CENTERED OVER MIDTHORACIC REGION LEFT SIDE> RIGHT, AND ACROSS THE LOW BACK WITH RADIATION TO RIGHT LEG. BOTH AREAS CARE CURRRENTLY EQUAL IN INTENSITY. HAS JUST RECEIVED AUTH FOR LESB AND IS LOOKING FORWARD TO THIS. THIS HAS DECREASED PAIN IN THE PAST WITH PAIN RADIATING TO THE LEG. IS HAVING SHARP STABBING PAIN TO RIGHT MID THIGH. NO RECENT FALLS. REPORTS MEDS ARE HELPFUL TO KEEP PAIN CONTROLLED. ACTIVITY AT HOME REMAINS LINITED BY PAIN IN LOW BACK. . CURRENT MEDICATIONS TAKING HYDROXYZINE HCL 25MG TABLET 1 TABLET BY MOUTH QID PRN TAKING CYANOCOBALAMIN 1000 MCG TABLET 1 TABLET ORALLY EVERY OTHER DAY FOR B12 DEFICIENCY TAKING VITAMIN D 400 UNIT TABLET 1 CAPSULE ORALLY ONCE A DAY TAKING ASPIR-81 81 MG TABLET DELAYED RELEASE 1 TABLET ORALLY ONCE A DAY TAKING EVZIO 0.4 MG/0.4ML SOLUTION AUTO-INJECTOR DIRECTED INJECTION FOR EMERGENCY USE ONLY TAKING PRAVASTATIN SODIUM 10 MG TABLET 1 TABLET ORALLY ONCE A DAY TAKING PRAZOSIN HCL 1 MG CAPSULE 2 CAPSULE ORALLY QHS MDD=2 TAKING ABILIFY 10 MG TABLET 1 TABLET ORALLY ONCE A DAY TAKING SUMATRIPTAN SUCCINATE 100 MG TABLET 1 TABLET NEEDED, REPEAT ONCE AFTER 2 HOURS PRN ORALLY ONCE A DAY MDD=2 MAX 4 MIGRAINES/MONTH TAKING ADDERALL 20 MG TABLET 1 TAB(S) ORALLY DAILY TAKING DIAZEPAM 10 MG TABLET 1 TABLET NEEDED ORALLY TWICE DAILY PRN MDD=2 TAKING EPIPEN 2-PIERCE 0.3 MG/0.3ML DEVICE DIRECTED INJECTION ONCE FOR ALLERGIC REACTION TAKING COLACE 100 MG CAPSULE 2 CAPSULES ORALLY FOUR TIMES A DAY MDD8 TAKING LIDODERM 5 % PATCH 3 PATCH TO INTACT SKIN REMOVE AFTER 12 HOURS EXTERNALLY 2 THORAX1 BACK APPLY TO PAINFUL AREA OF BACK ON 12 HRS, OFF 12 HRS TAKING VOLTAREN 1 % GEL ONE APPLICATION EXTERNALLY EVERY 6 HOURS NEEDED TO LOW BACK TAKING ZYRTEC 10 MG TABLET 1 TABLET ORALLY ONCE A DAY TAKING SODIUM FLUORIDE 1.1 MG TABLET 1 TABLET AT BEDTIME ORALLY ONCE A DAY TAKING IBUPROFEN 800 MG TABLET 1 TABLET ORALLY WITH FOOD THREE TIMES A DAY TAKING PREVACID 30 MG CAPSULE DELAYED RELEASE 1 CAPSULE BEFORE A MEAL ORALLY DAILY TAKING GABAPENTIN 300 MG CAPSULE 1 CAPSULE ORALLY WORKERS COMPENSATION FOUR TIMES DAILY MDD4 TAKING ZANAFLEX 4 MG TABLET 1 TABLET NEEDED ORALLY BEFORE BEDTIME MAY REPEAT IN 4 HRS MDD2 TAKING METHADONE HCL 10 MG TABLET 1 TABLET ORALLY 1 EVERY 6 HRS DAILY FOR PAIN MDD4 CHRONIC PAIN TAKING TESTOSTERONE CYPIONATE 200 MG/ML SOLUTION 1.75 ML INTRAMUSCULAR INJECTED MONTHLY (MDD: 1.75 ML/MONTH) CODE F TAKING CITALOPRAM HYDROBROMIDE 10 MG TABLET 1 TABLET ORALLY ONCE A DAY TAKING ARTIFICIAL TEARS 0.4 % SOLUTION 1 DROP INTO EACH EYE OPHTHALMIC UP TO 6 TIMES DAILY PRN DRY EYES, NOTES: [id number] TAKING DEPAKOTE ER 500 MG TABLET EXTENDED RELEASE 24 HOUR 1 TAB(S) ORALLY DAILY TAKING ALBUTEROL SULFATE HFA 108 (90 BASE) MCG/ACT AEROSOL SOLUTION 2 PUFFS INHALATION ONCE DAILY NEEDED, NOTES: NONE RECENTLY NOT-TAKING METRONIDAZOLE 0.75 % CREAM 1 APPLICATION A THIN LAYER TO AFFECTED AREA EXTERNALLY TWICE A DAY FOR ROSACEA NOT-TAKING CLINDAMYCIN PHOSPHATE 1 % SOLUTION 1 DROP TO RASH ON CHEST, BACK AND LEGS EXTERNALLY BID PRN NOT-TAKING CLOTRIMAZOLE-BETAMETHASONE 1-0.05 % CREAM 1 APPLICATION TO BACK/CHEST/LEGS EXTERNALLY TWICE A DAY PRN FOLLICULITIS NOT-TAKING AZELASTINE HCL 0.05 % SOLUTION 1 DROP INTO AFFECTED EYE OPHTHALMIC TWICE A DAY PRN ALLERGIES DISCONTINUED BUPROPION HCL ER (XL) 450 MG TABLET EXTENDED RELEASE 24 HOUR TAKE ONE TABLET BY MOUTH EVERY MORNING ORALLY ONCE A DAY DISCONTINUED ADDERALL XR 15 MG CAPSULE EXTENDED RELEASE 24 HOUR (SCHEDULE II DRUG) TAKE ONE CAPSULE BY MOUTH EVERY MORNING FOR ADHD MAXIMUM DAILY DOSE 1 CAPSULE ORAL DISCONTINUED SYSTANE ULTRA 0.4-0.3 % SOLUTION INSTILL 1 DROP IN EACH EYE FOUR TIMES A DAY OR NEEDED OPHTHALMIC DISCONTINUED INDOMETHACIN 50 MG CAPSULE 1 CAPSULE WITH FOOD OR MILK ORALLY TWICE A DAY DISCONTINUED MULTIVITAMINS MVI TABLET 1 TAB(S) ORALLY DAILY FOR GENERAL HEALTH DISCONTINUED ADDERALL 15 MG TABLET 1 TABLET AT LUNCHTIME ORALLY ONCE A DAY DISCONTINUED MIRTAZAPINE 45 MG TABLET 1 TABLET BEFORE BEDTIME IN THE EVENING ORALLY ONCE A DAY DISCONTINUED ERYTHROMYCIN 2 % PAD 1 PAD TO FACE NEEDED EXTERNALLY TWICE A DAY FOR ROSACEA MEDICATION LIST REVIEWED AND RECONCILED WITH THE PATIENT PAST MEDICAL HISTORY CHRONIC BACK PAIN H/O T8 FRACTURE AND T6-7 DISC HERNIATION ASTHMA ALLERGIC RHINITIS DEPRESSION/BIPOLAR DISORDER ROSACEA/FOLLICULIITS H/O KIDNEY STONES GASTROPARESIS INSOMNIA LOW TESOSTERONE HERNIATED DISC L3-L5, HIGH CHOLESTEROL REFLUX ALLERGIES ENVIRONMENTAL: ITCHY EYES, WHEEZING, SNEEZING: ALLERGY SOCIAL HISTORY GENERAL: TOBACCO USE ARE YOU A:FORMER SMOKER HOW LONG HAS IT BEEN SINCE YOU LAST SMOKED?> 10 YEARS RECREATIONAL DRUG USE DRUG USE?NO CAFFEINE CAFFEINE USE?YES HOW OFTEN AND HOW MUCH? 2 CUPS PER DAY QUAKER [id number] NONE LANGUAGE LANGUAGES SPOKEN:KINYARWANDA LEARNING BARRIERS / SPECIAL NEEDS BARRIERS TO LEARNING?NO HEARING IMPAIRED?NO VISION IMPAIRED?YES :CORRECTIVE LENSES COGNITIVELY IMPAIRED?NO READINESS TO LEARN?YES LEARNING PREFERENCES?NO LEARNING CAPABILITIES PRESENT?YES EMOTIONAL BARRIERS?NO SPECIAL DEVICES?NO FEED AND FARM MANAGEMENT ADVISER NEEDED?NO PAIN CLINIC PFS, CLERGY, PUBLIC HEALTH REFERRALS PFS REFERRAL NEEDED?NO CLERGY REFERRAL NEEDED?NO PUBLIC HEALTH REFERRAL NEEDED?NO WAS THE PROVIDER NOTIFIED OF ANY PERTINENT INFO?YES HAS THE PATIENT BEEN EDUCATED REGARDING HIS/HER PLAN OF CARE?YES HAS THE PATIENT BEEN EDUCATED REGARDING PAIN, THE RISK FOR PAIN, THE IMPORTANCE OF EFFECTIVE PAIN MANAGEMENT, AND THE PAIN ASSESSMENT PROCESS?YES REVIEWED BY: TORO. PATIENT: ____. REVIEW OF SYSTEMS REVIEWED BY: PROVIDER: SEBLE BUCKNER . CONSTITUTIONAL: ANY CHANGE IN YOUR MEDICAL CONDITION? NO . CHILLS NO . FEVER NO . INFECTION: DO YOU HAVE NEW INFECTIONS? NO . DO YOU HAVE HISTORY OF MRSA? NO . MUSCULOSKELETAL: ANY NEW PATTERNS OF PAIN OR NUMBNESS? NO . GASTROENTEROLOGY: ANY NEW CHANGE IN BOWEL CONTROL? NO . GENITOURINARY: ANY NEW CHANGE IN BLADDER CONTROL? NO . IS THERE A CHANCE YOU COULD BE ? NO . HEMATOLOGY/LYMPH: DO YOU TAKE ANY BLOOD THINNERS? (FOR EXAMPLE- COUMADIN, PLAVIX, AGGRENOX, PLATEL, PRADAXA, OR XARELTO) NO . WHEN WAS YOUR LAST DOSE? DATE: TIME: . NEUROLOGY: HAVE YOU FALLEN IN THE PAST 6 MONTHS? NO . ANY NEW EXTREMITY NUMBNESS OR WEAKNESS? NO . CARDIOLOGY: DO YOU HAVE A PACEMAKER OR DEFIBRILLATOR? NO . RESPIRATORY: HAVE YOU BEEN SICK IN THE PAST WEEK? NO . FEVER NO . FLU LIKE SYMPTOMS? NO . COUGH NO . INTEGUMENTARY: DO YOU HAVE ANY RASHES OR OPEN SORES? NO . ALLERGIC/IMMUNO: ARE YOU ALLERGIC TO SHELLFISH OR IV DYE? NO . ANY NEW ALLERGIES? NO . PSYCHIATRIC: DO YOU HAVE THOUGHTS OF HURTING YOURSELF OR SOMEONE ELSE? NO . ARE YOU ABUSED, NEGLECTED, OR IN AN UNSAFE ENVIRONMENT? NO . ENDOCRINOLOGY: ARE YOU DIABETIC? NO . OTHER: DO YOU NEED ANY PRESCRIPTIONS? YES . IF YES, PLEASE LIST: METHADONE, PREVACID, IBUPROPHEN, COLACE . ANY NEW PROBLEMS WITH YOUR MEDICATIONS? NO . WHEN DID YOU LAST EAT? ____ . WHEN DID YOU LAST DRINK? ____ . WHAT DID YOU LAST DRINK? ____ . NAME OF PERSON DRIVING YOU HOME? ____ . DO YOU HAVE ANY OTHER QUESTIONS OR CONCERNS NO . VITAL SIGNS WT 162.0 LBS, HT 68 IN, BMI 24.63 INDEX, BP 108/55 MM HG, HR 65 /MIN, RR 16 /MIN, TEMP 97.9 F, OXYGEN SAT % 98%, NA INITIALS TL 0906, REVIEWED BY: CM. EXAMINATION GENERAL EXAMINATION: PSYCHALERT , ORIENTED X 3 , APPROPRIATE MOOD AND AFFECT . LUNGS:CLEAR TO AUSCULTATION BILATERALLY. HEART:HEART RATE REGULAR. MUSCULOSKELETAL:TRIGGER POINTS IDENTIFIDED WITH PALPATION OVER LEFT MID THORACIC REGION. .POINT TENDERNESS OVER LUMBAR SPINOUS PROCESSES, AND RIGHT > LEFT SACRAL ILIAC JOINT. SLOW TO RISE TO STANDING POSITION. HAS DIFFICULTY RISNG TO FULL UPRIGHT POSITION. GAIT WIDE BASED, ANTALGIC.. 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, LUMBAR REGION - M51.16 INTERVERTEBRAL DISC DISORDERS WITH RADICULOPATHY, LUMBOSACRAL REGION - M51.17 CHRONIC PRESCRIPTION OPIATE USE - Z79.891 TREATMENT SPONDYLOSIS WITHOUT MYELOPATHY OR RADICULOPATHY, THORACIC REGION REFILL METHADONE HCL TABLET, 10 MG, 1 TABLET, ORALLY, 1 EVERY 6 HRS DAILY FOR PAIN MDD4 CHRONIC PAIN, 30 DAY(S), 120, REFILLS 0 REFILL IBUPROFEN TABLET, 800 MG, 1 TABLET, ORALLY WITH FOOD, THREE TIMES A DAY, 30 DAY(S), 90 TABLET, REFILLS 3 REFILL PREVACID CAPSULE DELAYED RELEASE, 30 MG, 1 CAPSULE BEFORE A MEAL, ORALLY, DAILY, 30 DAY(S), 30, REFILLS 3 REFILL COLACE CAPSULE, 100 MG, 2 CAPSULES, ORALLY, FOUR TIMES A DAY MDD8, 30 DAY(S), 240, REFILLS 3 NOTES: ALREADY SCHEDULED FOR LESB. ,WHAT IS LUMBAR EPIDURAL INJECTION? MATERIAL WAS PRINTED. CLINICAL NOTES: [facility] REGISTRY REVIEWED AND DEMNOSTRATES COMPLLIANCE. ( REF # [id number]) BRINGS IN MEDICATIONS WHICH IS APPROPRIATE FOR WHAT WAS DISPENSED. RECENT URINE TOXICOLOGY REVIEWED. NO UNAUTHORIZED MEDICATIONS. NO ILLICIT SUBSTANCES AND PRESCRIBED MEDICATIONS WERE PRESENT. , RISKS AND BENEFITS OF NARCOTIC/OPIOD MEDICATIONS WERE REVIEWED WITH PATIENT - THIS INCLUDES BUT IS NOT LIMITED TO RISK OF DEPENDANCE/DEVELOPMENT OF ADDICTION, MOOD DISTURBANCE AND DEPRESSION, OSTEOPOROSIS, HORMONAL AND LABIDAL CHANGES, RESPIRATORY DEPRESSION AND . PATIENT IS ADVISED NOT TO DRIVE WHILE ON THESE MEDICATIONS. PROCEDURES PN WORKMANS' COMP OPINION IN YOUR OPINION, WAS THE INCIDENT THAT THE PATIENT DESCRIBED THE COMPETENT MEDICAL CAUSE OF THIS INJURY/ILLNESS? YES ARE THE PATIENT'S COMPLAINTS CONSISTENT WITH HIS/HER HISTORY OF THE INJURY/ILLNESS? YES IS THE PATIENT'S HISTORY OF THE INJURY/ILLNESS CONSISTENT WITH YOUR OBJECTIVE FINDING? YES WHAT IS THE PERCENTAGE OF TEMPORARY IMPAIRMENT? MARKED = 75% IS THE PATIENT WORKING? NO DOCTOR ON SITE: JENNIFER BACON MD PROCEDURE CODES FA211 ESTABILISHED PATIENT THE [facility] FACILITY CHARGE DISPOSITION & COMMUNICATION FOLLOW UP 6 WEEKS (REASON: WC THORACIC/LOW BACK) ELECTRONICALLY SIGNED BY MARIE NY ON 07/25/2017 AT 08:23 PM EST DISCLAIMER : THIS IS A VISIT SUMMARY EXTRACTED FROM THE [employer] CHART. IT IS NOT A COPY OF THE [employer] PROGRESS NOTE. VIJI
== END ==
LOC: M PAIN 08:30
PROVIDERS: ATTEND Nurse Practitioner Family
DX: M47.814 Spondylosis without myelopathy or radiculopathy, thoracic region (principal); M47.816 Spondylosis without myelopathy or radiculopathy, lumbar region; M51.16 Intervertebral disc disorders with radiculopathy, lumbar region; M51.17 Intervertebral disc disorders with radiculopathy, lumbosacral region; Z79.891 Long term (current) use of opiate analgesic; Z79.899 Other long term (current) drug therapy; Z79.82 Long term (current) use of aspirin; Z87.891 Personal history of nicotine dependence

== ENCOUNTER → 2017-07-12 | Outpatient (CLI) | payer OTHER ==
[~2017-07-12] MED LIST changes: +ISOVUE-M 300 61% 15ML VIAL (Q9967) As Ordered ONE; +LIDOCAINE 1% SDV INJ 30 ML VIAL As Ordered ONE; +methylPREDNISolone SUSP 40 MG/ML (DEPO-medrol) VIAL (J1030) As Ordered ONE
--- NOTE | 2017-07-12 17:34 | REP ---
C-ARM VIEWS, LUMBAR SPINE: CLINICAL HISTORY: Pain. Two C-ARM views are performed during injection by Dr. Rodriguez. Needle is seen at the L5 level. Contrast is injected. 12 seconds fluoroscopic time was utilized. Signed by Ivan Fagan MD 07/13/2017 01:21 P
--- NOTE | 2017-07-28 00:42 | ECWPNPC ---
PATIENT NAME: ROGERIO MEDINA : 1965 GENDER: MALE VISIT DATE: 07/12/2017 DISCHARGE DATE: 07/12/17 1036 VISIT LOCKED DATE TIME: PHYSICIAN: JENNIFER CAMPBELL RESOURCE: JENNIFER CAMPBELL REASON FOR APPOINTMENT 1. MAY NMCristóbal HISTORY OF PRESENT ILLNESS HISTORY OF PRESENT ILLNESS: PAIN THE PATIENT DESCRIBES THE PAIN... FALL RISK SCREENING: SCREENING :NO FALLS IN THE PAST YEAR CURRENT MEDICATIONS TAKING HYDROXYZINE HCL 25MG TABLET 1 TABLET BY MOUTH QID PRN, NOTES: NONE RECENT TAKING CYANOCOBALAMIN 1000 MCG TABLET 1 TABLET ORALLY EVERY OTHER DAY FOR B12 DEFICIENCY, NOTES: 07/11 900 TAKING VITAMIN D 400 UNIT TABLET 1 CAPSULE ORALLY ONCE A DAY, NOTES: 07/11 900 TAKING ASPIR-81 81 MG TABLET DELAYED RELEASE 1 TABLET ORALLY ONCE A DAY, NOTES: 07/11 2200 TAKING EVZIO 0.4 MG/0.4ML SOLUTION AUTO-INJECTOR DIRECTED INJECTION FOR EMERGENCY USE ONLY, NOTES: NEVER TAKING PRAVASTATIN SODIUM 10 MG TABLET 1 TABLET ORALLY ONCE A DAY, NOTES: 07/11 2200 TAKING PRAZOSIN HCL 1 MG CAPSULE 2 CAPSULE ORALLY QHS MDD=2, NOTES: 07/11 2200 TAKING ABILIFY 10 MG TABLET 1 TABLET ORALLY ONCE A DAY, NOTES: 07/11 2200 TAKING SUMATRIPTAN SUCCINATE 100 MG TABLET 1 TABLET NEEDED, REPEAT ONCE AFTER 2 HOURS PRN ORALLY ONCE A DAY MDD=2 MAX 4 MIGRAINES/MONTH, NOTES: NONE RECENT TAKING ADDERALL 20 MG TABLET 1 TAB(S) ORALLY DAILY, NOTES: 07/11 1300 TAKING DIAZEPAM 10 MG TABLET 1 TABLET NEEDED ORALLY TWICE DAILY PRN MDD=2, NOTES: 07/12 700 TAKING EPIPEN 2-PIERCE 0.3 MG/0.3ML DEVICE DIRECTED INJECTION ONCE FOR ALLERGIC REACTION, NOTES: NONE RECENT TAKING LIDODERM 5 % PATCH 3 PATCH TO INTACT SKIN REMOVE AFTER 12 HOURS EXTERNALLY 2 THORAX1 BACK APPLY TO PAINFUL AREA OF BACK ON 12 HRS, OFF 12 HRS, NOTES: 07/11 1400 OFF @ 12 MIDNIGHT TAKING VOLTAREN 1 % GEL ONE APPLICATION EXTERNALLY EVERY 6 HOURS NEEDED TO LOW BACK, NOTES: 07/11 1400 TAKING ZYRTEC 10 MG TABLET 1 TABLET ORALLY ONCE A DAY, NOTES: 07/12 07 TAKING SODIUM FLUORIDE 1.1 MG TABLET 1 TABLET AT BEDTIME ORALLY ONCE A DAY, NOTES: NONE RECENT TAKING GABAPENTIN 300 MG CAPSULE 1 CAPSULE ORALLY WORKERS COMPENSATION FOUR TIMES DAILY MDD4, NOTES: 07/12 700 TAKING ZANAFLEX 4 MG TABLET 1 TABLET NEEDED ORALLY BEFORE BEDTIME MAY REPEAT IN 4 HRS MDD2, NOTES: 07/10 2200 TAKING CITALOPRAM HYDROBROMIDE 10 MG TABLET 1 TABLET ORALLY ONCE A DAY, NOTES: 07/12 700 TAKING ARTIFICIAL TEARS 0.4 % SOLUTION 1 DROP INTO EACH EYE OPHTHALMIC UP TO 6 TIMES DAILY PRN DRY EYES, NOTES: 07/11 1200 TAKING DEPAKOTE ER 500 MG TABLET EXTENDED RELEASE 24 HOUR 1 TAB(S) ORALLY DAILY, NOTES: 07/11 2200 TAKING ALBUTEROL SULFATE HFA 108 (90 BASE) MCG/ACT AEROSOL SOLUTION 2 PUFFS INHALATION ONCE DAILY NEEDED, NOTES: NONE RECENTLY TAKING METHADONE HCL 10 MG TABLET 1 TABLET ORALLY 1 EVERY 6 HRS DAILY FOR PAIN MDD4 CHRONIC PAIN, NOTES: 07/12 700 TAKING IBUPROFEN 800 MG TABLET 1 TABLET ORALLY WITH FOOD THREE TIMES A DAY, NOTES: 07/12 700 TAKING PREVACID 30 MG CAPSULE DELAYED RELEASE 1 CAPSULE BEFORE A MEAL ORALLY DAILY, NOTES: 07/12 700 TAKING COLACE 100 MG CAPSULE 2 CAPSULES ORALLY FOUR TIMES A DAY MDD8, NOTES: 07/12 700 TAKING METRONIDAZOLE 0.75 % CREAM 1 APPLICATION A THIN LAYER TO AFFECTED AREA EXTERNALLY TWICE A DAY FOR ROSACEA, NOTES: NONE RECENT TAKING CLINDAMYCIN PHOSPHATE 1 % SOLUTION 1 DROP TO RASH ON CHEST, BACK AND LEGS EXTERNALLY BID PRN, NOTES: NONE RECENT TAKING CLOTRIMAZOLE-BETAMETHASONE 1-0.05 % CREAM 1 APPLICATION TO BACK/CHEST/LEGS EXTERNALLY TWICE A DAY PRN FOLLICULITIS, NOTES: NONE RECENT TAKING AZELASTINE HCL 0.05 % SOLUTION 1 DROP INTO AFFECTED EYE OPHTHALMIC TWICE A DAY PRN ALLERGIES, NOTES: NONE RECENT TAKING TESTOSTERONE CYPIONATE 200 MG/ML SOLUTION 1.75 ML INTRAMUSCULAR INJECTED MONTHLY (MDD: 1.75 ML/MONTH) CODE F, NOTES: 06/30 MEDICATION LIST REVIEWED AND RECONCILED WITH THE PATIENT PAST MEDICAL HISTORY CHRONIC BACK PAIN H/O T8 FRACTURE AND T6-7 DISC HERNIATION ASTHMA ALLERGIC RHINITIS DEPRESSION/BIPOLAR DISORDER ROSACEA/FOLLICULIITS H/O KIDNEY STONES GASTROPARESIS INSOMNIA LOW TESOSTERONE HERNIATED DISC L3-L5, HIGH CHOLESTEROL REFLUX ALLERGIES ENVIRONMENTAL: ITCHY EYES, WHEEZING, SNEEZING: ALLERGY SOCIAL HISTORY GENERAL: TOBACCO USE ARE YOU A:FORMER SMOKER HOW LONG HAS IT BEEN SINCE YOU LAST SMOKED?> 10 YEARS RECREATIONAL DRUG USE DRUG USE?NO CAFFEINE CAFFEINE USE?YES HOW OFTEN AND HOW MUCH? 2 CUPS PER DAY MOSQUE [id number] NONE LANGUAGE LANGUAGES SPOKEN:SLOVENIAN LEARNING BARRIERS / SPECIAL NEEDS BARRIERS TO LEARNING?NO HEARING IMPAIRED?NO VISION IMPAIRED?YES :CORRECTIVE LENSES COGNITIVELY IMPAIRED?NO READINESS TO LEARN?YES LEARNING PREFERENCES?NO LEARNING CAPABILITIES PRESENT?YES EMOTIONAL BARRIERS?NO SPECIAL DEVICES?NO SUPERVISOR DRYING AND WINDING NEEDED?NO PAIN CLINIC PFS, CLERGY, PUBLIC HEALTH REFERRALS PFS REFERRAL NEEDED?NO CLERGY REFERRAL NEEDED?NO PUBLIC HEALTH REFERRAL NEEDED?NO WAS THE PROVIDER NOTIFIED OF ANY PERTINENT INFO?YES HAS THE PATIENT BEEN EDUCATED REGARDING HIS/HER PLAN OF CARE?YES HAS THE PATIENT BEEN EDUCATED REGARDING PAIN, THE RISK FOR PAIN, THE IMPORTANCE OF EFFECTIVE PAIN MANAGEMENT, AND THE PAIN ASSESSMENT PROCESS?YES REVIEWED BY: 07/12 915 AD. PATIENT: ____. ADVANCE DIRECTIVES HEALTH CARE PROXY?YES NAME OF HCP NICK MEDINA CONTACT # FOR HCP [phone] DO YOU HAVE A COPY WITH YOU?NO DO YOU HAVE A DNR?NO WOULD YOU LIKE MORE INFORMATION?NO LIVING WILL?NO WOULD YOU LIKE MORE INFORMATION?NO POWER OF FLOW MANAGER?NO WOULD YOU LIKE MORE INFORMATION?NO DOMESTIC VIOLENCE DO YOU FEEL SAFE IN YOUR ENVIRONMENT?YES REVIEW OF SYSTEMS REVIEWED BY: PROVIDER: . CONSTITUTIONAL: ANY CHANGE IN YOUR MEDICAL CONDITION? NO . CHILLS NO . FEVER NO . INFECTION: DO YOU HAVE NEW INFECTIONS? NO . DO YOU HAVE HISTORY OF MRSA? NO . MUSCULOSKELETAL: ANY NEW PATTERNS OF PAIN OR NUMBNESS? NO . GASTROENTEROLOGY: ANY NEW CHANGE IN BOWEL CONTROL? NO . GENITOURINARY: ANY NEW CHANGE IN BLADDER CONTROL? NO . IS THERE A CHANCE YOU COULD BE ? NO . HEMATOLOGY/LYMPH: DO YOU TAKE ANY BLOOD THINNERS? (FOR EXAMPLE- COUMADIN, PLAVIX, AGGRENOX, PLATEL, PRADAXA, OR XARELTO) NO . WHEN WAS YOUR LAST DOSE? DATE: TIME: . NEUROLOGY: HAVE YOU FALLEN IN THE PAST 6 MONTHS? NO . ANY NEW EXTREMITY NUMBNESS OR WEAKNESS? NO . CARDIOLOGY: DO YOU HAVE A PACEMAKER OR DEFIBRILLATOR? NO . RESPIRATORY: HAVE YOU BEEN SICK IN THE PAST WEEK? NO . FEVER NO . FLU LIKE SYMPTOMS? NO . COUGH NO . INTEGUMENTARY: DO YOU HAVE ANY RASHES OR OPEN SORES? NO . ALLERGIC/IMMUNO: ARE YOU ALLERGIC TO SHELLFISH OR IV DYE? NO . ANY NEW ALLERGIES? NO . PSYCHIATRIC: DO YOU HAVE THOUGHTS OF HURTING YOURSELF OR SOMEONE ELSE? NO . ARE YOU ABUSED, NEGLECTED, OR IN AN UNSAFE ENVIRONMENT? NO . ENDOCRINOLOGY: ARE YOU DIABETIC? NO . OTHER: DO YOU NEED ANY PRESCRIPTIONS? NO . IF YES, PLEASE LIST: ____ . ANY NEW PROBLEMS WITH YOUR MEDICATIONS? NO . WHEN DID YOU LAST EAT? 07/11 2200 . WHEN DID YOU LAST DRINK? 07/12 0600 . WHAT DID YOU LAST DRINK? BLACK COFFEE . NAME OF PERSON DRIVING YOU HOME? CASA MEDINA . DO YOU HAVE ANY OTHER QUESTIONS OR CONCERNS NO PT HAS NOT HAD A FLU OR PNEUMO VACCINE. . VITAL SIGNS WT 165.0 LBS, HT 68 IN, BMI 25.09 INDEX, BP 116/60 MM HG, HR 68 /MIN, RR 16 /MIN, TEMP 98.5 F, OXYGEN SAT % 98%, SAFE IN ENV? (Y/N) Y, NA INITIALS TL 0852, REVIEWED BY: AD. ASSESSMENTS INTERVERTEBRAL DISC DISORDER WITH RADICULOPATHY OF LUMBAR REGION - M51.16 (PRIMARY) PROCEDURES PRE PROCEDURE DIAGNOSIS LUMBAR DISC DISORDER WITH RADICULOPATHY POST PROCEDURE DIAGNOSIS LUMBAR DISC DISORDER WITH RADICULOPATHY PROCEDURE LUMBAR EPIDURAL STEROID INJECTION UNDER FLUOROSCOPIC GUIDANCE SURGEON DR. JENNIFER CAMPBELL HEEL SEAT FITTER NONE ANESTHESIA LOCAL PRE PROCEDURE NOTE THE PATIENT HAS A HISTORY OF CHRONIC LOW BACK PAIN. I EVALUATE THE PATIENT AND REVIEWED THE CHART. I WENT OVER THE RISKS, ALTERNATIVES, AND BENEFITS ASSOCIATED WITH THIS PROCEDURE. THE PATIENT WOULD LIKE TO PROCEED AND GIVE CONSENT TO PERFORMED THE PROCEDURE. THE PATIENT DENIES UNEXPLAINABLE WEIGHT LOSS, FEVER, CHILLS, OR NEW CHANGES IN URINARY OR BOWEL CONTROL. DESCRIPTION OF PROCEDURE THE PATIENT WAS BROUGHT TO THE PROCEDURE ROOM AND PLACED IN THE PRONE POSITION. THE LUMBOSACRAL AREA WAS CLEANED WITH BETADINE SOLUTION AND DRAPED ASEPTICALLY. THE PROCEDURE WAS DONE UNDER STERILE CONDITIONS. I CHECKED LATERALITY AND THE LEVEL WHERE THE PROCEDURE WAS GOING TO BE PERFORMED WITH THE PATIENT AND THE SUPPORTING STAFF AT THE MOMENT OF THE TIME OUT IN THE PROCEDURE ROOM. UNDER FLUOROSCOPIC GUIDANCE, THE TARGET POINT WAS SELECTED AT THE INTERLAMINAR LEVEL OF L4-L5. LIDOCAINE WAS USED TO NUMB THE SKIN AND THE SUBCUTANEOUS TISSUE BELOW IT. EPIDURAL TUOHY NEEDLE, 17-GAUGE, WAS ADVANCED UNDER FLUOROSCOPIC GUIDANCE AND FOLLOWING PATIENT FEEDBACK UNTIL THE EPIDURAL SPACE WAS REACHED, 7 CM DEEP INTO THE SKIN BY THE LOSS OF RESISTANCE TECHNIQUE. ISOVUE M DYE 30%, 0.25 ML, WAS INJECTED SHOWING ADEQUATE SPREAD OF THE DYE. THEN, A SOLUTION OF 3 ML OF NORMAL SALINE WITH DEPO-MEDROL 60 MG WAS INJECTED SLOWLY FOLLOWING PATIENT FEEDBACK. THERE WAS NO EVIDENCE OF BLOOD, PARESTHESIA OR CEREBROSPINAL FLUID DURING THE PROCEDURE. THE PATIENT WAS SENT TO THE RECOVERY ROOM. THE PATIENT WAS MOVING THE EXTREMITIES AND DOING WELL. THERE WAS NO COMPLICATION DURING THE PROCEDURE. FLUOROSCOPY TIME WAS 12 SECONDS. POST PROCEDURE NOTE THE PATIENT WILL BE SEEN IN A FOLLOW UP IN THE NEXT FEW WEEKS. INSTRUCTIONS WERE GIVEN, QUESTIONS WERE ANSWERED, AND THE PATIENT EXPRESSED UNDERSTANDING AND AGREES WITH THE PLAN. I, TIARA SPEAR, DOCUMENTED THE ABOVE INFORMATION ACTING A SCRIBE FOR DR. CAMPBELL. I HAVE REVIEWED THE ABOVE DOCUMENT, WRITTEN BY TIARA LOERAIBYumiko AND I VERIFY THAT IT IS [facility] FLUORO GUIDE SPINE INJECTION (PAIN)[id number] PROCEDURE CODES 94780 LUMBAR/SACRAL W/ IMAGING 6045F RADXPS IN END [id number] PXD DISPOSITION & COMMUNICATION FOLLOW UP 2 WEEKS ELECTRONICALLY SIGNED BY JENNIFER CAMPBELL MD ON 07/26/2017 AT 11:09 AM EST DISCLAIMER : THIS IS A VISIT SUMMARY EXTRACTED FROM THE [employer] CHART. IT IS NOT A COPY OF THE [employer] PROGRESS NOTE. MTDD
== END ==
LOC: M PAIN 08:30
PROVIDERS: ATTEND Anesthesiology
DX: G89.29 Other chronic pain (principal); M51.16 Intervertebral disc disorders with radiculopathy, lumbar region; J45.909 Unspecified asthma, uncomplicated; F31.9 Bipolar disorder, unspecified; G47.00 Insomnia, unspecified; E29.1 Testicular hypofunction; E78.00 Pure hypercholesterolemia, unspecified; K21.9 Gastro-esophageal reflux disease without esophagitis; L71.9 Rosacea, unspecified; L73.9 Follicular disorder, unspecified; Z79.82 Long term (current) use of aspirin; Z79.1 Long term (current) use of non-steroidal anti-inflammatories (NSAID); Z79.899 Other long term (current) drug therapy; Z87.891 Personal history of nicotine dependence
CPT/HCPCS: 62323; J1030; Q9967

== ENCOUNTER → 2017-07-28 | Outpatient (REF) | payer OTHER ==
[~2017-07-28] MED LIST changes: -ISOVUE-M 300 61% 15ML VIAL (Q9967) As Ordered ONE; -LIDOCAINE 1% SDV INJ 30 ML VIAL As Ordered ONE; -methylPREDNISolone SUSP 40 MG/ML (DEPO-medrol) VIAL (J1030) As Ordered ONE
[2017-07-31 00:08] LABS: Lyme Disease IgG/IgM Antibodie <0.91 ISR (0.00-0.90); Lyme Disease IgM Ab Quantitati <0.80 index (0.00-0.79)
== END ==
LOC: M SFHCLERA 12:31
PROVIDERS: ATTEND Physician Assistant
DX: I95.9 Hypotension, unspecified (principal); E29.1 Testicular hypofunction; M79.1 Myalgia

== ENCOUNTER → 2017-09-14 | Outpatient (CLI) | payer OTHER | LOC: M PAIN 11:30 | DX: M47.814 Spondylosis without myelopathy or radiculopathy, thoracic region (principal); M51.16 Intervertebral disc disorders with radiculopathy, lumbar region; Z79.82 Long term (current) use of aspirin; Z79.891 Long term (current) use of opiate analgesic; Z79.899 Other long term (current) drug therapy; Z87.891 Personal history of nicotine dependence; Z88.8 Allergy status to other drugs, medicaments and biological substances; J30.2 Other seasonal allergic rhinitis | CPT/HCPCS: G0463 ==

== ENCOUNTER → 2017-10-26 | Outpatient (CLI) | payer OTHER ==
[~2017-10-26] MED LIST changes: -/BACL20TA; -/DULO30CA; -/DULO30CA OR; -/FEXO18TA OR; -/LANS30GR; -/LANS30GR OR; -/OXYC15TA; -/TAMS4CA OR; -ABIL10TA9 PO; -ABIL1TAB11 PO; -ABIL5TAB OR; -ADDE10CA3 PO; -ADDE10TA PO; -ADDE1TAB14 PO; -ADDE1TAB22 PO; -ADVAIR; -ADVAIR INH; -ALBU17IN2 IN; -ALBUPOW9 INH; -ARTHROTEC; -ARTHROTEC OR; -ASPI81TA85 PO; -ATARAX OR; -BACL10TA2 PO; +BUPIVACAINE HCL 0.25% 30 ML VIAL As Ordered; -CETI10TA OR; -CLAR5CHW; -CLAR5CHW OR; -COLA100C2; -COLA100C2 OR; -CYCL10TA PO; -DEPA250T32 PO; -DEPA500T OR; -DIAZ10TA2 PO; -DOXY100T; -DOXY100T OR; -EFFE150C OR; -ERYTHROMYCI1; -ETOD20CA PO; -FLECTOR PATCH; -FLEX10TA2 PO; -FLEXERIL; -FLEXERIL PO; -HYDR25TA8; -HYDR25TA8 OR; -IBUP80TA PO; +ISOVUE-M 300 61% 15ML VIAL (Q9967) As Ordered; -LATU40TA PO; -LIDO5DIS; -LIDO5DIS EX; +LIDOCAINE 1% SDV INJ 30 ML VIAL As Ordered; -LYRI150C; -LYRI200C; -LYRI200C OR; -LYRI225C; -LYRI300C; -MAGN500T2; -METH5TAB2 OR; -METH750T PO; -METO5TAB2 OR; -MIRT15TA50 PO; -MULTIVIT OR; -MULTIVIT PO; -OPAN10TA16; -OXYC10TA12 OR; -OXYCODONE IR PO; -PERC7.5T12 PO; -PHEN 25 OR; -PRAV10TA4 OR; -PROTOPIC; -PROV200T5 OR; -PROV90AE; -PROVIGIL; -Patanol OU; -RITA10TA; -ROBA500T OR; -SERO50TA PO; -SERO50TA3 PO; -SING10TA31; -SING10TA31 OR; -SKEL800T5 OR; -SUMAPOW3 PO; -TEMA15CA2 OR; -TEMA30CA; -TEMA30CA OR; -TESTPOW5 IM; -THERGRAN; -TIZA4CAP3 PO; -TIZA4TAB OR; -TOPI100T; -TRAM50TA2; -TRAM50TA2 OR; -TRAZ100T; -TRAZ100T OR; +TRIAMCINOLONE ACETONIDE SUSP 40 MG/ML VIAL (J3301) As Ordered; -TYLE500T53 OR; -ULTR200T; -ULTR300T; -VENL75TA2 OR; -VITA100027; -VITA100027 OR; -VITA100067 PO; -VITA100072 PO; -VOLT1GEL; -VOLT1GEL EX; -VOLT1GEL TOP; -WELL100T PO; -ZANA4CAP PO; -ZOMI5TAB; -ZOMI5TAB OR; -mirtazapine PO; -testosterone INJ; -wellbutrin PO
== END | disposition home or self-care (01) ==
LOC: M PAIN 08:30
DX: G89.29 Other chronic pain (principal); M47.814 Spondylosis without myelopathy or radiculopathy, thoracic region; J45.909 Unspecified asthma, uncomplicated; F33.9 Major depressive disorder, recurrent, unspecified; K31.84 Gastroparesis; E78.00 Pure hypercholesterolemia, unspecified; K21.9 Gastro-esophageal reflux disease without esophagitis; G47.00 Insomnia, unspecified; Z79.899 Other long term (current) drug therapy; Z79.82 Long term (current) use of aspirin; Z88.8 Allergy status to other drugs, medicaments and biological substances
CPT/HCPCS: J3301

== ENCOUNTER → 2017-11-23 | Outpatient (CLI) | payer OTHER | LOC: M PAIN 09:00 | DX: M47.814 Spondylosis without myelopathy or radiculopathy, thoracic region (principal); M46.1 Sacroiliitis, not elsewhere classified; M51.16 Intervertebral disc disorders with radiculopathy, lumbar region; J45.909 Unspecified asthma, uncomplicated; F31.9 Bipolar disorder, unspecified; L71.9 Rosacea, unspecified; G47.00 Insomnia, unspecified; E78.00 Pure hypercholesterolemia, unspecified; K21.9 Gastro-esophageal reflux disease without esophagitis; F11.20 Opioid dependence, uncomplicated; Z79.82 Long term (current) use of aspirin; Z79.899 Other long term (current) drug therapy; Z88.8 Allergy status to other drugs, medicaments and biological substances; Z87.891 Personal history of nicotine dependence; Z87.19 Personal history of other diseases of the digestive system | CPT/HCPCS: G0463 ==

== ENCOUNTER → 2017-11-23 | Outpatient (CLI) | payer OTHER ==
[2017-11-23 11:11] LABS: BASO # 0.1 10^3/uL (0.0-0.2); BASO % 0.9 % (0.0-1.0); EOS # 0.2 10^3/uL (0.0-0.50); EOS % 3.8 % (0.0-3.0); HEMATOCRIT 48.2 % (42.0-52.0); HEMOGLOBIN 15.9 g/dl (14.0-18.0); IMMATURE GRANULOCYTE % 0.2 % (0-3.0); LYMPH # 1.4 10^3/uL (1.5-4.5); MEAN CORPUSCULAR HEMOGLOBIN 30.7 pg (27.0-33.0); MEAN CORPUSCULAR VOLUME 93.1 fl (80.0-96.0); MONO # 0.5 10^3/uL (0.0-0.8); MONO % 8.3 % (0.0-5.0); NEUTROPHILS # 3.6 10^3/uL (1.8-7.7); NEUTROPHILS % 61.8 % (36.0-66.0); PLATELET COUNT, AUTOMATED 172 10^3/uL (150-450); RED BLOOD COUNT 5.18 10^6/uL (4.30-6.10); RED CELL DISTRIBUTION WIDTH 12.7 % (11.5-14.5); WHITE BLOOD COUNT 5.8 10^3/uL (4.0-10.0)
[2017-11-23 11:34] LABS: ALBUMIN 4.2 GM/DL (3.2-5.2); ALBUMIN/GLOBULIN RATIO 1.45 (1.00-1.93); ALKALINE PHOSPHATASE 57 U/L (45-117); ALT/SGPT 34 U/L (12-78); ANION GAP 7 MEQ/L (8-16); AST/SGOT 24 U/L (7-37); BILIRUBIN,TOTAL 0.4 MG/DL (0.2-1.0); BLOOD UREA NITROGEN 26 MG/DL (7-18); CALCIUM LEVEL 8.9 MG/DL (8.5-10.1); CARBON DIOXIDE LEVEL 28 MEQ/L (21-32); CHLORIDE LEVEL 107 MEQ/L (98-107); CREATININE FOR GFR 1.25 MG/DL (0.70-1.30); GLOMERULAR FILTRATION RATE > 60.0 (>56); GLUCOSE, FASTING 89 MG/DL (70-100); MAGNESIUM LEVEL 2.3 MG/DL (1.8-2.4); POTASSIUM SERUM 4.6 MEQ/L (3.5-5.1); SODIUM LEVEL 142 MEQ/L (136-145); TOTAL PROTEIN 7.1 GM/DL (6.4-8.2)
[2017-11-23 11:47] LABS: FOLATE 21.6 NG/ML; VITAMIN B12 LEVEL 1395 PG/ML
== END ==
LOC: M LAB 10:32
DX: M47.814 Spondylosis without myelopathy or radiculopathy, thoracic region (principal); Z79.899 Other long term (current) drug therapy; M51.16 Intervertebral disc disorders with radiculopathy, lumbar region
CPT/HCPCS: 93005

== ENCOUNTER → 2017-12-29 | Outpatient (CLI) | payer OTHER | LOC: M PAIN 09:15 | DX: M47.814 Spondylosis without myelopathy or radiculopathy, thoracic region (principal); M46.1 Sacroiliitis, not elsewhere classified; M51.16 Intervertebral disc disorders with radiculopathy, lumbar region; G89.29 Other chronic pain; J45.909 Unspecified asthma, uncomplicated; F31.9 Bipolar disorder, unspecified; L71.9 Rosacea, unspecified; G47.00 Insomnia, unspecified; E78.00 Pure hypercholesterolemia, unspecified; K21.9 Gastro-esophageal reflux disease without esophagitis; Z79.82 Long term (current) use of aspirin; Z79.899 Other long term (current) drug therapy; Z88.8 Allergy status to other drugs, medicaments and biological substances; Z87.19 Personal history of other diseases of the digestive system; Z87.891 Personal history of nicotine dependence | CPT/HCPCS: G0463 ==

== ENCOUNTER → 2018-02-08 | Outpatient (CLI) | payer OTHER | LOC: M PAIN 09:15 | DX: M47.814 Spondylosis without myelopathy or radiculopathy, thoracic region (principal); M46.1 Sacroiliitis, not elsewhere classified; M51.16 Intervertebral disc disorders with radiculopathy, lumbar region; J45.909 Unspecified asthma, uncomplicated; F31.9 Bipolar disorder, unspecified; L71.9 Rosacea, unspecified; L73.9 Follicular disorder, unspecified; K31.84 Gastroparesis; G47.00 Insomnia, unspecified; E29.1 Testicular hypofunction; E78.00 Pure hypercholesterolemia, unspecified; K21.9 Gastro-esophageal reflux disease without esophagitis; Z87.891 Personal history of nicotine dependence; Z79.82 Long term (current) use of aspirin; Z88.8 Allergy status to other drugs, medicaments and biological substances; Z79.899 Other long term (current) drug therapy; Z79.891 Long term (current) use of opiate analgesic | CPT/HCPCS: G0463 ==

== ENCOUNTER → 2018-03-22 | Outpatient (CLI) | payer OTHER | LOC: M PAIN 08:45 | DX: M51.17 Intervertebral disc disorders with radiculopathy, lumbosacral region (principal); M47.814 Spondylosis without myelopathy or radiculopathy, thoracic region; M51.16 Intervertebral disc disorders with radiculopathy, lumbar region; M47.816 Spondylosis without myelopathy or radiculopathy, lumbar region; M47.817 Spondylosis without myelopathy or radiculopathy, lumbosacral region; J45.909 Unspecified asthma, uncomplicated; F31.9 Bipolar disorder, unspecified; L71.9 Rosacea, unspecified; G47.00 Insomnia, unspecified; R25.1 Tremor, unspecified; K21.9 Gastro-esophageal reflux disease without esophagitis; K31.84 Gastroparesis; F11.20 Opioid dependence, uncomplicated; Z79.891 Long term (current) use of opiate analgesic; Z79.899 Other long term (current) drug therapy; Z79.82 Long term (current) use of aspirin; Z88.8 Allergy status to other drugs, medicaments and biological substances; Z87.891 Personal history of nicotine dependence | CPT/HCPCS: G0463 ==

== ENCOUNTER → 2018-03-25 | Outpatient (CLI) | payer OTHER | LOC: M PLARAD 10:31 | DX: G25.0 Essential tremor (principal); G31.84 Mild cognitive impairment of uncertain or unknown etiology | CPT/HCPCS: 70551 ==

== ENCOUNTER → 2018-04-18 | Outpatient (CLI) | payer OTHER ==
[~2018-04-18] MED LIST changes: -BUPIVACAINE HCL 0.25% 30 ML VIAL As Ordered; -TRIAMCINOLONE ACETONIDE SUSP 40 MG/ML VIAL (J3301) As Ordered; +diazePAM 5 MG TAB As Ordered; +methylPREDNISolone SUSP 40 MG/ML (DEPO-medrol) VIAL (J1030) As Ordered; +oxyCODONE 5MG TAB As Ordered
== END ==
LOC: M PAIN 10:00
DX: M51.17 Intervertebral disc disorders with radiculopathy, lumbosacral region (principal); J45.909 Unspecified asthma, uncomplicated; F31.9 Bipolar disorder, unspecified; G47.00 Insomnia, unspecified; E29.1 Testicular hypofunction; M51.26 Other intervertebral disc displacement, lumbar region; E78.00 Pure hypercholesterolemia, unspecified; K21.9 Gastro-esophageal reflux disease without esophagitis; G25.0 Essential tremor; Z88.8 Allergy status to other drugs, medicaments and biological substances; Z87.891 Personal history of nicotine dependence; Z79.82 Long term (current) use of aspirin; Z79.899 Other long term (current) drug therapy
CPT/HCPCS: J1030

== ENCOUNTER → 2018-05-03 | Outpatient (CLI) | payer OTHER | LOC: M PAIN 09:15 | DX: M51.17 Intervertebral disc disorders with radiculopathy, lumbosacral region (principal); M47.814 Spondylosis without myelopathy or radiculopathy, thoracic region; M79.1 Myalgia; J45.909 Unspecified asthma, uncomplicated; F31.9 Bipolar disorder, unspecified; L71.9 Rosacea, unspecified; G47.00 Insomnia, unspecified; E78.00 Pure hypercholesterolemia, unspecified; K21.9 Gastro-esophageal reflux disease without esophagitis; G25.0 Essential tremor; F11.11 Opioid abuse, in remission; Z79.82 Long term (current) use of aspirin; Z79.899 Other long term (current) drug therapy; Z88.8 Allergy status to other drugs, medicaments and biological substances; Z87.19 Personal history of other diseases of the digestive system; Z87.891 Personal history of nicotine dependence | CPT/HCPCS: G0463 ==

== ENCOUNTER → 2018-05-12 | Outpatient (CLI) | payer OTHER | LOC: M RAD 16:50 | DX: M25.571 Pain in right ankle and joints of right foot (principal) | CPT/HCPCS: 73600 ==

== ENCOUNTER 2018-05-21 10:35 | Inpatient (IN) | payer MEDICAID, OTHER ==
[2018-05-21 11:22] LABS: HEMATOCRIT 51.5 % (42.0-52.0); HEMOGLOBIN 17.2 g/dl (13.5-17.5); MEAN CORPUSCULAR HEMOGLOBIN 31.3 pg (27.0-33.0); MEAN CORPUSCULAR HGB CONC 33.4 g/dl (32.0-36.5); MEAN CORPUSCULAR VOLUME 93.6 fl (80.0-96.0); PLATELET COUNT, AUTOMATED 223 10^3/uL (150-450); RED CELL DISTRIBUTION WIDTH 11.9 % (11.5-14.5); WHITE BLOOD COUNT 6.8 10^3/uL (4.0-10.0)
[2018-05-21 11:51] LABS: AMPHETAMINES LEVEL URINE POSITIVE (NEGATIVE); BARBITURATES URINE NEGATIVE (NEGATIVE); BENZODIAZEPINES URINE POSITIVE (NEGATIVE); CANNABINOIDS URINE POSITIVE (NEGATIVE); COCAINE METABOLITE URINE NEGATIVE (NEGATIVE); METHADONE URINE POSITIVE (NEGATIVE); OPIATES URINE NEGATIVE (NEGATIVE); PHENCYCLIDINE URINE NEGATIVE (NEGATIVE)
[2018-05-21 12:01] LABS: ALBUMIN 4.3 GM/DL (3.2-5.2); ALBUMIN/GLOBULIN RATIO 1.19 (1.00-1.93); ALKALINE PHOSPHATASE 65 U/L (45-117); ALT/SGPT 42 U/L (12-78); ANION GAP 10 MEQ/L (8-16); AST/SGOT 33 U/L (7-37); BILIRUBIN,DIRECT 0.1 MG/DL (0.0-0.2); BILIRUBIN,TOTAL 0.6 MG/DL (0.2-1.0); BLOOD UREA NITROGEN 29 MG/DL (7-18); CALCIUM LEVEL 8.6 MG/DL (8.5-10.1); CARBON DIOXIDE LEVEL 28 MEQ/L (21-32); CHLORIDE LEVEL 103 MEQ/L (98-107); CREATININE FOR GFR 1.26 MG/DL (0.70-1.30); GLOMERULAR FILTRATION RATE > 60.0 (>56); GLUCOSE, FASTING 86 MG/DL (70-100); POTASSIUM SERUM 4.1 MEQ/L (3.5-5.1); SALICYLATE LEVEL < 1.7 MG/DL (5.0-30.0); SODIUM LEVEL 141 MEQ/L (136-145); TOTAL PROTEIN 7.9 GM/DL (6.4-8.2); VALPROIC ACID (DEPAKOTE) < 3.0 UG/ML (50.0-100.0)
[2018-05-21 12:02] LABS: ACETAMINOPHEN LEVEL < 2.0 UG/ML (10.0-30.0); ETHYL ALCOHOL (ETHANOL) < 0.003 % (0.000-0.010)
[2018-05-21] MEDS ORDERED: MAALOX 30 ML SUSP *UDC PO (14:00)
[2018-05-21] MEDS ORDERED: ACETAMINOPHEN TAB 650MG DOSE (2X325MG) PO (14:00)
[2018-05-21] MEDS ORDERED: MOM 30ML SUSPENSION UDC PO (14:00)
[2018-05-21] MEDS ORDERED: DOCUSATE SODIUM 100 MG CAP PO (16:30)
[2018-05-21] MEDS ORDERED: hydrOXYzine 50 MG TAB PO (16:30)
[2018-05-21] MEDS ORDERED: SUMAtriptan SUCCINATE 25 MG TAB PO (16:30)
[2018-05-21] MEDS: METHADONE 10 MG TAB (S0109) PO ×2 (17:19→22:40)
[2018-05-21] MEDS: GABAPENTIN 300 MG CAP PO ×2 (17:19→22:39)
[2018-05-21] MEDS: ANALGESIC BALM CRM 120 GM TOP (21:00)
[2018-05-21] MEDS: **NOTE PATIENT COMMENT** MISC XX (21:00)
[2018-05-21] MEDS: PRAVASTATIN 10 MG TAB PO (22:39)
[2018-05-21] MEDS: ASPIRIN 81 MG ENTERIC TAB PO (22:39)
[2018-05-21] MEDS: PRAZOSIN 1 MG CAP PO (22:39)
[2018-05-21] MEDS: INDOMETHACIN 25 MG CAP PO (22:39)
[2018-05-21] MEDS: tiZANidine 4 MG TAB PO (22:40)
[2018-05-22] MEDS: AMPHETAMINE/DEXTROAMPHETAMINE 5 MG *ER* CAPSULE (ADDERALL XR) PO (08:23)
[2018-05-22] MEDS: GABAPENTIN 300 MG CAP PO ×4 (08:23→21:51)
[2018-05-22] MEDS: PANTOPRAZOLE 40MG TAB (PROTONIX) PO (08:24)
[2018-05-22] MEDS: CETIRIZINE (ZyrTEC) 10 MG TAB PO (08:24)
[2018-05-22] MEDS: hydrOXYzine 25 MG TAB PO (08:24)
[2018-05-22] MEDS: METHADONE 10 MG TAB (S0109) PO ×4 (08:24→21:53)
[2018-05-22] MEDS: INDOMETHACIN 25 MG CAP PO ×2 (08:25→21:51)
[2018-05-22] MEDS: LIDOCAINE 5% (LIDODERM) PATCH TD (08:27)
[2018-05-22] MEDS: ANALGESIC BALM CRM 120 GM TOP ×4 (08:33→21:00)
[2018-05-22] MEDS ORDERED: PRAZOSIN 1 MG CAP PO (15:30)
[2018-05-22] MEDS: PRAVASTATIN 10 MG TAB PO (21:50)
[2018-05-22] MEDS: tiZANidine 4 MG TAB PO (21:50)
[2018-05-22] MEDS: ASPIRIN 81 MG ENTERIC TAB PO (21:51)
[2018-05-22] MEDS: PRAZOSIN 1 MG CAP PO (21:52)
[2018-05-22] MEDS: **NOTE PATIENT COMMENT** MISC XX (21:53)
[2018-05-23] MEDS: traZODone 50 MG TAB PO (00:10)
[2018-05-23] MEDS: ANALGESIC BALM CRM 120 GM TOP ×5 (00:12→22:01)
[2018-05-23] MEDS: GABAPENTIN 300 MG CAP PO ×4 (08:12→22:04)
[2018-05-23] MEDS: CETIRIZINE (ZyrTEC) 10 MG TAB PO (08:12)
[2018-05-23] MEDS: PANTOPRAZOLE 40MG TAB (PROTONIX) PO (08:12)
[2018-05-23] MEDS: METHADONE 10 MG TAB (S0109) PO ×4 (08:13→22:04)
[2018-05-23] MEDS: INDOMETHACIN 25 MG CAP PO ×2 (08:13→22:03)
[2018-05-23] MEDS: LIDOCAINE 5% (LIDODERM) PATCH TD (08:14)
[2018-05-23] MEDS: AMPHETAMINE/DEXTROAMPHETAMINE 5 MG *ER* CAPSULE (ADDERALL XR) PO (09:18)
[2018-05-23] MEDS: **NOTE PATIENT COMMENT** MISC XX (21:00)
[2018-05-23] MEDS: PRAZOSIN 1 MG CAP PO (22:02)
[2018-05-23] MEDS: tiZANidine 4 MG TAB PO (22:03)
[2018-05-23] MEDS: ASPIRIN 81 MG ENTERIC TAB PO (22:03)
[2018-05-23] MEDS: PRAVASTATIN 10 MG TAB PO (22:04)
[2018-05-24] MEDS: PANTOPRAZOLE 40MG TAB (PROTONIX) PO (08:35)
[2018-05-24] MEDS: CETIRIZINE (ZyrTEC) 10 MG TAB PO (08:35)
[2018-05-24] MEDS: GABAPENTIN 300 MG CAP PO ×2 (08:35→12:44)
[2018-05-24] MEDS: INDOMETHACIN 25 MG CAP PO (08:35)
[2018-05-24] MEDS: AMPHETAMINE/DEXTROAMPHETAMINE 5 MG *ER* CAPSULE (ADDERALL XR) PO (08:35)
[2018-05-24] MEDS: METHADONE 10 MG TAB (S0109) PO ×2 (08:36→12:44)
[2018-05-24] MEDS: ANALGESIC BALM CRM 120 GM TOP ×2 (08:36→12:44)
[2018-05-24] MEDS: LIDOCAINE 5% (LIDODERM) PATCH TD (08:37)
== END 2018-05-24 13:10 | disposition home or self-care (01) | DRG 754 ==
LOC: M ED 10:35 → M ED INP 13:52 → M PSY 14:42
DX: F32.9 Major depressive disorder, single episode, unspecified (principal); E78.00 Pure hypercholesterolemia, unspecified; F43.10 Post-traumatic stress disorder, unspecified; F90.9 Attention-deficit hyperactivity disorder, unspecified type; Z79.899 Other long term (current) drug therapy; Z79.82 Long term (current) use of aspirin; Z88.8 Allergy status to other drugs, medicaments and biological substances; Z91.010 Allergy to peanuts; G43.909 Migraine, unspecified, not intractable, without status migrainosus; K21.9 Gastro-esophageal reflux disease without esophagitis

== ENCOUNTER → 2018-06-14 | Outpatient (CLI) | payer OTHER | LOC: M PAIN 15:15 | DX: M51.16 Intervertebral disc disorders with radiculopathy, lumbar region (principal); M51.17 Intervertebral disc disorders with radiculopathy, lumbosacral region; M43.17 Spondylolisthesis, lumbosacral region; J45.909 Unspecified asthma, uncomplicated; F31.9 Bipolar disorder, unspecified; E78.00 Pure hypercholesterolemia, unspecified; G47.00 Insomnia, unspecified; G25.0 Essential tremor; E29.1 Testicular hypofunction; K21.9 Gastro-esophageal reflux disease without esophagitis; Z87.891 Personal history of nicotine dependence; Z85.49 Personal history of malignant neoplasm of other male genital organs; Z88.8 Allergy status to other drugs, medicaments and biological substances | CPT/HCPCS: G0463 ==

== ENCOUNTER → 2018-07-01 | Outpatient (CLI) | payer OTHER | LOC: M PAIN 13:45 | DX: M43.17 Spondylolisthesis, lumbosacral region (principal); M51.16 Intervertebral disc disorders with radiculopathy, lumbar region; M51.17 Intervertebral disc disorders with radiculopathy, lumbosacral region; J45.909 Unspecified asthma, uncomplicated; F31.9 Bipolar disorder, unspecified; L71.9 Rosacea, unspecified; G47.00 Insomnia, unspecified; E78.00 Pure hypercholesterolemia, unspecified; F11.20 Opioid dependence, uncomplicated; Z79.82 Long term (current) use of aspirin; Z79.899 Other long term (current) drug therapy; Z88.8 Allergy status to other drugs, medicaments and biological substances; Z87.19 Personal history of other diseases of the digestive system; Z86.69 Personal history of other diseases of the nervous system and sense organs; Z87.891 Personal history of nicotine dependence; Z85.47 Personal history of malignant neoplasm of testis | CPT/HCPCS: G0463 ==

== ENCOUNTER → 2018-07-25 | Outpatient (CLI) | payer OTHER | LOC: M PAIN 16:00 | DX: M51.16 Intervertebral disc disorders with radiculopathy, lumbar region (principal); M43.17 Spondylolisthesis, lumbosacral region; G89.29 Other chronic pain; J45.909 Unspecified asthma, uncomplicated; F31.9 Bipolar disorder, unspecified; L71.9 Rosacea, unspecified; E78.00 Pure hypercholesterolemia, unspecified; G25.0 Essential tremor; G47.00 Insomnia, unspecified; F11.20 Opioid dependence, uncomplicated; Z79.82 Long term (current) use of aspirin; Z79.899 Other long term (current) drug therapy; Z88.8 Allergy status to other drugs, medicaments and biological substances; Z87.891 Personal history of nicotine dependence; Z87.19 Personal history of other diseases of the digestive system; Z85.47 Personal history of malignant neoplasm of testis | CPT/HCPCS: G0463 ==

== ENCOUNTER → 2018-08-31 | Outpatient (CLI) | payer OTHER ==
[~2018-08-31] MED LIST changes: +/BACL20TA; +/DULO30CA; +/DULO30CA OR; +/FEXO18TA OR; +/LANS30GR; +/LANS30GR OR; +/OXYC15TA; +/TAMS4CA OR; +ABIL10TA9 PO; +ABIL1TAB11 PO; +ABIL5TAB OR; +ADDE10CA3 PO; +ADDE10TA PO; +ADDE1TAB14 PO; +ADDE1TAB22 PO; +ADDE20CA3 PO; +ADVAIR; +ADVAIR INH; +ALBU17IN2 IN; +ALBUPOW9 INH; +ARTHROTEC; +ARTHROTEC OR; +ASPI1TAB PO; +ASPI81TA85 PO; +ATARAX OR; +AZEL0.05 OU; +BACL10TA2 PO; +CETI10TA OR; +CETI10TA PO; +CLAR5CHW; +CLAR5CHW OR; +CLOT1CRE71 TOP; +COLA100C2; +COLA100C2 OR; +COLA100C5 PO; +CYCL10TA PO; +CYMB1CAP4 PO; +CYMB60CA3 PO; +DEPA250T32 PO; +DEPA500T OR; +DIAZ10TA2 PO; +DOXY100T; +DOXY100T OR; +EFFE150C OR; +ERYTHROMYCI1; +ETOD20CA PO; +FLECTOR PATCH; +FLEX10TA2 PO; +FLEXERIL; +FLEXERIL PO; +GABA-843 PO; +HYDR-3363 PO; +HYDR25TA8; +HYDR25TA8 OR; +IBUP1TAB7 PO; +IBUP80TA PO; +INDO50CA PO; -ISOVUE-M 300 61% 15ML VIAL (Q9967) As Ordered; +KLON0.5T PO; +LAMI25TA PO; +LATU40TA PO; +LIDO5DIS; +LIDO5DIS EX; +LIDO5TD TD; -LIDOCAINE 1% SDV INJ 30 ML VIAL As Ordered; +LYRI150C; +LYRI200C; +LYRI200C OR; +LYRI225C; +LYRI300C; +MAGN500T2; +METH-872 PO; +METH5TAB2 OR; +METH750T PO; +METO5TAB2 OR; +MIRT15TA50 PO; +MULTIVIT OR; +MULTIVIT PO; +OPAN10TA16; +OXYC10TA12 OR; +OXYCODONE IR PO; +PERC7.5T12 PO; +PHEN 25 OR; +PRAV10TA4 OR; +PRAV10TA4 PO; +PRAZ1CAP PO; +PRAZ2CAP PO; +PREV1CAP PO; +PROTOPIC; +PROV200T5 OR; +PROV90AE; +PROVIGIL; +Patanol OU; +REST15CA PO; +REST30CA PO; +RITA10TA; +ROBA500T OR; +SERO50TA PO; +SERO50TA3 PO; +SING10TA31; +SING10TA31 OR; +SKEL800T5 OR; +SUMA100T2 PO; +SUMAPOW3 PO; +TEMA15CA2 OR; +TEMA30CA; +TEMA30CA OR; +TEST200I14 IM; +TESTPOW5 IM; +THERGRAN; +TIZA4CAP PO; +TIZA4TAB OR; +TOPI100T; +TRAM50TA2; +TRAM50TA2 OR; +TRAZ100T; +TRAZ100T OR; +TYLE500T53 OR; +ULTR200T; +ULTR300T; +VENL75TA2 OR; +VITA100027; +VITA100027 OR; +VITA100067 PO; +VITA100072 PO; +VOLT1GEL; +VOLT1GEL EX; +VOLT1GEL TOP; +VOLT1GEL15 TOP; +WELL100T PO; +ZANA4CAP PO; +ZANA4TAB PO; +ZOMI5TAB; +ZOMI5TAB OR; -diazePAM 5 MG TAB As Ordered; -methylPREDNISolone SUSP 40 MG/ML (DEPO-medrol) VIAL (J1030) As Ordered; +mirtazapine PO; -oxyCODONE 5MG TAB As Ordered; +testosterone INJ; +wellbutrin PO
--- NOTE | 2018-09-17 23:39 | ECWPNPC ---
PATIENT NAME: ROGERIO MEDINA : 1965 GENDER: MALE VISIT DATE: 08/31/2018 DISCHARGE DATE: 08/31/18 1325 VISIT LOCKED DATE TIME: PHYSICIAN: JENNIFER CAMPBELL MD RESOURCE: JENNIFER CAMPBELL MD REASON FOR APPOINTMENT 1. W/C LOW BACK PAIN HISTORY OF PRESENT ILLNESS HISTORY OF PRESENT ILLNESS: PAIN THE PATIENT DESCRIBES THE PAIN... 52 YEAR OLD MALE PATIENT WITH A HISTORY OF CHRONIC LOW BACK AND THORACIC PAIN. PATIENT DESCRIBES THE PAIN ACHING, SHARP, STABBING, TENDER, SORE, SHOOTING, AND HAVING IT ALL THE TIME WITH A PAIN SCORE OF 7-10/10 DEPENDING ON PHYSICAL ACTIVITY. THE PATIENT WAS HURT IN A WORK RELATED INJURY ON 04/09/89 WHILE WORKING FOR [employer] WHEN HE FELL OFF A ROOF. THE PATIENT WAS ALSO INJURED IN ANOTHER WORK RELATED INCIDENT ON 09/20/89 WHILE WORKING FOR [employer] WHEN HE SLIPPED AND FELL DOWN CONCRETE STAIRS. THE PATIENT STATES THAT THE PAIN HAS BEEN SEVERE IN HIS THORACIC AND LOWER BACK AREA WITHIN THE LAST MONTH. 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 PATIENT DENIES UNEXPLAINABLE WEIGHT LOSS, FEVER, CHILLS, NEW CHANGES ON HIS URINARY OR BOWEL CONTROL. FALL RISK SCREENING: SCREENING :TWO OR MORE FALLS WITHOUT INJURY IN THE PAST YEAR CURRENT MEDICATIONS TAKING GABAPENTIN 300 MG CAPSULE 1 CAPSULE ORALLY WORKERS COMPENSATION FOUR TIMES DAILY MDD4 TAKING PRAVASTATIN SODIUM 10 MG TABLET 1 TABLET ORALLY ONCE A DAY TAKING ASPIR-81 81 MG TABLET DELAYED RELEASE 1 TABLET ORALLY ONCE A DAY TAKING SUMATRIPTAN SUCCINATE 100 MG TABLET 1 TABLET NEEDED, REPEAT ONCE AFTER 2 HOURS PRN ORALLY ONCE A DAY MDD=2 MAX 4 MIGRAINES/MONTH TAKING EPIPEN 2-PIERCE 0.3 MG/0.3ML DEVICE DIRECTED INJECTION ONCE FOR ALLERGIC REACTION TAKING ARTIFICIAL TEARS 0.4 % SOLUTION 1 DROP INTO EACH EYE OPHTHALMIC UP TO 6 TIMES DAILY PRN DRY EYES TAKING ALBUTEROL SULFATE HFA 108 (90 BASE) MCG/ACT AEROSOL SOLUTION 2 PUFFS INHALATION ONCE DAILY NEEDED TAKING METRONIDAZOLE 0.75 % CREAM 1 APPLICATION A THIN LAYER TO AFFECTED AREA EXTERNALLY TWICE A DAY FOR ROSACEA TAKING VOLTAREN 1 % GEL ONE APPLICATION EXTERNALLY EVERY 6 HOURS NEEDED TO LOW BACK TAKING NARCAN 0.4 MG/ML SOLUTION INJECTION NEEDED TAKING TEMAZEPAM 30 MG CAPSULE 1 CAPSULE AT BEDTIME NEEDED ORALLY ONCE A DAY TAKING LIDODERM 5 % PATCH 3 PATCH TO INTACT SKIN REMOVE AFTER 12 HOURS EXTERNALLY 2 THORAX1 BACK APPLY TO PAINFUL AREA OF BACK ON 12 HRS, OFF 12 HRS TAKING ZYRTEC 10 MG TABLET 1 TABLET ORALLY ONCE A DAY TAKING AZELASTINE HCL 0.05 % SOLUTION 1 DROP INTO AFFECTED EYE OPHTHALMIC TWICE A DAY PRN ALLERGIES TAKING HYDROXYZINE HCL 25MG TABLET 1 TABLET BY MOUTH QID PRN FOR ITCHING TAKING CLOTRIMAZOLE-BETAMETHASONE 1-0.05 % CREAM 1 APPLICATION TO BACK/CHEST/LEGS EXTERNALLY TWICE A DAY PRN FOLLICULITIS TAKING VITAMIN D 400 UNIT TABLET 1 CAPSULE ORALLY ONCE A DAY, NOTES: NOT LATELY TAKING ZANAFLEX 4 MG TABLET 1 TABLET NEEDED ORALLY BEFORE BEDTIME MAY REPEAT IN 4 HRS MDD2 TAKING PREVACID 30 MG CAPSULE DELAYED RELEASE 1 CAPSULE BEFORE A MEAL ORALLY DAILY TAKING MAY HAVE - - MEDICAL MARIJUANA DROPS AND VAPE NEEDED TAKING COLACE 100 MG CAPSULE 2 CAPSULES ORALLY FOUR TIMES A DAY MDD8 TAKING METHADONE HCL 10 MG TABLET 1 TABLET ORALLY 1 EVERY 6 HRS DAILY FOR PAIN MDD4 CHRONIC PAIN TAKING INDOMETHACIN 50 MG CAPSULE 1 CAPSULE WITH FOOD OR MILK ORALLY TWICE A DAY, NOTES: FOR CHRONIC PAIN SYNDROME NOT-TAKING TESTOSTERONE CYPIONATE 200 MG/ML SOLUTION 1.75 ML INTRAMUSCULAR INJECTED MONTHLY (MDD: 1.75 ML/MONTH) CODE F MEDICATION LIST REVIEWED AND RECONCILED WITH THE PATIENT PAST MEDICAL HISTORY CHRONIC BACK PAIN H/O T8 FRACTURE AND T6-7 DISC HERNIATION ASTHMA ALLERGIC RHINITIS DEPRESSION/BIPOLAR DISORDER ROSACEA/FOLLICULIITS H/O KIDNEY STONES GASTROPARESIS INSOMNIA LOW TESOSTERONE HERNIATED DISC L3-L5, HIGH CHOLESTEROL REFLUX 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 MOM-DEPRESSIONBROTHER- UNKNOWN MEDICAL HISTORY. SOCIAL HISTORY GENERAL: TOBACCO USE ARE YOU A:FORMER SMOKER HOW LONG HAS IT BEEN SINCE YOU LAST SMOKED?> 10 YEARS VAPORYES ALCOHOL SCREENING DID YOU HAVE A DRINK CONTAINING ALCOHOL IN THE PAST YEAR?YES HOW OFTEN DID YOU HAVE A DRINK CONTAINING ALCOHOL IN THE PAST YEAR?TWO TO FOUR TIMES A MONTH (2 POINTS) HOW OFTEN DID YOU HAVE SIX OR MORE DRINKS ON ONE OCCASION IN THE PAST YEAR?NEVER (0 POINTS) POINTS2 INTERPRETATIONNEGATIVE RECREATIONAL DRUG USE DRUG USE?NO CAFFEINE CAFFEINE USE?YES HOW OFTEN AND HOW MUCH? 2 CUPS PER DAY MU-ISM [id number] NONE LANGUAGE LANGUAGES SPOKEN:SLOVENIAN LEARNING BARRIERS / SPECIAL NEEDS CHANGE FROM LAST VISIT?NO BARRIERS TO LEARNING?NO HEARING IMPAIRED?NO VISION IMPAIRED?YES :CORRECTIVE LENSES COGNITIVELY IMPAIRED?NO READINESS TO LEARN?YES LEARNING PREFERENCES?NO LEARNING CAPABILITIES PRESENT?YES EMOTIONAL BARRIERS?NO SPECIAL DEVICES?NO MEDICAL GENETICS DIRECTOR NEEDED?NO DOMESTIC VIOLENCE DO YOU FEEL SAFE IN YOUR ENVIRONMENT?YES PAIN CLINIC PFS, CLERGY, PUBLIC HEALTH REFERRALS PFS REFERRAL NEEDED?NO CLERGY REFERRAL NEEDED?NO PUBLIC HEALTH REFERRAL NEEDED?NO WAS THE PROVIDER NOTIFIED OF ANY PERTINENT INFO? N/A HAS THE PATIENT BEEN EDUCATED REGARDING HIS/HER PLAN OF CARE?YES HAS THE PATIENT BEEN EDUCATED REGARDING PAIN, THE RISK FOR PAIN, THE IMPORTANCE OF EFFECTIVE PAIN MANAGEMENT, AND THE PAIN ASSESSMENT PROCESS?YES ADVANCE DIRECTIVE ADVANCE DIRECTIVE DISCUSSED WITH PATIENT:YES HAS PROXY - COLLEEN MEDINA [phone] REVIEWED WITH PT 08/31/18 1158 LAS. HOSPITALIZATION/MAJOR DIAGNOSTIC PROCEDURE ACCIDENTAL OVERDOSE (SLEEPING PILLS) [place] 11/[place] [place] REVIEW OF SYSTEMS REVIEWED BY: PROVIDER: JENNIFER CAMPBELL MD . CONSTITUTIONAL: ANY CHANGE IN YOUR MEDICAL CONDITION? NO . CHILLS NO . FEVER NO . INFECTION: DO YOU HAVE NEW INFECTIONS? NO . DO YOU HAVE HISTORY OF MRSA? NO . MUSCULOSKELETAL: ANY NEW PATTERNS OF PAIN OR NUMBNESS? YES PT REPORTS TOES OF BOTH FEET HAVE BEEN EXPERIENCING SOME TINGLING FEELING, THIS IS INTERMITTANT, HAS OCCURED 4-5 TIMES OVER THE PAST MONTH. PT DENIES ANY PRECIPITATING EVENT. . GASTROENTEROLOGY: ANY NEW CHANGE IN BOWEL CONTROL? NO . GENITOURINARY: ANY NEW CHANGE IN BLADDER CONTROL? NO . IS THERE A CHANCE YOU COULD BE ? NO . HEMATOLOGY/LYMPH: DO YOU TAKE ANY BLOOD THINNERS? (FOR EXAMPLE- COUMADIN, PLAVIX, AGGRENOX, PLATEL, PRADAXA, OR XARELTO) NO . WHEN WAS YOUR LAST DOSE? DATE: TIME: . NEUROLOGY: HAVE YOU FALLEN IN THE PAST 6 MONTHS? YES PT REPORTS THAT OCCASIONALLY (7-8 TIMES IN LAST SIX MONTHS) WHEN HE IS WALKING , HE WILL EXPERIENCE A SUDDEN PAIN IN HIS LOW BACK/BUTTOCKS, WHICH CAUSES HIS KNEE TO BUCKLE AND HE STUMBLES, ALTHOUGH HE HAS BEEN ABLE TO CATCH HIMSELF AND NOT FALL FULLY TO THE GROUND. . ANY NEW EXTREMITY NUMBNESS OR WEAKNESS? YES PT REPORTS TOES OF BOTH FEET HAVE HAD SOME OCCASIONAL INTERMITTANT NUMBNESS/TINGLING, SEE ABOVE. . CARDIOLOGY: DO YOU HAVE A PACEMAKER OR DEFIBRILLATOR? NO . RESPIRATORY: HAVE YOU BEEN SICK IN THE PAST WEEK? NO . FEVER NO . FLU LIKE SYMPTOMS? NO . COUGH NO . INTEGUMENTARY: DO YOU HAVE ANY RASHES OR OPEN SORES? NO . ALLERGIC/IMMUNO: ARE YOU ALLERGIC TO SHELLFISH OR IV DYE? NO . ANY NEW ALLERGIES? NO . PSYCHIATRIC: DO YOU HAVE THOUGHTS OF HURTING YOURSELF OR SOMEONE ELSE? NO . ARE YOU ABUSED, NEGLECTED, OR IN AN UNSAFE ENVIRONMENT? NO . ENDOCRINOLOGY: ARE YOU DIABETIC? NO . OTHER: DO YOU NEED ANY PRESCRIPTIONS? NO . IF YES, PLEASE LIST: ____ . ANY NEW PROBLEMS WITH YOUR MEDICATIONS? NO . WHEN DID YOU LAST EAT? ____ . WHEN DID YOU LAST DRINK? ____ . WHAT DID YOU LAST DRINK? ____ . NAME OF PERSON DRIVING YOU HOME? ____ . DO YOU HAVE ANY OTHER QUESTIONS OR CONCERNS NO . VITAL SIGNS WT 180.8 LBS, HT 68 IN, BMI 27.49 INDEX, BP 135/72 MM HG, HR 92 /MIN, RR 18 /MIN, TEMP 97.6 F, OXYGEN SAT % 96%, SAFE IN ENV? (Y/N) YES, NA INITIALS AW 1151, REVIEWED BY: SILAS. EXAMINATION GENERAL EXAMINATION: PATIENT IS ALERT O X 3 AND COOPERATIVE. TENDERNESS OVER PARASPINAL MUSCLE GROUP OF THE THORACIC AND LOW BACK. INCREASING PAIN OVER THE FACET JOINTS WITH EXTENSION AND LATERAL ROTATION OF THE THORACIC AND LOW BACK. MRI OF THE LUMBAR SPINE DONE ON 06/20/18 SHOWS FACET ARTHROPATHY CHANGES AND PARS DEFECT AT L5-S1. MRI OF THE THORACIC SPINE DONE ON 10/11/06 SHOWS FACET ARTHROPATHY CHANGES. ECG DONE ON 08/12/2018 SHOWS SINUS BRADYCARDIA. 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 MEDINA'S PAIN MANAGEMENT CASE. DUE TO THE LUMBAR AND THORACIC SPONDYLOSIS, I WOULD LIKE TO MOVE FORWARD WITH A BILATERAL T5-T6 AND L4-L5 THERAPEUTIC FACET BLOCK AT THIS TIME. WE DISCUSSED THE BENEFITS, RISKS, AND ALTERNATIVES OF THE INJECTION AND THE PATIENT WOULD LIKE TO PROCEED. THE PATIENT BROUGHT HIS MEDICATION IN THE ORIGINAL BOTTLE TO TODAY'S VISIT, SO I WILL PERFORM A PILL COUNTING TODAY. URINE TOXICOLOGY REPORT DONE ON 07/25/2018 SHOWS CONCURRENT RESULTS. THE PATIENT WILL FOLLOW UP IN 6 WEEKS. INSTRUCTIONS WERE GIVEN, QUESTIONS WERE ANSWERED, PATIENT REPORTS UNDERSTANDING AND AGREES WITH THE PLAN. I, ENRIQUETA BARRERA, DOCUMENTED THE ABOVE INFORMATION ACTING A SCRIBE FOR DR. CAMPBELL. I HAVE REVIEWED THE ABOVE DOCUMENT, WRITTEN BY ENRIQUETA LOERAIBYumiko AND I VERIFY THAT IT IS ACCURATE. PROCEDURES PN WORKMANS' COMP OPINION IN YOUR OPINION, WAS THE INCIDENT THAT THE PATIENT DESCRIBED THE COMPETENT MEDICAL CAUSE OF THIS INJURY/ILLNESS? YES ARE THE PATIENT'S COMPLAINTS CONSISTENT WITH HIS/HER HISTORY OF THE INJURY/ILLNESS? YES IS THE PATIENT'S HISTORY OF THE INJURY/ILLNESS CONSISTENT WITH YOUR OBJECTIVE FINDING? YES WHAT IS THE PERCENTAGE OF TEMPORARY IMPAIRMENT? MARKED = 75% IS THE PATIENT WORKING? NO DOCTOR ON SITE: JENNIFER BACON MD PROCEDURE CODES FA211 ESTABILISHED PATIENT [facility] FACILITY CHARGE G8427 CURRENT MEDS W/DOSAGES DOCUMENTED G8730 PAIN ASSESS POS TOOL F/U PLAN DOC DISPOSITION & COMMUNICATION FOLLOW UP 6 WEEKS ELECTRONICALLY SIGNED BY JENNIFER CAMPBELL MD, MD ON 09/17/2018 AT 08:06 PM EST DISCLAIMER : THIS IS A VISIT SUMMARY EXTRACTED FROM THE [employer](TM) by [employer] CHART. IT IS NOT A COPY OF THE [employer]TM) by [employer] PROGRESS NOTE. VIJI
== END ==
LOC: M PAIN 11:45
PROVIDERS: ATTEND Anesthesiology
DX: M47.816 Spondylosis without myelopathy or radiculopathy, lumbar region (principal); M47.814 Spondylosis without myelopathy or radiculopathy, thoracic region; G89.29 Other chronic pain; J45.909 Unspecified asthma, uncomplicated; L71.9 Rosacea, unspecified; K31.84 Gastroparesis; G47.00 Insomnia, unspecified; E78.00 Pure hypercholesterolemia, unspecified; G25.0 Essential tremor; F11.20 Opioid dependence, uncomplicated; Z79.899 Other long term (current) drug therapy; Z79.82 Long term (current) use of aspirin; Z88.8 Allergy status to other drugs, medicaments and biological substances; Z86.59 Personal history of other mental and behavioral disorders; Z85.47 Personal history of malignant neoplasm of testis; Z87.891 Personal history of nicotine dependence

== ENCOUNTER → 2018-09-23 | Outpatient (CLI) | payer OTHER ==
--- NOTE | 2018-09-23 16:11 | REP ---
Scrotal sonography: History: Testicular lump. History of Sertoli tumor left testicle, post orchiectomy. Painless lump right testicle. Findings: High-resolution bilateral scrotal sonography is performed. The left testis is surgically absent. Right testis measures 3.7 x 2.1 x 3.3 cm. No intratesticular mass lesion is seen. There are small right-sided epididymal cysts, the largest of which measures 1 cm in greatest diameter. There are two scrotal pearls. These measure 0.3 cm in greatest diameter. Testicular Doppler flow is normal in the right testis with resistive index 0.58. There is a small right-sided hydrocele. Impression: No significant abnormality. No intratesticular mass lesion. Electronically Signed by Souleymane Gloria MD 09/23/2018 04:45 P
== END ==
LOC: M RAD 12:47
PROVIDERS: ATTEND Family Medicine
DX: N43.3 Hydrocele, unspecified (principal); N50.3 Cyst of epididymis

== ENCOUNTER → 2018-10-27 | Outpatient (REF) | payer OTHER ==
[2018-10-27 14:08] LABS: FOLLICLE STIMULATING HORMONE 15.7 mIU/mL (1.4-18.1)
== END ==
LOC: M SFHCPLAZ 11:42
PROVIDERS: ATTEND Family Medicine
DX: E29.1 Testicular hypofunction (principal)

== ENCOUNTER → 2021-11-27 | Outpatient (CLI) | payer OTHER ==
[~2021-11-27] MED LIST changes: -/BACL20TA; -/DULO30CA; -/DULO30CA OR; -/OXYC15TA; -/TAMS4CA OR; -ASPI1TAB PO; +ASPI81TA26 PO; -ASPI81TA85 PO; +ASPI81TA86 PO; +BACL1TAB9; +CYCL-707 PO; -CYCL10TA PO; +CYMB1CAP5; +CYMB1CAP5 OR; -CYMB60CA3 PO; +CYMB60CA4 PO; +ETOD200C31 PO; -ETOD20CA PO; +FLOM0.4C39 OR; +GABA-282 PO; -GABA-843 PO; -INDO50CA PO; +INDO50CA91 PO; -LATU40TA PO; +LATU40TA2 PO; +METH-1178 PO; -METH-872 PO; +OXYC1TAB32; +SERO50TA27 PO; -SERO50TA3 PO
[2021-11-28 16:09] LABS: Lyme Disease IgG/IgM Antibodie <0.91 ISR (0.00-0.90); Lyme Disease IgM Ab Quantitati <0.80 index (0.00-0.79)
== END ==
LOC: M LAB 09:09
PROVIDERS: ATTEND Nurse Practitioner Family
DX: S30.86 Insect bite (nonvenomous) of abdomen, lower back, pelvis and external genitals (principal); X58.XXXS Exposure to other specified factors, sequela; Y92.9 Unspecified place or not applicable; Y93.9 Activity, unspecified; Y99.9 Unspecified external cause status

== ENCOUNTER → 2021-12-04 | Outpatient (CLI) | payer OTHER | LOC: M RAD 06:01 | PROVIDERS: ATTEND Nurse Practitioner | DX: M16.11 Unilateral primary osteoarthritis, right hip (principal) ==

== ENCOUNTER → 2022-08-03 | Outpatient (CLI) | payer OTHER ==
[2022-08-03 07:41] LABS: ALBUMIN 3.9 G/DL (3.2-5.2); ALKALINE PHOSPHATASE 56 U/L (46-116); ALT/SGPT 36 U/L (7.0-40); AST/SGOT 25 U/L (<34); BILIRUBIN,TOTAL 0.6 MG/DL (0.3-1.2); BLOOD UREA NITROGEN 20 MG/DL (9-23); CALCIUM LEVEL 8.9 MG/DL (8.5-10.1); CARBON DIOXIDE LEVEL 25 MMOL/L (20-31); CHLORIDE LEVEL 104 MMOL/L (98-107); CHOLESTEROL LEVEL 194 MG/DL (<200); CHOLESTEROL RISK RATIO 4.19 (<5); GLOMERULAR FILTRATION RATE > 60.0 (>56); GLUCOSE, FASTING 102 MG/DL (60-100); HDL CHOLESTEROL 46.3 MG/DL (>40); LDL CHOLESTEROL 134.9 MG/DL (<100); NON-HDL-C 148 MG/DL; POTASSIUM SERUM 4.6 MMOL/L (3.5-5.1); SODIUM LEVEL 138 MMOL/L (136-145); TOTAL PROTEIN 6.8 G/DL (5.7-8.2); TRIGLYCERIDES LEVEL 64 MG/DL (<150)
== END ==
LOC: M LAB 06:35
PROVIDERS: ATTEND Nurse Practitioner
DX: E78.2 Mixed hyperlipidemia (principal)

== ENCOUNTER → 2023-09-20 | Outpatient (CLI) | payer OTHER ==
[2023-09-20 07:31] LABS: ALKALINE PHOSPHATASE 71 U/L (46-116); ALT/SGPT 46 U/L (7.0-40); AST/SGOT 32 U/L (<34); BILIRUBIN,TOTAL 0.7 MG/DL (0.3-1.2); BLOOD UREA NITROGEN 15 MG/DL (9-23); CALCIUM LEVEL 9.2 MG/DL (8.5-10.1); CARBON DIOXIDE LEVEL 25 MMOL/L (20-31); CHLORIDE LEVEL 106 MMOL/L (98-107); CHOLESTEROL LEVEL 186 MG/DL (<200); CHOLESTEROL RISK RATIO 3.75 (<5); CREATININE FOR GFR 0.99 MG/DL (0.70-1.30); GLOMERULAR FILTRATION RATE > 60.0 (>56); GLUCOSE, FASTING 79 MG/DL (60-100); HDL CHOLESTEROL 49.5 MG/DL (>40); LDL CHOLESTEROL 114.9 MG/DL (<100); NON-HDL-C 136.5 MG/DL; POTASSIUM SERUM 3.9 MMOL/L (3.5-5.1); SODIUM LEVEL 138 MMOL/L (136-145); TOTAL PROTEIN 7.3 G/DL (5.7-8.2); TRIGLYCERIDES LEVEL 108 MG/DL (<150); VITAMIN B12 LEVEL 408 PG/ML (211-911)
== END ==
LOC: M LAB 06:30
PROVIDERS: ATTEND Family Medicine
DX: I10 Essential (primary) hypertension (principal); E53.8 Deficiency of other specified B group vitamins; E78.2 Mixed hyperlipidemia; F10.10 Alcohol abuse, uncomplicated

== ENCOUNTER → 2025-03-09 | Outpatient (REF) | payer BC ==
[~2025-03-09] MED LIST changes: +GABA-1172 PO; -GABA-282 PO; -KLON0.5T PO; +KLON0.5T8 PO; +PRAV10TA PO; -PRAV10TA4 PO
== END ==
LOC: M SFHCDERM 07:49
PROVIDERS: ATTEND Nurse Practitioner Family
DX: Z53.9 Procedure and treatment not carried out, unspecified reason (principal)

== ENCOUNTER → 2025-03-09 | Outpatient (CLI) | payer BC | LOC: M LAB 08:24 | PROVIDERS: ATTEND Nurse Practitioner Family | DX: T14.8XXS Other injury of unspecified body region, sequela (principal); W57.XXXS Bitten or stung by nonvenomous insect and other nonvenomous arthropods, sequela ==